=== PATIENT | male | born 1955 | race Caucasian/White ===

== ENCOUNTER 2017-11-29 08:04 | Emergency (ER) | payer MEDICAID ==
[~2017-11-29] VITALS: Ht 182.9 cm; Wt 63.5 kg
[~2017-11-29 08:04] MED LIST: ACCUNEB SO1.25 MG/1 MISCELL; ACETAMINOPHEN325 M1 PO; ACETAMINOPHEN650 M1 PO; ALBUTEROL SULFAT2 MG INH; ALBUTEROL2.5 MG/0.5 INH; ALLERGY MEDICAT25 MG PO; ALLOPURINOL 10100 M1 PO; AMBIEN 5 MG TABL5 M1 PO; AMBIEN5 MG PO; AMLACTIN1 EACH TP; ASPIR 8181 MG PO; ATIVAN0.5 MG PO; ATIVAN1 MG PO; BACTRIM DS TAB1 EAC1 PO; BACTRIM DS TAB1 EACH PO; BENADRYL25 MG PO; CARDIZEM CD120 MG PO; CARDIZEM CD180 MG PO; CARDIZEM30 MG PO; CELEXA20 MG PO; CENTRUM SILVER1 EAC4 PO; CIPRO250 M1 PO; CIPROFLOXACIN500 M1 PO; COLACE100 MG PO; CORDARONE200 MG PO; DIPHENHYDRAMINE25 M3 PO; DOXYCYCLINE 10100 MG PO; DULCOLAX5 MG PO; DUONEB 2.5-0.5 M3 ML INH; FEVERALL650 MG RECTAL; FLEXERIL PO; FLOMAX0.4 MG PO; FLONASE 0.05%50 MCG NASAL; FLORANEX TABLE1 EACH PO; FOLIC ACID1 MG PO; GABAPENTIN 100100 MG PO; HYDROCODON-ACE1 EAC7 PO; HYDROCODON-ACE1 EACH PO; HYDROCODONE-AP1 EAC6 PO; HYDROXYZINE HCL25 M1 PO; HYDROXYZINE HCL50 MG PO; K-PHOS #2 TABL1 EACH PO; LEVAQUIN 500 M500 M1 PO; LEVAQUIN 500 M500 M2 PO; LEVAQUIN 500 M500 M3 PO; LEVAQUIN 500 M500 M4 PO; LEVOTHYROXIN0.112 M1 PO; LEVOTHYROXINE 0.15MG PO; LOPRESSOR 12.12.5 MG PO; LOPRESSOR25 PO; MAG-AL PLUS SUS30 ML PO; MAGNESIUM OXID200 MG PO; MAGOX 400400 MG PO; MEDROLDOSEPACK PO; MEGESTROL400 MG/12; MELATONIN3 MG PO; MELATONIN5 M1 PO; MEROPENEM 1 GM V1 GM IVPB; METOPROLOL TART25 MG PO; MILK OF MA400 MG/5 M PO; MINOCIN100 MG PO; MIRALAX17 GM PO; MOBIC7.5 MG; MUCINEX600 MG PO; NEBULIZER MISCELL; NORCO 5-325 TA1 EACH PO; NORVASC 5 MG TAB5 MG PO; NYSTATIN 1100000 U/M PO; OMEPRAZOLE 20 M20 M1 PO; ONDANSETRON HCL4 M2 IV PUSH; ONDANSETRON HCL4 M2 PO; PANTOPRAZOLE SO40 M1 PO; PAXIL10 MG; PAXIL10 MG PO; PERCOCET 5-3251 EACH PO; PERCOCET PO; PHENERGAN 25 MG25 M1 IV PUSH; PHENERGAN 25 MG25 M1 PO; PREDNISONE 10 M10 M1 PO; PREDNISONE 10 M10 MG PO; PREDNISONE 20 M20 MG PO; PREDNISONE10 MG PO; PROAIR HFA8.5 GM INH; PROBIOTIC1 EAC1 PO; PROSCAR 5MG TABL5 MG PO; PROTONIX40 M1 PO; RAPAFLO8 MG PO; REMERON15 MG; SALINE NASAL SP30 ML NASAL; SYMBICORT160 MCG/4. INH; THERAGRAN-M PR1 EAC1 PO; THIAMINE HCL100 MG PO; TRAMADOL 50 MG50 MG PO; TRINATE TABLET1 TAB PO; TYLENOL325 MG PO; ULTRAM50 MG PO; UNICOMPLEX M TA1 TA1 PO; VANCOMYCIN HCL1 GM IV; VITAMIN B-1100 M1 PO; ZANTAC 150MG T150 MG PO
[2017-11-29] MEDS ORDERED: FLOMAX0.4 MG PO (08:12)
[2017-11-29 08:34] LABS: ABSOLUTE EOSINOPHILS 0.7 thou/uL (0.0-0.7); ABSOLUTE LYMPHOCYTES 1.6 thou/uL (0.8-5.3); ABSOLUTE MONOCYTES 0.8 thou/uL (0.0-1.2); BASOPHILS 0.4 %; EOSINOPHILS 8.9 %; HEMATOCRIT 40.4 % (42.0-52.0); HEMOGLOBIN 13.7 gm/dL (14.0-18.0); LYMPHOCYTES 19.1 %; MCH 31.1 pg (26.0-34.0); MCV 91.5 fL (80.0-100.0); MONOCYTES 9.4 %; MPV 6.8 fl. (7.2-11.1); NUCLEATED RBCS 0 /100WBC; PLATELET COUNT* 173 thou/uL (150-400); POLYS 62.2 %; RBC 4.42 mil/uL (4.50-6.00); RDW-CV 18.2 % (10.5-14.5); WBC 8.1 thou/uL (4.0-11.0)
[2017-11-29 08:41] LABS: CALCIUM 8.6 mg/dL (8.5-10.1); CREATININE 0.8 mg/dL (0.6-1.3); POTASSIUM 3.7 mmol/L (3.5-5.1)
[2017-11-29 08:46] LABS: ALBUMIN 3.5 g/dL (3.4-5.0); TOTAL BILIRUBIN 0.6 mg/dL (<0.1-1.0)
[2017-11-29 08:54] LABS: URINE BILIRUBIN NEGATIVE (Negative); URINE BLOOD 2+ (Negative); URINE CLARITY CLEAR; URINE COLOR YELLOW; URINE GLUCOSE-RANDOM NEGATIVE (Negative); URINE KETONES NEGATIVE (Negative); URINE NITRITE-REFLEX NEGATIVE (Negative); URINE PROTEIN TRACE (Negative); URINE UROBILINOGEN 0.2 E.U./dl (0.2-1.0)
[2017-11-29 08:55] LABS: URINE LEUKOCYTES-REFLEX 2+ (Negative)
[2017-11-29 09:00] LABS: CASTS None Seen /LPF (None Seen); CRYSTALS None Seen /LPF (None Seen); MUCUS 0-3 Light strn/LPF (None Seen); SQUAMOUS 0-3 Few /LPF (0-3); URINE RBC 3-10 Few /HPF (0-2)
[2017-11-29] MEDS ORDERED: ZOFRAN ODT4 MG PO (10:31)
[2017-11-29] MEDS ORDERED: PHENAZOPYRIDIN200 M2 PO (10:31)
[2017-11-29] MEDS ORDERED: BACTRIM DS TAB1 EACH PO (10:31)
[2017-11-29 10:48] VITALS: BP 130/76
== END 2017-11-29 10:58 | disposition home or self-care (01) ==
LOC: M.ERS 08:04
PROVIDERS: Emergency Medicine Emergency Medical Services
DX: R33.9 Retention of urine, unspecified (principal); N39.0 Urinary tract infection, site not specified; R31.9 Hematuria, unspecified; I48.91 Unspecified atrial fibrillation; F17.210 Nicotine dependence, cigarettes, uncomplicated; J44.9 Chronic obstructive pulmonary disease, unspecified; F41.9 Anxiety disorder, unspecified; Z86.14 Personal history of Methicillin resistant Staphylococcus aureus infection; Z88.0 Allergy status to penicillin

== ENCOUNTER 2017-12-02 17:24 | Inpatient (IN) | payer MEDICAID ==
[~2017-12-02] VITALS: Ht 182.9 cm; Wt 63.5 kg
[~2017-12-02 17:24] MED LIST changes: +PHENAZOPYRIDIN200 M2 PO; +ZOFRAN ODT4 MG PO
[2017-12-02 17:27] VITALS: BP 132/84
[2017-12-02 18:30] LABS: ABSOLUTE EOSINOPHILS 0.6 thou/uL (0.0-0.7); ABSOLUTE LYMPHOCYTES 1.9 thou/uL (0.8-5.3); ABSOLUTE MONOCYTES 0.6 thou/uL (0.0-1.2); ABSOLUTE NEUTROPHILS 3.9 thou/uL (1.6-8.1); BASOPHILS 0.5 %; EOSINOPHILS 8.9 %; HEMATOCRIT 39.9 % (42.0-52.0); HEMOGLOBIN 13.3 gm/dL (14.0-18.0); LYMPHOCYTES 26.7 %; MCH 31.5 pg (26.0-34.0); MCHC 33.4 g/dL (28.0-37.0); MCV 94.1 fL (80.0-100.0); MONOCYTES 8.3 %; MPV 7.4 fl. (7.2-11.1); NUCLEATED RBCS 0 /100WBC; PLATELET COUNT* 181 thou/uL (150-400); POLYS 55.6 %; RBC 4.24 mil/uL (4.50-6.00); RDW-CV 17.9 % (10.5-14.5)
[2017-12-02 18:39] LABS: ANION GAP 4 mmol/L (7-16); BUN 10 mg/dL (7-18); CALCIUM 8.7 mg/dL (8.5-10.1); CHLORIDE 98 mmol/L (98-107); CO2 30 mmol/L (21-32); GLUCOSE 93 mg/dL (70-99); POTASSIUM 4.1 mmol/L (3.5-5.1); SODIUM 132 mmol/L (136-145)
[2017-12-02 18:51] LABS: URINE BILIRUBIN NEGATIVE (Negative); URINE BLOOD NEGATIVE (Negative); URINE CLARITY CLEAR; URINE COLOR YELLOW; URINE GLUCOSE-RANDOM NEGATIVE (Negative); URINE KETONES NEGATIVE (Negative); URINE LEUKOCYTES-REFLEX NEGATIVE (Negative); URINE PROTEIN NEGATIVE (Negative)
[2017-12-02 18:52] LABS: ALBUMIN 3.8 g/dL (3.4-5.0); ALKALINE PHOSPHATASE 135 U/L (46-116); LIPASE 82 U/L (73-393); NT-PRO BRAIN NAT PEPTIDE 105 pg/mL (<300); SGOT 18 U/L (15-37); SGPT 16 U/L (30-65); TOTAL BILIRUBIN 0.4 mg/dL (<0.1-1.0); TOTAL PROTEIN 7.3 g/dL (6.4-8.2); TROPONIN-I LEVEL <0.06 ng/mL (<0.06)
[2017-12-02 18:55] LABS: URINE NITRITE-REFLEX POSITIVE (Negative)
[2017-12-02 18:58] LABS: BACTERIA-REFLEX None Seen /HPF (None Seen); CASTS None Seen /LPF (None Seen); CRYSTALS None Seen /LPF (None Seen); SQUAMOUS 0-3 Few /LPF (0-3); URINE RBC None Seen /HPF (0-2); URINE WBC-REFLEX 0-5 Rare /HPF (0-5)
[2017-12-02 22:50] VITALS: BP 114/73
[2017-12-02 23:00] VITALS: BP 106/65
--- NOTE | 2017-12-03 07:27 | NUR ---
PATIENT ARRIVED ON FLOOR FROM ER ABOUT 2250. PATIENT ADMISSION HISTORY AND ASSESSMENT WAS COMPLETED CHARTED. IV FLUIDS WERE STARTED AT 100 ML/HR. STOOL FOR CULTURE AND CDIFF WERE SENT RESULTS PENDING. WILL CONTINUE TO MONITOR.
[2017-12-03 08:00] VITALS: BP 106/70
--- NOTE | 2017-12-03 12:28 | NUR ---
WOUND CARE NOTE: ASSESSMENT FOR A PRESSURE ULCER TO THE LEFT TOES. PATIENT DOES NOT HAVE ANY WOUNDS TO THE LEFT FOOT, BUT PRESENTS WITH A FULL THICKNESS ULCERATION TO THE RIGHT 2ND TOE. THIS IS FROM FRICTION/PRESSURE FROM HIS GREAT TOE. HE HAS WHAT APPEARS HALLUX VALGUS. WOUND MEASURES 0.4X0.6X0.1, WOUND BED IS MOIST, YELLOW. GIO-WOUND WITH INFLAMMATION. PATIENT ADMITS TO SIGNIFICANT PAIN TO THIS AREA LAST NIGHT THAT KEPT HIM UP. CLEANSED AREA WITH WOUND CLEANSER, PATTED DRY. APPLIED OPTIFOAM AG AND SECURED WITH TAPE. PATIENT'S TOENAILS ARE LONG AND YELLOW IN DISCOLORATION. EXTREMELY FLAKEY SKIN TO FEET EXTENDING UPWARDS TO MID VARGAS. PALPABLE PEDAL PULSES BILATERALLY. PATIENT HAD INCONTINENCE OF STOOL, CLEANSED, NEW CHUX PLACED AND BARRIER OINTMENT. BUTTOCKS, SACRUM, AND PERINEAL AREA ARE RED AND IRRITATED FROM THE STOOL. EDUCATED PATIENT TO KEEP FEET , LIKES TO HAVE THEM PRESSED TOGETHER. COMMUNICATED UNDERSTANDING. EDUCATED PATIENT ON DRESSING USED FOR TOE, COMMUNICATED UNDERSTANDING. RECOMMEND CONSULT DR. GARCIA-PAO TRIM AND R. 2ND TOE WOUND VENELEX OINTMENT TO BUTTOCKS, SACRUM, AND PERINEUM BID AND PRN INCONTINENCE FREQUENT CHECKS FOR INCONTINENCE RECTAL TUBE IF CONTINUES WITH LOOSE, LIQUID STOOL TO PROTECT SKIN ENCOURAGE GOOD NUTRITION/HYDRATION-ALBUMIN 3.8
--- NOTE | 2017-12-03 14:10 | NUR ---
SW met with pt to complete initial assessment, introduce self, and SW role. Pt lives alone andhas support in his sister. Pt has walker. Pt has hx ETOH abuse. Pt has hx LTC [facility]. Pt has hx most recently with [facility] and pt said since Medicaid does not pay for therapy, he denied needing HH for just nursing. SW to continue to follow to assist with safe dc planning.
--- NOTE | 2017-12-03 14:41 | NUR ---
Pt was seen d/t wound of full thickness ulceration to left toe. Pt was admitted d/t UTI, Diarrhea, and volume depletion. Pt was asleep when RD visited. RN stated that pt is eating well but would benefit from BOOST PLUS BID. RD ordered. Note + ETOH abuse. RN states that pt is doing better than he has in prior admission. Chart Reviewed. Low nutrition risk.
[2017-12-03 16:23] VITALS: BP 96/60
--- NOTE | 2017-12-03 17:45 | NUR ---
PATIENT HAS BEEN ALERT AND ORIENTED TODAY VERY PLEASANT. NO COMPLOAINTS OF ANY PAIN TODAY. PATIENT HAS REPORTED THAT DIARRHEA HAS SLOWED DOWN THIS AFTERNOON. VITAL SIGNS HAVE BEEN STABLE TODAY. IV WORKS WELL IN LEFT ARM FOR FLUIDS. CALL LIGHT IS IN REACH, WILL CONTINUE TO MONITOR.
[2017-12-03 20:00] VITALS: BP 112/61
--- NOTE | 2017-12-03 20:13 | EKG ---
[place] [address] ELECTROCARDIOGRAM REPORT Name: INDRA BEGUM LYLA Room: [address] ADM IN ..#: [id number] Admission: 12/02/17 Attend Phys: Kenny Herzog MD Discharge: Date of : 59 Report #: [id number] THIS REPORT FOR: //name// [facility] ED Test Date: 2017-12-02 Test Time: 17:50:37 Pat Name: INDRA BEGUM Department: Room: [facility] Gender: M Biochemistry Technician: Todd GROVE : 1955 Requested By: Juan R Weller Order Number: [id number] MD: Farooq Rodriguez Measurements Intervals [place] Rate: 66 P: 43 MI: 173 QRS: -54 QRSD: 87 T: 53 QT: 394 QTc: 413 Interpretive Statements Sinus rhythm Left anterior fascicular block RSR' in V1 or V2, right VCD or RVH Compared to ECG 09/18/2017 08:41:51 Left anterior fascicular block now present RSR' in V1 or V2 now present Atrial premature complex(es) no longer present Electronically Signed On 12-03-2017 20:13:19 SOFTWARE CONFIGURATION SPECIALIST by Farooq Rodriguez [email or web address] <ELECTRONICALLY SIGNED> By: Farooq Rodriguez MD, FACC 12/03/172012 1750 1750 Farooq Rodriguez MD, [facility] /EPI
[2017-12-04 03:54] LABS: HEMATOCRIT 37.6 % (42.0-52.0); HEMOGLOBIN 12.4 gm/dL (14.0-18.0); MCH 31.2 pg (26.0-34.0); MCV 94.4 fL (80.0-100.0); MPV 7.3 fl. (7.2-11.1); RBC 3.98 mil/uL (4.50-6.00); RDW-CV 18.7 % (10.5-14.5); WBC 7.8 thou/uL (4.0-11.0)
[2017-12-04 04:20] LABS: ALBUMIN 2.9 g/dL (3.4-5.0); CALCIUM 8.3 mg/dL (8.5-10.1); CREATININE 0.9 mg/dL (0.6-1.3); MAGNESIUM 1.7 mg/dL (1.8-2.4); POTASSIUM 5.2 mmol/L (3.5-5.1); TOTAL BILIRUBIN 0.4 mg/dL (<0.1-1.0); TOTAL PROTEIN 5.8 g/dL (6.4-8.2)
--- NOTE | 2017-12-04 05:30 | NUR ---
ASSUMED CARE OF PT AT 1900 PT ALERT AND ORIENTED X4 VS AND ASSESSMENT STABLE. PT REQUSETED AND RECIEVED MELATONIN SCHEDULED BEFORE BED THEN SLEPT THROUGH THE NIGHT. WILL CONTINUE PLAN OF CARE.
[2017-12-04 08:00] VITALS: BP 101/66
[2017-12-04 16:00] VITALS: BP 106/65
--- NOTE | 2017-12-04 19:57 | NUR ---
I ASSUMED CARE OF THE PATIENT AT 0700. HE IS ALERT AND ORIENTED X4 AND IS UP WITH ASSIST X1. HE IS ABLE TO USE THE BEDSIDE COMMODE. HOURLY ROUNDING WAS COMPLETED AND PATIENT NEEDS ARE MET. BED IS IN THE LOW LOCKED POSITION AND CALL LIGHT IS IN REACH. PAIN IS DENIED. PATIENT IS HAPPY THAT HE HAS HIS APPETITE BACK. HE HAD 2 BOWEL MOVEMENTS AND WALKED WITH PT TODAY. D/C'D ORAL VANC SINCE C.DIFF WAS NEGATIVE. HE USES A URINAL. WILL CONTINUE TO MONITOR.
[2017-12-04 20:00] VITALS: BP 130/64
[2017-12-05 04:25] LABS: ABSOLUTE EOSINOPHILS 0.7 thou/uL (0.0-0.7); ABSOLUTE LYMPHOCYTES 1.6 thou/uL (0.8-5.3); ABSOLUTE MONOCYTES 0.7 thou/uL (0.0-1.2); ABSOLUTE NEUTROPHILS 6.6 thou/uL (1.6-8.1); BASOPHILS 0.2 %; EOSINOPHILS 6.9 %; HEMATOCRIT 37.7 % (42.0-52.0); HEMOGLOBIN 12.6 gm/dL (14.0-18.0); LYMPHOCYTES 17.1 %; MCH 31.4 pg (26.0-34.0); MCHC 33.5 g/dL (28.0-37.0); MCV 93.7 fL (80.0-100.0); MONOCYTES 6.9 %; MPV 7.4 fl. (7.2-11.1); NUCLEATED RBCS 0 /100WBC; PLATELET COUNT* 190 thou/uL (150-400); POLYS 68.9 %; RBC 4.03 mil/uL (4.50-6.00); RDW-CV 18.2 % (10.5-14.5); WBC 9.6 thou/uL (4.0-11.0)
[2017-12-05 04:46] LABS: CALCIUM 8.5 mg/dL (8.5-10.1); CREATININE 0.7 mg/dL (0.6-1.3); POTASSIUM 4.5 mmol/L (3.5-5.1)
--- NOTE | 2017-12-05 04:59 | NUR ---
ASSUMED CARE OF PT AT 1900 PT ALERT AND ORIENTED X4. VS AND ASSESSMENT STABLE. PT DENIED ANY COMPLAINTS AND SLEPT THROUGH THE NIGHT. WILL CONTINUE PLAN OF CARE.
[2017-12-05 08:15] VITALS: BP 105/68
[2017-12-05 16:02] VITALS: BP 111/72
--- NOTE | 2017-12-05 19:47 | NUR ---
ALERT AND ORIENTED X4. UP STAND BY ASSIST IN ROOM. IV IS PATENT AND SALINE LOCKED. PAIN IS BEING MANAGED WITH PO PAIN MEDICATION. DENIES NAUSEA. VSS ON ROOM AIR. HOURLY ROUNDS HAVE BEEN MAINTAINED THROUGHOUT SHIFT. CALL LIGHT IS WITHIN REACH. NURSING. WILL CONTINUE TO MONITOR.
[2017-12-05 20:00] VITALS: BP 116/73
--- NOTE | 2017-12-06 04:33 | NUR ---
PATIENT ORIENTED X4. UP WITH STAND BY ASSIST TO BATHROOM. DENIES PAIN OR NAUSEA. LOOSE BM X1 THIS SHIFT. VITALS STABLE ON ROOM AIR. WILL CONTINUE TO MONITOR.
[2017-12-06 09:00] VITALS: BP 111/71
[2017-12-06 11:50] VITALS: BP 111/71
--- NOTE | 2017-12-06 12:39 | NUR ---
PATIENT IS ALERT AND ORIENTED TODAY, PLEASANT UP WITH STAND BY ASSIST. SOME COMPLAINTS OF PAIN TODAY THAT IS CONTROLLED WITH ORAL PAIN MEDICATIONS. PATIENT IS BEING DISCHARGED TO HOME, WAITING ON PROVIDER TO SIGN HOME DISCHARGE PAPERS. CALL LIGHT IS IN REACH, WILL CONTINUE TO MONITOR. PHOTOS TAKEN OF WOUNDS AND FILED IN THE CHART.
[2017-12-06 13:44] VITALS: BP 111/71
[2017-12-06 13:45] VITALS: BP 111/71
--- NOTE | 2017-12-06 13:48 | NUR ---
YUMIKO met with pt to discuss dc planning. Pt does not have SNF benefits through Medicaid only insurance and pt was hopeful to go to inpatient rehab unit but then as YUMIKO asked pt to consider going to live in assisted, pt said that he would not want to live in assisted and he wanted to go home. Pt agreeable to nurse and preference on [facility]. YUMIKO faxed referral and dc orders to [facility] at [phone].
--- NOTE | 2017-12-06 14:55 | NUR ---
PATIENT LEFT UNIT AT 1330. ALERT AND ORIENTED X4. UP STAND BY ASSIST IN ROOM. IV DC'D. PAIN BEING MANAGED WITH PO PAIN MEDICAITON. DENIES NAUSEA. ALL PERSONAL ITEMS LEFT WITH PATIENT. DISCHARGE INSTRUCTIONS, PRESCRIPTIONS, NEW MEDICATION INFORMATION SENT WITH PATIENT. VSS ON ROOM AIR. HOURLY ROUNDS HAVE BEEN MAINTAINED. LEFT WITH UNRELATED ADULT VIA CAR.
[2017-12-06 17:10] VITALS: BP 111/71
== END 2017-12-06 17:34 | disposition home health service (06) | DRG 689 ==
LOC: M.ERS 17:24 → M.TBA-ER 21:48 → M.3W 21:48
PROVIDERS: Internal Medicine; Physician Assistant; ADMIT Internal Medicine
DX: N39.0 Urinary tract infection, site not specified (principal); E43 Unspecified severe protein-calorie malnutrition; I62.03 Nontraumatic chronic subdural hemorrhage; Z68.1 Body mass index [BMI] 19.9 or less, adult; J44.9 Chronic obstructive pulmonary disease, unspecified; I10 Essential (primary) hypertension; I48.91 Unspecified atrial fibrillation; F41.9 Anxiety disorder, unspecified; F17.210 Nicotine dependence, cigarettes, uncomplicated; R19.7 Diarrhea, unspecified; R53.81 Other malaise; K29.70 Gastritis, unspecified, without bleeding; B95.2 Enterococcus as the cause of diseases classified elsewhere; Z89.422 Acquired absence of other left toe(s); Z88.0 Allergy status to penicillin; Z79.899 Other long term (current) drug therapy

== ENCOUNTER → 2017-12-15 | Outpatient (CLI) | payer MEDICAID ==
[~2017-12-15] MED LIST changes: +ACID CONTROL150 MG; +ASPERCREME1 EACH TOP; +CELEXA10 MG PO; +CLARITIN10 MG PO; +KEFLEX500 M1 PO; +LOPERAMIDE 2 MG2 M1 PO; +PEPCID20 MG PO; +PHENAZOPYRIDIN100 M1 PO; +PRENATABS FA T1 EACH PO; +REMERON15 MG PO
== END ==
LOC: M.WC 03:29
DX: S91.301D Unspecified open wound, right foot, subsequent encounter (principal); J43.9 Emphysema, unspecified; F10.10 Alcohol abuse, uncomplicated; F32.9 Major depressive disorder, single episode, unspecified; F17.200 Nicotine dependence, unspecified, uncomplicated; X58.XXXD Exposure to other specified factors, subsequent encounter

== ENCOUNTER 2018-02-14 00:23 | Inpatient (IN) | payer MEDICAID ==
[~2018-02-14] VITALS: Ht 182.9 cm; Wt 59.0 kg
--- NOTE | ~2018-02-14 | PROC ---
[address] [address] PROCEDURE REPORT Name: INDRA BEGUM LYLA Room: [address] IN M.R.#: [id number] Admission: 02/14/18 Attend Phys: Kenny Herzog MD Discharge: 02/18/18 Date of : 59 Report #: [id number] THIS REPORT FOR: //name// Please see the Provation report in Perceptive 7 content. (GI) By: 0653Medical Records Staff JOSSY /RONI
[~2018-02-14 00:23] MED LIST changes: -ACID CONTROL150 MG; -ASPERCREME1 EACH TOP; -CELEXA10 MG PO; -CLARITIN10 MG PO; -KEFLEX500 M1 PO; -LOPERAMIDE 2 MG2 M1 PO; -PEPCID20 MG PO; -PHENAZOPYRIDIN100 M1 PO; -PRENATABS FA T1 EACH PO; -REMERON15 MG PO
[2018-02-14 00:24] VITALS: BP 129/87
[2018-02-14 01:10] LABS: HEMOGLOBIN 14.3 gm/dL (14.0-18.0); MCH 33.7 pg (26.0-34.0); MCHC 34.1 g/dL (28.0-37.0); MCV 98.8 fL (80.0-100.0); MPV 7.5 fl. (7.2-11.1); NUCLEATED RBCS 0 /100WBC; PLATELET COUNT* 93 thou/uL (150-400); RBC 4.25 mil/uL (4.50-6.00); RDW-CV 15.3 % (10.5-14.5); WBC 5.7 thou/uL (4.0-11.0)
[2018-02-14 01:13] LABS: ANION GAP 11 mmol/L (7-16); APTT 29.1 Seconds (25.0-31.3); BUN 10 mg/dL (7-18); CHLORIDE 102 mmol/L (98-107); CO2 29 mmol/L (21-32); GLUCOSE 81 mg/dL (70-99); POTASSIUM 3.1 mmol/L (3.5-5.1); SODIUM 142 mmol/L (136-145)
[2018-02-14 01:24] LABS: ALBUMIN 3.4 g/dL (3.4-5.0); ALKALINE PHOSPHATASE 99 U/L (46-116); NT-PRO BRAIN NAT PEPTIDE 143 pg/mL (<300); SGOT 52 U/L (15-37); SGPT 35 U/L (30-65); TOTAL BILIRUBIN 0.6 mg/dL (<0.1-1.0); TOTAL PROTEIN 6.7 g/dL (6.4-8.2); TROPONIN-I LEVEL <0.06 ng/mL (<0.06)
[2018-02-14 02:27] LABS: ABSOLUTE EOSINOPHILS 0.9 thou/uL (0.0-0.7); ABSOLUTE LYMPHOCYTES 1.5 thou/uL (0.8-5.3); ABSOLUTE MONOCYTES 0.5 thou/uL (0.0-1.2); ABSOLUTE NEUTROPHILS 2.9 thou/uL (1.6-8.1); PLATELET ESTIMATE DECREASED
[2018-02-14 02:30] LABS: URINE BILIRUBIN NEGATIVE (Negative); URINE BLOOD NEGATIVE (Negative); URINE CLARITY CLEAR; URINE COLOR YELLOW; URINE GLUCOSE-RANDOM NEGATIVE (Negative); URINE KETONES NEGATIVE (Negative); URINE LEUKOCYTES-REFLEX 1+ (Negative); URINE NITRITE-REFLEX NEGATIVE (Negative); URINE PROTEIN NEGATIVE (Negative); URINE SPECIFIC GRAVITY <= 1.005 (1.005-1.030)
[2018-02-14 02:49] LABS: CASTS None Seen /LPF (None Seen); SQUAMOUS 0-3 Few /LPF (0-3); URINE WBC-REFLEX 6-15 Few /HPF (0-5)
[2018-02-14 02:50] LABS: BACTERIA-REFLEX 1-9 Few /HPF (None Seen); CRYSTALS None Seen /LPF (None Seen); URINE RBC 0-2 Rare /HPF (0-2)
--- NOTE | 2018-02-14 03:50 | NUR ---
PT CURRENTLY RESTING, NOTED TREMORS, DENIES BEING COLD; REPORTS WEAK; VOIDED PER URINAL WITHOUT DIFFICULTY
[2018-02-14 04:25] VITALS: BP 116/74
--- NOTE | 2018-02-14 05:34 | NUR ---
PT ADMITTED FROM ER. HISTORY AND ASSESSMENT COMPLETE. MED/SURG PT. IVF INFUSING. FALL PRECAUTIONS IN PLACE INCLUDING BED ALARM. PT REPORTS WEAKNESS WITH A FALL AT HOME YESTERDAY. AMBULATES WITH A WALKER. PT VERY THIN. APPEARS MALNOURISHED. HISTORY OF ETOH. STATES NO ETOH SINCE SEP 03. PT HAS TREMORS. CARE PLANS IN PLACE. DENIES PAIN.
[2018-02-14 08:00] VITALS: BP 111/63
--- NOTE | 2018-02-14 11:19 | EKG ---
[place] [address] ELECTROCARDIOGRAM REPORT Name: INDRA BEGUM LYLA Room: [place] [address] ADM IN [facility]#: [id number] Admission: 02/14/18 Attend Phys: Kenny Herzog MD Discharge: Date of : 59 Report #: [id number] THIS REPORT FOR: //name// [facility] ED Test Date: 2018-02-14 Test Time: 00:51:15 Pat Name: INDRA BEGUM Department: Room: Gender: Lan Engineer: : 1955 Requested By: Solomon Mcdonough Order Number: [id number] MD: Kashmir Bennett Measurements Intervals [place] Rate: 73 P: 45 MN: 196 QRS: -68 QRSD: 87 T: 61 QT: 402 QTc: 443 Interpretive Statements Sinus rhythm Atrial premature complex Left anterior fascicular block Compared to ECG 12/02/2017 17:50:37 Atrial premature complex(es) now present Electronically Signed On 02-14-2018 11:19:44 CDT by Kashmir Bennett [email or web address] <ELECTRONICALLY SIGNED> By: Kashmir Bennett MD, [facility] 02/14/18 1119 005 0051 Kashmir Bennett MD, [facility] /EPI
--- NOTE | 2018-02-14 11:26 | NUR ---
VSS, ASSUMED CARE IN THE AM, ASSESSMENT PERFORMED AND CHARTED, FALL PRECAUTIONS IN PLACE AND CALL LIGHT IN REACH, PT IS A&O4 AND UP WITH ONE AND WALKER AND IS VERY WEAK, PT IS MED-SURG STATUS, PT GOAL IS TO IMPROVE ACTIVITY AND WORK WITH PT/OT, PT STATES A HE HAS A HEAD-ACH, WILL FOLLOW WITH PLAN OF CARE AND HOURLY ROUNDS.
--- NOTE | 2018-02-14 14:21 | NUR ---
PATIENT SEEN TO ADDRESS SKIN BREAKDOWN ON RIGHT BUTTOCK. PRESENTS A HEALING STAGE 2 PRESSURE ULCER MEASURING 1.5 X 0.8 X 0.1 CM SUPERFICIAL LESON CONTAINING THIN FRIABLE EPITHELIAL TISSUE AND SCANT SEROUS DRAINAGE. PLAN TO TREAT WITH OFFLOADING -- Q2HR TURN SCHEDULE AND PROTECTING WITH MOISTURE BARRIER. THE PERIWOUND AREA IS REDDENED, BUT THIS BLANCHES EASILY AND IS UNCONCERNING AT THIS TIME. PATIENT INSTRUCTED ON IMPORTANCE OF FREQUENT REPOSITIONING AND NUTRIENT DENSE DIET. PATIENT STATES HE UNDERSTANDS.
[2018-02-14 16:00] VITALS: BP 125/62
[2018-02-14 20:00] VITALS: BP 109/64
[2018-02-14 23:38] VITALS: BP 94/58
--- NOTE | 2018-02-15 04:11 | NUR ---
ASSUMED PT CARE AT 1930, PT IS A&OX4, PT IS MED SURG. VSS. PT IS ON RA SATTING MID TO HIGH 90'S. AT THIS TIME. PT HAS IVF INFUSING PER MAR. PT IS NPO FOR PENDING MEGD THIS AFTERNOON. PT VERBALIZES UNDERSTANDING. PT IS ON ISOLATION FOR POSS. C DIFF. STOOL SAMPLE STILL NEEDS TO BE SENT DOWN TO THE LAB. PT HAS NOT HAD ANY STOOLS THIS SHIFT. PT DENIES ANY PAIN OR NEEDS AT THIS TIME. BED IN LOW POSITION, CALL LIGHT IN REACH, BED ALARM ON. YELLOW ARM BAND AND SOCKS IN PLACE. PT IS UP WITH ONE AND HIS PERSONAL WALKER TO THE BR. DUSTY CORONEL COMPLETED OF PT SAFETY.
[2018-02-15 04:47] LABS: ABSOLUTE EOSINOPHILS 0.9 thou/uL (0.0-0.7); ABSOLUTE LYMPHOCYTES 1.6 thou/uL (0.8-5.3); ABSOLUTE MONOCYTES 0.6 thou/uL (0.0-1.2); ABSOLUTE NEUTROPHILS 2.9 thou/uL (1.6-8.1); BASOPHILS 0.5 %; EOSINOPHILS 14.9 %; LYMPHOCYTES 26.6 %; MCHC 34.1 g/dL (28.0-37.0); MCV 99.5 fL (80.0-100.0); MONOCYTES 9.5 %; MPV 8.4 fl. (7.2-11.1); NUCLEATED RBCS 0 /100WBC; PLATELET COUNT* 68 thou/uL (150-400); POLYS 48.5 %; RBC 3.82 mil/uL (4.50-6.00); RDW-CV 15.7 % (10.5-14.5)
[2018-02-15 04:55] LABS: CALCIUM 8.1 mg/dL (8.5-10.1); CREATININE 0.9 mg/dL (0.6-1.3)
[2018-02-15 05:00] LABS: POTASSIUM 5.7 mmol/L (3.5-5.1)
[2018-02-15 08:00] VITALS: BP 123/71
--- NOTE | 2018-02-15 08:11 | NUR ---
ASSUMED PT. CARE AND RECEIVED REPORT AT 0730. PT A/OX4, VSS, PT MED/SURG STATUS. PT. C/O "POUNDING HEADACHE" THIS MORNING AND BEING HUNGRY. PT. NPO FOR EGD TODAY. FULL ASSESSMENT COMPLETED, REFER TO CHARTING. PT. REMAINS IN ISO FOR PENDING C-DIFF. FALL PRECAUTIONS IN PLACE, CALL LIGHT IN REACH, WILL CONTINUE WITH PLAN OF CARE.
[2018-02-15 11:00] LABS: ALBUMIN 3.1 g/dL (3.4-5.0); DIRECT BILIRUBIN 0.2 mg/dL (<0.1-0.3); TOTAL BILIRUBIN 0.4 mg/dL (<0.1-1.0); TOTAL PROTEIN 5.8 g/dL (6.4-8.2)
[2018-02-15 11:14] LABS: CALCIUM 7.9 mg/dL (8.5-10.1); CREATININE 0.8 mg/dL (0.6-1.3); POTASSIUM 4.4 mmol/L (3.5-5.1)
[2018-02-15 12:39] VITALS: BP 131/73
[2018-02-15 13:57] VITALS: BP 131/73
--- NOTE | 2018-02-15 14:03 | NUR ---
MET WITH PT TO DISCUSS HOME SITUATION/DC PLANNING. PT KNOWN TO CM FROM PREVIOUS HOSPITAL STAY. PT LIVES ALONE IN [facility]. HIS SISTER DAVI IS SUPPORTIVE. PT DRIVES, IS ABLE TO DO OWN ADLS, USES WALKER, CANE OR W/C. HE STATES HE HAS BEEN ABLE TO COOK AND CLEAN SOME. HE HAS HAD HH IN THE PAST WELL BEEN TO REHAB AND LTC. PT DOESN'T HAVE A SNF OPTION WITH HIS INSURANCE. PLAN IS FOR PT TO RETURN HOME AT DC. WILL FOLLOW
[2018-02-15 17:12] VITALS: BP 112/68
--- NOTE | 2018-02-15 17:42 | NUR ---
PT. PROGESSING TOWARDS GOALS. COMPLETED EGD, TOLERATED WELL. UPON RETURN GOOD APPETITE- ATE PARTIAL BOX LUNCH AND DINNER. PT. HAS DENIED NAUSEA OR STOOLS THROUGH OUT THE DAY. HOURLY ROUNDING COMPLETED FOR PT. SAFETY. FALL PRECAUTIONS REMAIN IN PLACE. PT. DID MENTION THAT HE FEEL THE OTHER DAY. PT. STARTED ON HYDROCODONE FOR PAIN RELIEF, NOTED RELIEF WITH 1 TAB Q6.
[2018-02-15 20:00] VITALS: BP 121/75
--- NOTE | 2018-02-16 02:44 | NUR ---
PATIENT RESTED IN BED. NO ACUTE CHANGES, PATIENT DID NOT SHOW SIGNS OF DISTRESS. PATIENT DID NOT HAVE BOWEL MOVEMENT. PATIENT IS BEING TURNT EVERY TWO HOURS. FALL PRECAUTIONS IN PLACE, BED ALARM ON, HOURLY ROUNDING OBSERVED, CALL LIGHT WITHIN REACH.
[2018-02-16 04:00] VITALS: BP 127/84
[2018-02-16 04:50] LABS: HEMATOCRIT 38.8 % (42.0-52.0); HEMOGLOBIN 13.1 gm/dL (14.0-18.0); MCH 33.8 pg (26.0-34.0); MCHC 33.8 g/dL (28.0-37.0); MPV 8.3 fl. (7.2-11.1); NUCLEATED RBCS 0 /100WBC; PLATELET COUNT* 72 thou/uL (150-400); RBC 3.88 mil/uL (4.50-6.00); RDW-CV 14.9 % (10.5-14.5); WBC 6.4 thou/uL (4.0-11.0)
[2018-02-16 05:24] LABS: ALBUMIN 2.7 g/dL (3.4-5.0); CALCIUM 7.9 mg/dL (8.5-10.1); CREATININE 0.8 mg/dL (0.6-1.3); POTASSIUM 4.9 mmol/L (3.5-5.1); TOTAL BILIRUBIN 0.4 mg/dL (<0.1-1.0); TOTAL PROTEIN 5.8 g/dL (6.4-8.2)
[2018-02-16 06:28] LABS: ABSOLUTE EOSINOPHILS 1.2 thou/uL (0.0-0.7); ABSOLUTE LYMPHOCYTES 2.5 thou/uL (0.8-5.3); ABSOLUTE MONOCYTES 0.3 thou/uL (0.0-1.2); ABSOLUTE NEUTROPHILS 2.4 thou/uL (1.6-8.1)
[2018-02-16 06:29] LABS: ANISOCYTOSIS 1+; PLATELET ESTIMATE DECREASED; POIKILOCYTOSIS 1+
--- NOTE | 2018-02-16 07:15 | NUR ---
CHANGE OF SHIFT BEDSIDE REPORT GIVEN ASSUMMED PATIENT CARE PATIENT SEEN AT BEDSIDE ASLEEP
[2018-02-16 08:00] VITALS: BP 135/86
--- NOTE | 2018-02-16 11:36 | NUR ---
CONTINUE TO FOLLOW, ENCOURAGED PT TO BE UP AND IN CHAIR AND ROOM. HAS THERAPY ORDERED. PT PLANS TO RETURN HOME AT [place]. WILL FOLLOW
[2018-02-16 15:19] VITALS: BP 117/79
--- NOTE | 2018-02-16 18:22 | NUR ---
PATIENT LAYING IN BED WATCHING TV MS STATUS HRR RA FAIR APPETITE 2 SMALL AMTS EMESIS TODAY 3 BM LOOSE CDIFF SENT EARLIER AND PENDING YELLOW UO GOOD 300CC+UNMEASURED UP WITH STANDBY BRP C/O SUBRAMANIAN TREATED WITH HYDROCODONE AND RELIEVED IV SITE R FA 20 GA SL CONS GI, SX ACCUCHECKS 96/106/112 ISOLATION SPECIAL CONTACT CALL LIGHT IN REACH AND INSTRUCTION AND FOLLOWED ORDERS FOR NM GE AND BARRIUM 02/17
[2018-02-16 20:00] VITALS: BP 112/76
[2018-02-17 04:25] VITALS: BP 98/65
--- NOTE | 2018-02-17 05:48 | NUR ---
PATIENT RESTED IN BED. PATIENT DID HAVE NAUSEA, PATIENT VOMIT SMALL AMOUNT AT TOP OF SHIFT. PATIENT HAD MUTIPLE LOOSE STOOLS. PATIENT IS NPO FOR GI TESTING. FALL PRECAUTIONS IN PLACE, BED ALARM ON, PATIENT TURNT Q2 HOURS. PATIENT DID NOT SHOW SIGNS OF DISTRESS.
--- NOTE | 2018-02-17 07:25 | NUR ---
CHANGE OF SHIFT BEDSIDE REPORT GIVEN PATIENT SEEN AT BEDSIDE, SLEEP ASSUMED PATIENT CARE
[2018-02-17 08:00] VITALS: BP 88/61
[2018-02-17 15:14] VITALS: BP 78/51
--- NOTE | 2018-02-17 18:48 | NUR ---
PATIENT REMAINS A AND O X 4 MS-HRR RA GOOD APPETITE LOOSE BMS X 3 GOOD UO UNMEASURED UP WITH 1 ASSIST IV 20 R FA IVF D51/2NS AT 80CC/HR ACCUCHECKS 93/76/125 CALL LIGHT IN REACH AND INSTRUCTION GIVEN AND FOLLOWED NO C/O PAIN AT THIS TIME
--- NOTE | 2018-02-17 19:02 | NUR ---
PATIENT REMAINS A AND O X 4 MS STATUS HRR RA GOOD APPETITE 3 BMS TODAY LOOSE GOOD UO UP WITH 1 ASSIST
[2018-02-17 20:00] VITALS: BP 104/73
[2018-02-18 04:00] VITALS: BP 103/70
[2018-02-18 04:23] LABS: ABSOLUTE EOSINOPHILS 0.9 thou/uL (0.0-0.7); ABSOLUTE LYMPHOCYTES 1.8 thou/uL (0.8-5.3); ABSOLUTE MONOCYTES 0.7 thou/uL (0.0-1.2); ABSOLUTE NEUTROPHILS 2.8 thou/uL (1.6-8.1); BASOPHILS 0.2 %; EOSINOPHILS 14.1 %; HEMATOCRIT 38.1 % (42.0-52.0); HEMOGLOBIN 12.7 gm/dL (14.0-18.0); LYMPHOCYTES 28.7 %; MCH 33.4 pg (26.0-34.0); MCHC 33.4 g/dL (28.0-37.0); MCV 99.9 fL (80.0-100.0); MONOCYTES 11.9 %; MPV 8.5 fl. (7.2-11.1); NUCLEATED RBCS 0 /100WBC; PLATELET COUNT* 98 thou/uL (150-400); POLYS 45.1 %; RBC 3.82 mil/uL (4.50-6.00); RDW-CV 14.7 % (10.5-14.5); WBC 6.1 thou/uL (4.0-11.0)
[2018-02-18 04:45] LABS: ALBUMIN 2.8 g/dL (3.4-5.0); CALCIUM 7.9 mg/dL (8.5-10.1); CREATININE 0.8 mg/dL (0.6-1.3); POTASSIUM 3.8 mmol/L (3.5-5.1); TOTAL BILIRUBIN 0.3 mg/dL (<0.1-1.0); TOTAL PROTEIN 5.8 g/dL (6.4-8.2)
--- NOTE | 2018-02-18 04:47 | NUR ---
PATIENT RESTED IN BED, NO ACUTE CHANGES. PATIENT DID NOT SHOW SIGNS OF DISTRESS. THE PATIENT DID NOT HAVE ANY BOWEL MOVEMENTS OVERNIGHT. PATIENT IS FEEDING WELL. PATIENT DID NOT COMPLAIN OF ABDOMINAL PAIN OR NAUSEA AND VOMMITING. FALL PRECAUTIONS IN PLACE, PATIENT WAS TURNT Q2 HOURS, CALL LIGHT WITHIN REACH, HOURLY ROUNDING OBSERVED.
[2018-02-18 09:25] VITALS: BP 99/64
--- NOTE | 2018-02-18 12:14 | NUR ---
RECEIVED CONSULT FOR POSSIBLE REHAB ADMISSION. CONSULT HAS BEEN ACKNOWLEDGED BY [employer] DEVELOPER AND DR. ZACARIAS. PT ADMITTED WITH UTI, N&V, WEAKNESS. PT WITH PT/OT/ST NEEDS. GI WORKUP COMPLETE. PT WOULD BENEFIT FROM ACUTE REHAB. WILL PLAN TO ADMIT PT TO REHAB ONCE MEDICALLY STABLE PENDING INSURANCE AUTH. SPOKE WITH CM, WINSOME AND NOTIFIED OF TENTATIVE ACCEPTANCE TO REHAB PENDING AUTH. THANK YOU FOR THIS CONSULT.
--- NOTE | 2018-02-18 13:51 | NUR ---
Pt to dc to [facility] inpatient rehab unit today.
--- NOTE | 2018-02-18 15:22 | NUR ---
REPORT CALLED TO [facility].
[2018-02-18 15:50] VITALS: BP 99/64
[2018-02-18 16:09] VITALS: BP 113/79
--- NOTE | 2018-02-18 16:18 | NUR ---
PT TRANSFERED TO ROOM 326 REHAB.
[2018-02-18 16:28] VITALS: BP 124/76
--- NOTE | 2018-02-25 13:09 | CON ---
[address] [address] CONSULTATION Name: INDRA BEGUM LYLA Room: [address] IN M.R.#: [id number] Admission: 02/14/18 Attend Phys: Kenny Herzog MD Discharge: 02/18/18 Date of : 59 Report #: [id number] THIS REPORT FOR: //name// CC: Bharat Herzog DICTATED BY: Karie Infante [facility] DATE OF SERVICE: 02/14/2018 PRIMARY CARE PHYSICIAN: Bharat Bolden MD Please note at the time of this dictation, the patient was seen and physically examined by myself. REASON FOR CONSULTATION: Dysphagia. HISTORY OF PRESENT ILLNESS: This is a 62-year-old male who presented to the Emergency Room with increased weakness over the last several days. He had been reporting some difficulty swallowing, some vomiting on occasion and looser stools. He also had some night sweats and he was feeling more congested. He states since the last time he was here back in November that his nose has been very runny and having a lot of drainage and he just has not been eating very well since that time. He states he has been taking some Protonix off and on when he notices his acid reflux is kind of bothering him. During his episodes of any vomiting, he had noted no bright red blood or any melena at that time. The patient did undergo an EGD back in December of [address] Snowden that showed a very tortuous and spastic esophagus. He had a tight LES and Botox was used at that time 1-2 cm hiatal hernia and he had some shallow duodenal ulcers at that time and biopsy was negative for H. pylori. Numerous attempts were made at that time to get the patient back for followup EGD to check the status of his ulcers, but he refused to have that done as well as an esophageal motility study at that time as well. The patient states he has not been taking his Protonix regularly, only as needed. He states his bowels normally he will move once or twice a day, have been a little bit looser. He has had issues with urinary tract infection and he was found to have one upon admission at this time. He denies any bright red blood or any melena in his stool as well. There is no mention as to if he has ever had a colonoscopy done in the past and patient does not recall that either. ALLERGIES: PENICILLIN. MEDICATIONS: From home include guaifenesin, Zofran, pantoprazole, DuoNeb, [place] [address] CONSULTATION Name: INDRA BEGUM LYLA Room: [address] IN ..#: [id number] Admission: 02/14/18 Attend Phys: Kenny Herzog MD Discharge: 02/18/18 Date of : 59 Report #: [id number] PAST MEDICAL HISTORY: Includes hypertension, atrial fib, COPD, anxiety, L3 fracture, history of MRSA of his left foot, history of respiratory failure and has been on a vent. He has had a chronic subdural hematoma. PAST SURGICAL HISTORY: Includes amputation of the left toe and a fracture of the L3. FAMILY HISTORY: Noncontributory. SOCIAL HISTORY: Smokes about a half a pack per day. He has had heavy alcohol use in the past, which he states in August he quit drinking and at that time he was having several beers a day, but in the past was significantly heavier. He has also been in and out of extended care facilities and is currently living in an apartment in [place]. REVIEW OF SYSTEMS: A 12-point review of systems is essentially negative except what is mentioned in the HPI. PHYSICAL EXAMINATION: VITAL SIGNS: Temperature 36.9, pulse 61, respirations 16, blood pressure 111/63. HEART: Regular rate and rhythm. LUNGS: Diminished essentially clear. ABDOMEN: Soft, positive bowel sounds in all 4 quadrants with no masses or tenderness noted. OVERALL APPEARANCE: The patient is very cachectic looking and malnourished. LABORATORY DATA: Hemoglobin is 14.3, hematocrit 42, white count is 5.7, platelets is 93. Sodium 142, potassium 3.1, chloride 102, CO2 of 29, BUN is 12, creatinine 1.0, GFR 76, and glucose is 81. PT is 10. INR is 1.0, total bilirubin is 0.6, alkaline phosphatase is 99, ALT 35, AST is 52. CT of the abdomen and pelvis showed thickening of his esophagus and fatty liver with a questionable lesion in the liver in the left lobe, otherwise negative. IMPRESSION: 1. Dysphagia. 2. Vomiting. 3. Gastroesophageal reflux disease. 4. Liver lesion in the left lobe. 5. Fatty liver. 6. Thrombocytopenia. 7. Urinary tract infection. 8. History of alcohol abuse, quit in 08/2017. PLAN: 1. EGD tomorrow since he already [place] [address] CONSULTATION Name: INDRA BEGUM LYLA Room: [address] IN [facility].#: [id number] Admission: 02/14/18 Attend Phys: Kenny Herzog MD Discharge: 02/18/18 Date of : 59 Report #: [id number] 2. Await stool cultures. 3. We will get an ultrasound of the abdomen to further evaluate his liver lesion. 4. AFP. 5. Further recommendations to be made after the above have been obtained. Thank you for allowing us to participate in this patient's care. Please do not hesitate to call with any questions in regard to this consult. ADDENDUM I have personally seen and examined the patient and reviewed labs and imaging studies. The patient reports that he ran out of his Protonix about 3-4 weeks ago and he has been experiencing GERD symptoms. He also occasionally has dysphagia, which is mainly to solids and large pills. He has been complaining of diarrhea as well and reports that his stools have been loose, but denies any hematochezia or melena. His last alcoholic consumption was in 08/2017. Per imaging, the patient has a left lobe lesion, which needs to be further evaluated. Abdominal ultrasound will be ordered in regard to this. Meanwhile, we will obtain a stool assay to rule out Clostridium difficile. We will perform an upper endoscopy since the patient has had history of peptic ulcer disease back in 2015 and was supposed to follow up which he has not. We will make further recommendation once stool study, abdominal ultrasound result and upper scope is performed. <ELECTRONICALLY SIGNED> By: Calvin Perdue MD 02/25/18 1309 1059 [id number] Andree Perdue MD /nt
--- NOTE | 2018-03-15 15:21 | CON ---
[address] [address] CONSULTATION Name: INDRA BEGUM LYLA Room: [address] IN .#: [id number] Admission: 02/14/18 Attend Phys: Kenny Herzog MD Discharge: 02/18/18 Date of : 59 Report #: [id number] THIS REPORT FOR: //name// CC: Bharat Herzog DATE OF SERVICE: 02/17/2018 REASON FOR CONSULTATION: Evaluation and recommendations regarding post-acute rehabilitation. HISTORY OF PRESENT ILLNESS: This is a 62-year-old male admitted with weakness, anorexia, hyperglycemia and urinary tract infection with ongoing debility, alterations in activities of daily living from previous level of function of modified independent to independent with activities of daily living. Currently, he is supervision to minimum assistance of 1-2 depending on therapy, activity and time of day. He is known from previous admission as well as evaluation and consultation. He does have a history of alcohol abuse. Apparently, he has quit. He is an ongoing smoker. He has multiple medical comorbidities including COPD, diarrhea, dyspnea, history of fall, history of GI bleed, malnourishment and protein calorie malnutrition. ALLERGIES: PENICILLIN. MEDICATIONS: Reviewed and are available in the MAR. VITAL SIGNS AND LABORATORY DATA: Have been reviewed. PAST MEDICAL AND SURGICAL HISTORY: Hypertension, AFib, COPD, anxiety, L3 fracture, history of alcohol abuse, history of MRSA in left foot, left toe amputation, history of tobacco abuse, acute respiratory failure, chronic respiratory failure, severe protein calorie malnutrition, debility. FAMILY HISTORY: Heart disease. SOCIAL HISTORY: Denies recreational drug use, ongoing daily smoker. Past use of alcohol and likely continued. REVIEW OF SYSTEMS: A 14-point review of systems is done and is negative except as mentioned in the HPI, specifically no fever, chest pain, shortness of breath, abdominal pain or distention. ASSESSMENT: Severe protein calorie malnutrition, esophagitis, acute on chronic alcoholism, smoking, current urinary tract infection, current debility with alterations in activities of daily living and mobility, chronic [place] [address] CONSULTATION Name: INDRA BEGUM LYLA Room: [address] IN ..#: [id number] Admission: 02/14/18 Attend Phys: Kenny Herzog MD Discharge: 02/18/18 Date of : 59 Report #: [id number] PLAN: 1. Recommended short course of acute inpatient rehabilitation to facilitate safe discharge to the home setting where he lives alone and was previously modified independent to independent with activities of daily living. 2. We will follow acutely and we will anticipate rehabilitation stay once medically stable. <ELECTRONICALLY SIGNED> By: Mickie Reed DO 03/15/18 1521 1351 1911Mickie Reed DO /nt
== END 2018-02-18 16:00 | DRG 444 ==
LOC: M.ERS 00:23 → M.2W 03:31 → M.TBA-ER 03:31 → M.2W 03:31 → M.REH 02-18 16:15 → M.2W 02-18 16:15
PROVIDERS: Family Medicine; Internal Medicine; ADMIT Internal Medicine
PROC: 0DB98ZX Excision of Duodenum, Via Natural or Artificial Opening Endoscopic, Diagnostic (ICD-10-PCS; principal; 2018-02-15)
DX: K80.00 Calculus of gallbladder with acute cholecystitis without obstruction (principal); E43 Unspecified severe protein-calorie malnutrition; N39.0 Urinary tract infection, site not specified; Z68.1 Body mass index [BMI] 19.9 or less, adult; K20.9 Esophagitis, unspecified; I10 Essential (primary) hypertension; I48.91 Unspecified atrial fibrillation; J44.9 Chronic obstructive pulmonary disease, unspecified; F41.9 Anxiety disorder, unspecified; F17.210 Nicotine dependence, cigarettes, uncomplicated; R13.10 Dysphagia, unspecified; K21.9 Gastro-esophageal reflux disease without esophagitis; K76.9 Liver disease, unspecified; K76.0 Fatty (change of) liver, not elsewhere classified; D69.6 Thrombocytopenia, unspecified; F10.20 Alcohol dependence, uncomplicated; E87.6 Hypokalemia; K80.20 Calculus of gallbladder without cholecystitis without obstruction; K44.9 Diaphragmatic hernia without obstruction or gangrene; K31.84 Gastroparesis; K22.8 Other specified diseases of esophagus; Z79.899 Other long term (current) drug therapy; Z88.0 Allergy status to penicillin; Z91.14 Patient's other noncompliance with medication regimen

== ENCOUNTER 2018-02-18 13:56 | Inpatient (IN) | payer MEDICAID ==
[~2018-02-18] VITALS: Ht 182.9 cm; Wt 60.3 kg
[2018-02-18 20:22] VITALS: BP 114/78
--- NOTE | 2018-02-19 02:17 | NUR ---
ASSUMED CARE AT 1930. PATIENT ADMITTED TO ROOM 326 ON DAY SHIFT. ASSESSMENT COMPLETE. TAKES PILLS WHOLE A FEW AT A TIME WITH WATER. TURNS SELF. VOIDS PER URINAL. WELL FAMILIAR WITH REHAB ROUTINE. CALL LITE IN REACH. BED ALARM ON. SALINE LOCK TO RIGHT HAND INTACT. HAS AREA TO COCCYX/BUTTOCKS THAT IS PINK. PATIENT STATES THAT A "FEW DAYS AGO" HE HAD AT LEAST 6 DIARRHEA STOOLS AND HIS BOTTOM GOT IRRITATED THEN. HE STATES IT IS FEELING BETTER. TURNS SELF, REMINDED TO CONTINUE TO STAY OFF BUTTOCK AND SLEEP ON HIS SIDE. MEDICATED FOR LONG STANDING KNEE PAIN, SEE DEC. HOURLY ROUNDS CONTINUE. BED ALARM ON. CALL LITE IN REACH.
[2018-02-19 04:35] LABS: HEMATOCRIT 38.9 % (42.0-52.0); MCH 33.3 pg (26.0-34.0); MCHC 33.6 g/dL (28.0-37.0); MCV 99.3 fL (80.0-100.0); MPV 8.6 fl. (7.2-11.1); RBC 3.92 mil/uL (4.50-6.00); RDW-CV 14.8 % (10.5-14.5)
[2018-02-19 05:12] LABS: CALCIUM 8.1 mg/dL (8.5-10.1); CREATININE 0.7 mg/dL (0.6-1.3); POTASSIUM 4.2 mmol/L (3.5-5.1)
--- NOTE | 2018-02-19 05:37 | NUR ---
SLEPT SOME OF THE NIGHT. VOIDS PER URINAL. TURNS SELF. BED ALARM ON. CALL LITE IN REACH. HOURLY ROUNDS CONTINUE. NO FURTHER C/O PAIN.
[2018-02-19 07:30] VITALS: BP 128/78
--- NOTE | 2018-02-19 17:08 | NUR ---
ASSUMMED CARE OF PT AT 0730, PT ALERT AND ORIENTED, PT TRANSFERS WITH SBA/MIN ASSIST GB WALKER, AMBULATED TO DININGROOM, VOIDS PER URINAL/TOILET, ISOLATION PRECAUTIONS MAINTAINED, COMPLAINED OF PAIN IN KNEES, MEDICATED X 1 WITH GD RELIEF, BARRIER OINTMENT TO BUTTOCKS, BM X 1 THIS SHIFT, SALINE LOCK REMOVED FROM LEFT HAND, PARTICIPATED IN ALL THERAPIES, HOURLY ROUNDING COMPLETED, ASSESSMENT COMPLETE, WILL CONTINUE TO MONITOR.
[2018-02-19 20:28] VITALS: BP 134/76
--- NOTE | 2018-02-19 20:35 | NUR ---
SITTING UP IN BED AND WATCHING TV. VOIDS CLEAR/YELLOW URINE PER URINAL. JELLO AND DIET SODA PROVIDED PER REQUEST. TOOK MEDS WHOLE WITH WATER.
--- NOTE | 2018-02-20 05:46 | NUR ---
RESTED QUIETLY. NO FURTHER C/O PAIN. USED URINAL X 5 DURING THE NIGHT. HOURLY ROUNDING IN PROGRESS.
[2018-02-20 08:49] VITALS: BP 120/75
--- NOTE | 2018-02-20 16:27 | NUR ---
ASSUMMED CARE OF PT AT 0730, PT ALERT AND ORIENTED, PT TRANSFERS WITH ASSIST OF 1, GB WALKER, PT COMPLAINS OF BILATERAL KNEE PAIN, MEDICATED WITH GOOD RELIEF, TAKING FOOD AND FLUIDS WELL, AMBULATED TO DININGROOM FOR LUNCH, BM X 1 THIS SHIFT, VOIDS PER URINAL AND TOILET, BUTTOCK AREA RED, BARRIER OINTMENT APPLIED, PT STATES IT IS FROM LOOSE STOOLS HE HAD A FEW DAYS AGO, AND HE STATES IT IS IMPROVING, SMALL OPEN AREA TO LEFT UPPER ARM CLEANSED AND MEPILEX APPLIED, HOURLY ROUNDING COMPLETED, ASSESSMENT COMPLETE BESSY CONTINUE TO MONITOR.
[2018-02-20 19:00] VITALS: BP 129/74
--- NOTE | 2018-02-20 22:16 | NUR ---
ASSUMED CARE AT 1930. PATIENT RESTING IN BED. TAKES PILLS WHOLE WITH WATER. VOIDS PER URINAL, NURSING EMPTIES. ENCOURAGED REMOVAL OF JEANS TO ALLOW MORE AIR TO BUTTOCKS (PINK FROM PREVIOUS IRRITATION FROM HISTORY OF DIARRHEA) AND HE PUT ON GOWN KEEPING UNDERWEAR ON. MOISTURE BARRIER APPLIED. MEDICATED FOR PAIN AT HS. SEE DEC. LT SHOULDER MIPILEX C/D/I, NO DRAINAGE NOTED. HOURLY ROUNDS CONTINUE. BED ALARM ON. CALL LITE IN REACH.
--- NOTE | 2018-02-21 06:14 | NUR ---
SLEPT OFF AND ON THROUGH NIGHT. KEPT TV ON ALL NIGHT. LIKES TO LISTEN TO Share[employer] MUSIC ALSO. TURNS SELF. NO FURTHER C/O PAIN. HOURLY ROUNDS CONTINUE. CALL LITE IN REACH. ALARM ON FOR SAFETY. VOIDS PER URINAL.
[2018-02-21 08:07] VITALS: BP 99/68
--- NOTE | 2018-02-21 11:34 | NUR ---
SW met with pt to complete initial assesment, introduce self, and SW role. Pt known to CM from previous admissions. Pt lives at home alone and has been for about the last 6 months. Pt said that his sister continues to be supportive and that they get together to go shopping or out to eat together. Pt has a wc, 4 ww with a seat, canes, and standard RW. Pt goal to get stronger in rehab and be able to return home independently. SW to continue to follow to assist with safe dc planning.
--- NOTE | 2018-02-21 14:15 | NUR ---
ASSUMED CARE AT 0730. ALERT ORIENTED PLEASANT CCOPERATIVE. HX OF DEBILITY. TRANSFERS WITH SBA G BELT WALKER AND AMBULATES TO DR FOR MEALS AND TO BR ABLE TO DO HYGEINE AND CLOTHING ADJUSTMENTS. IN CONTACT ISOLATION HX OF MRSA. MEDICATED X 1 FOR C/O KNEE PAIN BEFORE THERAPIES. FEEDS SELF TAKES MEDS WHOLE WITHOUT DIFFICULTY. APPETITE GOOD PARTICIPATING IN THERAPIES. THROUGHOUT THE DAY. USES CALL LIGHT APPROPRIATELY FOR ASSIST BED CHAIR ALARM FOR PT. SAFETY.
--- NOTE | 2018-02-21 20:15 | NUR ---
SITTING UP IN BED WATCHING TV. DECLINED OFFER OF A SNACK. CALL LIGHT AND URINAL WITHIN REACH. STATES PAIN IN KNEES A "6". STATES ABLE TO WAIT FOR A HOUR WHEN NEXT DOSE OF VICODIN DUE.
[2018-02-21 21:22] VITALS: BP 122/80
--- NOTE | 2018-02-22 05:49 | NUR ---
VICODIN GIVEN AT 2112 FOR C/O PAIN IN KNEES WITH GOOD RELIEF. NO FURTHER C/O PAIN. RESTED QUIETLY. USED URINAL X 4 DURING THE NIGHT. HOURLY ROUNDING IN PROGRESS.
[2018-02-22 08:00] VITALS: BP 103/65
--- NOTE | 2018-02-22 17:00 | NUR ---
YUMIKO and Dr Reed met with pt to review team conference and to discuss team to reassess pt length of stay during team conference on next Wednesday. Pt in agreement with plan. YUMIKO called and spoke with pt sister Tonya to provide update; pt sister appreciative of update. SW to follow to assist with safe dc planning.
--- NOTE | 2018-02-22 17:03 | NUR ---
PATIENT GIVEN PRN VICODIN FOR KNEE/LEG PAIN THIS SHIFT, GOOD RELIEF NOTED. AMBULATING WITH STAFF WITH HOME WALKER, NO DIFFICULTY NOTED.
[2018-02-22 19:30] VITALS: BP 112/66
--- NOTE | 2018-02-23 05:54 | NUR ---
ASSUMED PATIET CARE AT 1900. PATIENT ALERT AND ORIENTED TIMES FOUR. ABLE TO USE URINAL INDEPENDENTLY IN BED. MINOR COMPLAINTS OF PAIN, CONTROLLED WITH ORAL MEDICATIONS. PATIENT RESTED THROUGH MOST OF THE NIGHT. USES CALL LIGHT APPROPRIATELY, UNDERSTANDS THAT HE NEEDS TO GET STRONGER IN ORDER TO GO HOME AND BE SUCCESSFUL. HOURLY ROUNDING AND STONE AND CONCRETE WASHER COMPLETED DOCUMENTED.
[2018-02-23 08:00] VITALS: BP 115/84
--- NOTE | 2018-02-23 09:40 | NUR ---
YUMIKO received call from Mickie with [employer] in [place] who explained that Medicaid providing program for pt to have CM follow in the community for support. YUMIKO called Mickie back who said that she had an employee check with pt yesterday and that they will continue to follow.
--- NOTE | 2018-02-23 15:54 | NUR ---
WOUND CARE NOTE: CONSULT RECEIVED FOR BUTTOCKS. PATIENT HAD A STAGE 2 PRESSURE ULCER DURING INPATIENT HOSPITAL STAY. THIS HAS NOW HEALED. NO PRESSURE ULCER PRESENT. SACRAL AREA IS RED AND RAW IN APPEARANCE. RECOMMEND BARRIER OINTMENT BID AND WAFFLE CUSHION WHEN IN CHAIR. EDUCATED PATIENT ON SHIFTING WEIGHT IN CHAIR AND USING THE WAFFLE CUSHION, COMMUNICATED UNDERSTANDING. WILL SIGN OFF AT THIS TIME, PLEASE RECONSULT IF NEEDED.
--- NOTE | 2018-02-23 17:18 | NUR ---
AM ASSESSMENT AND VITAL SIGNS COMPLETED DOCUMENTED. PT HAS BEEN PLEASANT AND COOPERATIVE, USES THE CALL LIGHT APPROPRIATELY. HOURLY ROUNDING AND FALL PRECAUTIONS IN PLACE. PRN PAIN MED GIVEN X2 FOR KNEE AND GENERALIZED PAIN.
[2018-02-23 20:40] VITALS: BP 113/75
--- NOTE | 2018-02-24 05:18 | NUR ---
Patient complain of pain in knees, pain relieved with pain medication.
[2018-02-24 08:10] VITALS: BP 125/74
[2018-02-24 20:22] VITALS: BP 114/71
--- NOTE | 2018-02-24 22:38 | NUR ---
ASSUMED CARE AT 1930. PATIENT S/P DEBILITY. ON ISOLATION FOR MRSA. RESTING IN BED AT CHANGE OF SHIFT WATCHING TV AND LISTENING TO RADIO. TURNS SELF IN BED EASILY. TAKES PILLS WHOLE WITH WATER. PINK AREA ON BUTTOCKS IMPROVING, MOISTURE BARRIER APPLIED. DSSG TO LT SHOULDER C/D/I. REFUSED COLACE AT HS. HOURLY ROUNDS CONTINUE. CALL LITE IN REACH. BED ALARM ON.
--- NOTE | 2018-02-25 06:39 | NUR ---
SLEPT MOST OF THE NIGHT. VOIDS PER URINAL. NO C/O PAIN. HOURLY ROUNDS CONTINUE. TURNS SELF. CALL LITE IN REACH. BED ALARM ON.
[2018-02-25 08:17] VITALS: BP 98/64
--- NOTE | 2018-02-25 18:12 | NUR ---
ASSUMMED CARE OF PT AT 0730, PT TRANSFERS WITH SBA GB WALKER, AMBULATES TO DININGROOM FOR MEALS, TAKING FOOD AND FLUIDS WELL, COMPLAINS OF PAIN IN BILATERAL THIGHS AND KNEES, MEDICATED PER ORDER, VOIDS PER URINAL AND TOILET, PARTICIPATED IN ALL THERAPIES, HOURLY ROUNDING COMPLETED, ASSESSMENT COMPLETE, WILL CONTINE TO MONITOR.
[2018-02-25 20:24] VITALS: BP 118/72
--- NOTE | 2018-02-25 21:07 | NUR ---
ASSUMED CARE OF PATIENT AT 1900 THE PATIENT IS ALERT AND ORIENTED SITTING UPRIGHT IN BED IN STREET CLOTHES PLAYING GAME ON PHONE O2 SAT MAINTAINED ON RA CONTINUES TO BE UP WITH STANDBY ASSIST OF 1 GAITBELT AND WALKER ROUTINE REGIMEN CONTINUES TO BE EFFECTIVE FOR SX MANAGEMENT SAFETY INTERVENTIONS CONTINUE BED LOWERED WHEELS LOCKED CALL LIGHT IN REACH SIDE RAILS UP X2 WILL CONTINUE TO MONITOR
--- NOTE | 2018-02-26 02:35 | NUR ---
ASSUMED PT CARE AT 0200, AGREE WITH PREVIOUS ASSESSMENT.
--- NOTE | 2018-02-26 05:40 | NUR ---
ASSUMED PT CARE AT 0200. PT STAYS UP LATE ON HIS CELL PHONE. PAIN MEDICATION ONCE THIS SHIFT FOR KNEE PAIN. CALL LIGHT AND FREQUENTLY USED ITEMS WITHIN REACH. HOURLY ROUNDING IN PROGRESS, WILL CONTINUE TO MONITOR.
[2018-02-26 08:01] VITALS: BP 113/69
--- NOTE | 2018-02-26 18:25 | NUR ---
AM ASSESSMENT AND VITAL SIGNS COMPLETED DOCUMENTED. ALL THERAPY SESSIONS COMPLETED. NO COMPLAINTS OF PAIN THIS SHIFT. FALL PRECAUTIONS AND HOURLY ROUNDING CONTINUE.
[2018-02-26 20:00] VITALS: BP 111/76
--- NOTE | 2018-02-27 05:23 | NUR ---
ASSESSMENT COMPLETE. PT SLEPT THROUGH THE NIGHT WITHOUT ANY CONCERNS. PRN PAIN MEDICATION GIVEN ONCE FOR KNEE PAIN. PT GIVEN MELATONIN AT HS TO SLEEP. PT IS ON ROOM AIR WITH ADEQUATE SATS. PT IS UP STANDBY ASSIST WITH WALKER. PT IS FALL RISK, BED ALARM ON. PT USES URINAL NEEDED. PT TURNS SELF IN BED DURING THE NIGHT. SEE ASSESSMENT AND VITALS FOR OTHER DETAILS. CALL LIGHT WITHIN REACH, WILL CONTINUE PLAN OF CARE
[2018-02-27 07:43] VITALS: BP 100/68
[2018-02-27 20:12] VITALS: BP 116/74
--- NOTE | 2018-02-27 22:03 | NUR ---
ASSUMED CARE AT 1930. PATIENT WITH DEBILITY. RESTING IN BED WATCHING TV. TAKES PILLS WHOLE WITH WATER. VOIDS KATERINA URINE PER URINAL, NURSING EMPTIES. TURNS SELF. REFUSES TO HAVE PICTURE OF BUTTOCKS TAKEN, (HX OF STOOL INCONTINENCE RELATED DERMATITIS) STATES IT FEELS BETTER. UP WITH SBA, GAIT BELT, ROLLING WALKER. NO C/O PAIN. HOURLY ROUNDS CONTINUE. BED ALARM ON. CALL LITE IN REACH.
--- NOTE | 2018-02-28 06:09 | NUR ---
SLEPT OFF AND ON. TURNS SELF. REFUSED ASSIST WITH TURNING AND REFUSED REMOVAL OF JEANS AT HS. WATCHED TV AND LISTNED TO MUSIC WHILE AWAKE. SNACKED ON JELLO. VOIDED PER URINAL. NO FURTHER C/O PAIN. HOURLY ROUNDS CONTINUE. BED ALARM ON. CALL LITE IN REACH.
[2018-02-28 08:09] VITALS: BP 106/66
--- NOTE | 2018-02-28 16:09 | NUR ---
ASSUMMED CARE OF PT AT 0730, PT ALERT AND ORIENTED, PT TRANSFERS WITH SBA GB AND WALKER, PT COMPLAINS OF PAIN IN BILATERAL KNEES, MEDICATED X 1 FOR PAIN, BUTTOCKS RED, BARRIER OINTMENT APPLIED, ISOLATION PRECAUTIONS MAINTAINED, PARTICIPATED IN ALL THERAPIES, HOURLY ROUNDING COMPLETED, ENCOURAGED TO LAY ON SIDES WHEN IN BED, WAFFLE CUSHION IN CHAIR, TO DININGROOM FOR LUNCH, ASSESSMENT COMPLETE, WILL CONTINUE TO MONITOR.
[2018-02-28 20:11] VITALS: BP 123/72
--- NOTE | 2018-02-28 22:53 | NUR ---
ASSUMED CARE AT 1930. PATIENT S/P DEBILITY. RESTING IN BED WATCHING TV. TURNS SELF. INSTRUCTED PATIENT THAT HE NEEDS TO LIE MORE ON HIS SIDE. BILAT BUTTOCKS STILL PINK, SKIN NOT OPEN. PATIENT DID REMOVE JEANS AND IS SLEEPING IN UNDERWEAR AND GOWN TO ALLOW MORE AIR TO AREA. MOISTURE BARRIER APPLIED AT HS. DENIES PAIN. VOIDS KATERINA URINE PER URINAL, NURSING EMPTIES. TAKES PILLS WHOLE WITH WATER. ON ISOLATION FOR MRSA. HOURLY ROUNDS CONTINUE. ALARMS FOR SAFETY. CALL LITE IN REACH.
--- NOTE | 2018-03-01 05:47 | NUR ---
SLEPT OFF AND ON. DRANK DECAF COFFEE UNTIL AROUND 0100. VOIDS PER URINAL. TURNS SELF EASILY. PATIENT VERBALIZED UNDERSTANDING OF NEED TO LIE ON SIDE, BUT OBSERVED ON HIS BACK AT TIMES THROUGH THE NIGHT. HOURLY ROUNDS CONTINUE. ALARMS FOR SAFETY. CALL LITE IN REACH.
[2018-03-01 08:00] VITALS: BP 99/67
--- NOTE | 2018-03-01 14:25 | NUR ---
SW spoke with pt about plan for reteam tomorrow with dc as well as pt is mod I to Independent with all tasks and no longer has any barriers to dc. Pt in agreement with plan. Pt sister to provide pt ride home. SW to continue to follow.
--- NOTE | 2018-03-01 16:43 | NUR ---
ASSUMMED CARE OF PT AT 0730, PT ALERT AND ORIENTED, PT MOD I IN ROOM, SBA IN HALLWAY, PT COMPLAINS OF BILATERALLY KNEE PAIN, MEDICATED PER ORDER, PT VOIDS PER TOILET, TAKING FOOD AND FLUIDS WELL, BUTTOCKS REDDENED, BARRIER OINTMENT APPLIED, PT ENCOURAGED TO LAY ON SIDES WHEN IN BED, PARTICIPATED IN ALL THERAPIES, HOURLY ROUNDING COMPLETED, ASSESSMENT COMPLETED, WILL CONTINUE TO MONITOR.
[2018-03-01 20:00] VITALS: BP 94/57
--- NOTE | 2018-03-01 21:00 | NUR ---
SITTING UP IN CHAIR WATCHING TV. MODIFIED INDEPENDENT IN ROOM WITH HIS WALKER FROM HOME. STATES PAIN IN KNEES AT A "6" BUT WILL CALL LATER WHEN WANTS TO TAKE ANOTHER VICODIN. PT SLIGHTLY APPREHENSIVE ABOUT BEING DISCHARGED TO HOME TOMORROW.
--- NOTE | 2018-03-02 05:46 | NUR ---
PAIN MED GIVEN X ONE WITH RELIEF. PATIENT DIDN'T GO TO BED UNTIL AFTER 0100. PT TO BE DISCHARGED TO HOME TODAY. REMAINS MODIFIED INDEPENDENT IN ROOM WITH WALKER. HOURLY ROUNDING IN PROGRESS.
[2018-03-02 07:39] VITALS: BP 114/63
[2018-03-02 13:50] VITALS: BP 114/63
[2018-03-02] MEDS ORDERED: HYDROCODONE-AP1 EAC6 PO (14:12)
[2018-03-02] MEDS ORDERED: AMBIEN 5 MG TABL5 M1 PO (14:13)
[2018-03-02] MEDS ORDERED: PROBIOTIC1 EAC1 PO (14:14)
[2018-03-02 14:19] VITALS: BP 114/63
--- NOTE | 2018-03-02 14:22 | NUR ---
YUMIKO and Dr Reed met with pt to review team conference summary; plan for pt to dc home today, Friday 03/02. HH RN services to follow is recommended. YUMIKO spoke with pt about services; pt preference for [facility]. YUMIKO called and spoke with Mj at [facility] [phone] who accepted referral and YUMIKO faxed dc orders and med list to [phone]. Pt sister to provide pt ride home.
--- NOTE | 2018-03-02 17:36 | NUR ---
PATIENT DISCHARGE TO HOME, ALL D/C PAPERS REVIEWED WITH PATIENT, ALL QUESTIONS ANSWERED, PRESCRIPTIONS GIVEN TO PATIENT, PATIENT LEFT FLOOR WITH FAMILY AND STAFF VIA W/C TO CAR
--- NOTE | 2018-03-15 15:21 | H ---
[address] [address] HISTORY AND PHYSICAL Name: INDRA BEGUM LYLA Room: [address] IN M.R.#: [id number] Admission: 02/18/18 Attend Phys: Mickie Reed, Discharge: 03/02/18 Date of : 59 Report #: [id number] THIS REPORT FOR: //name// CC: Bharat Reed DATE OF SERVICE: 02/18/2018 REASON FOR ADMISSION: Debility, alterations in mobility and activities of daily living from previous level of function. HISTORY OF PRESENT ILLNESS: The patient is known from previous hospitalization as well as consultation. He was admitted acutely for urinary tract infection, debility, alterations in activities of daily living, protein calorie malnutrition and weakness. He has needs in physical and occupational therapy as well as cognitive deficiencies and memory problem solving and expression. His previous level of function was modified independent to independent with activities of daily living. His current level of function is minimum to moderate assistance depending on therapy, activity and time of day. Estimated length of stay is 10-12 days with discharge disposition to the home setting where he does live alone, but does have a supportive sister who is out of town, but can provide assistance as needed. He does have multiple medical comorbidities. PAST MEDICAL AND SURGICAL HISTORY: Unchanged from previous consultation. SOCIAL AND FAMILY HISTORY: Unchanged from previous consultation. REVIEW OF SYSTEMS: A 14-point review of systems is done and is negative except as mentioned in the HPI, specifically no fever, chest pain, shortness of breath, abdominal pain or distention. PHYSICAL EXAMINATION: GENERAL: Alert, oriented, in no apparent distress. VITAL SIGNS: Reviewed and are stable. HEENT: Atraumatic, normocephalic. Pupils equal, round, reactive. ABDOMEN: Soft, nontender, nondistended. NEUROLOGIC: Cranial nerves 2 through 12 are grossly intact. No focal neuro deficits, 5/5 strength in bilateral upper and lower extremities. SKIN: Warm and dry. No rashes or lesions noted. ASSESSMENT: 1. Recent urinary tract infection. 2. Alterations in activities of daily living including mobility. 3. [place] [address] HISTORY AND PHYSICAL Name: INDRA BEGUM LYLA Room: [address] IN .R.#: [id number] Admission: 02/18/18 Attend Phys: Mickie Reed DO Discharge: 03/02/18 Date of : 59 Report #: [id number] PLAN: 1. Admission to inpatient rehabilitation to facilitate safe discharge home. 2. PT, OT, speech, language, case management, nursing to make evaluations and recommendations. 3. Plan of care is pending. We will team him weekly. <ELECTRONICALLY SIGNED> By: Mickie Reed DO 03/15/18 1521 1516 1536Kelcarlos Reed DO /nt
--- NOTE | 2018-03-15 15:21 | PLAN ---
[address] [address] REHAB UNIT PLAN OF CARE Name: INDRA BEGUM LYLA Room: [address] IN .R.#: [id number] Admission: 02/18/18 Attend Phys: Mickie Reed DO Discharge: 03/02/18 Date of : 59 Report #: [id number] THIS REPORT FOR: //name// CC: Bharat Reed DATE OF SERVICE: 02/19/2018 OVERALL PLAN OF CARE The patient is admitted with debility, alterations in activities of daily living and mobility as well as acute UTI and weakness. He is known to this service from previous admission. MEDICAL PROGNOSIS: Fair. REHABILITATION PROGNOSIS: Fair. Estimated length of stay is 7-10 days with discharge disposition to the home setting. Physical therapy will see the patient 60-90 minutes per day, 5 days per week, working on upper and lower body strength, balance, coordination, navigation. Occupational therapy will work with the patient 60-90 minutes per day, 5 days per week, working on upper and lower body strength, balance, coordination, navigation, bathing, dressing and toileting. Speech and language pathology will work with the patient 30-90 minutes per day, 5 days per week, working on expression, memory, problem solving. This is an overall plan of care, may change from time to time. We will team him weekly and make changes to plan of care as needed. <ELECTRONICALLY SIGNED> By: Mickie Reed DO 03/15/18 1521 1518 1842Kelly Tsering Reed DO /nt
--- NOTE | 2018-03-15 15:21 | D ---
[address] [address] DISCHARGE SUMMARY Name: INDRA BEGUM LYLA Room: [address] IN M.R.#: [id number] Admission: 02/18/18 Attend Phys: Mickie Reed DO Discharge: 03/02/18 Date of : 59 Report #: [id number] THIS REPORT FOR: //name// CC: Bharat Reed DISCHARGE DIAGNOSES: Debility, alterations in mobility and activities of daily living with recent infection. DISCHARGE DISPOSITION: To home in modified independent to independent level of function. He will follow with primary care physician within 1 week. The patient did progress well during his therapy while on inpatient rehabilitation and is being discharged in a modified independent to independent level of care with home health nursing initially to start. MEDICATIONS: Reviewed and reconciled by myself and are available in the MAR. DISCHARGE PHYSICAL EXAMINATION: GENERAL: Alert, oriented, no apparent distress. VITAL SIGNS: Reviewed and are stable. HEENT: Head atraumatic, normocephalic. Pupils equal, round, reactive. ABDOMEN: Soft, nontender, nondistended. NEUROLOGIC: Cranial nerves 2-12 are grossly intact with no focal neuro deficits, 5/5 strength in the bilateral upper and lower extremities. SKIN: Warm and dry, no rashes or lesions noted. <ELECTRONICALLY SIGNED> By: Mickie Reed DO 03/15/18 1521 1427 [id number] paris Huitron
== END 2018-03-02 14:43 | disposition home health service (06) | DRG 947 ==
LOC: M.REH 13:56
PROVIDERS: ADMIT Physical Medicine & Rehabilitation
DX: R53.81 Other malaise (principal); E43 Unspecified severe protein-calorie malnutrition; N39.0 Urinary tract infection, site not specified; F17.210 Nicotine dependence, cigarettes, uncomplicated; I10 Essential (primary) hypertension; J44.9 Chronic obstructive pulmonary disease, unspecified; F41.9 Anxiety disorder, unspecified; I48.91 Unspecified atrial fibrillation; K21.9 Gastro-esophageal reflux disease without esophagitis; K20.9 Esophagitis, unspecified; E87.6 Hypokalemia; K22.8 Other specified diseases of esophagus; K31.84 Gastroparesis; F32.9 Major depressive disorder, single episode, unspecified; M25.561 Pain in right knee; Z68.34 Body mass index [BMI] 34.0-34.9, adult; Z88.0 Allergy status to penicillin; Z89.422 Acquired absence of other left toe(s); Z89.9 Acquired absence of limb, unspecified; Z91.19 Patient's noncompliance with other medical treatment and regimen; Z79.899 Other long term (current) drug therapy

== ENCOUNTER 2018-03-08 12:19 | Emergency (ER) | payer MEDICAID ==
[~2018-03-08] VITALS: Ht 182.9 cm; Wt 61.2 kg
[2018-03-08 12:46] LABS: HEMATOCRIT 38.4 % (42.0-52.0); HEMOGLOBIN 13.3 gm/dL (14.0-18.0); MCH 33.8 pg (26.0-34.0); MCHC 34.6 g/dL (28.0-37.0); MCV 97.5 fL (80.0-100.0); MPV 7.2 fl. (7.2-11.1); NUCLEATED RBCS 0 /100WBC; PLATELET COUNT* 178 thou/uL (150-400); RBC 3.94 mil/uL (4.50-6.00); RDW-CV 14.5 % (10.5-14.5); WBC 7.6 thou/uL (4.0-11.0)
[2018-03-08 12:55] LABS: ANION GAP 7 mmol/L (7-16); BUN 14 mg/dL (7-18); CALCIUM 8.3 mg/dL (8.5-10.1); CHLORIDE 101 mmol/L (98-107); CO2 30 mmol/L (21-32); CREATININE 0.7 mg/dL (0.6-1.3); GLUCOSE 87 mg/dL (70-99); POTASSIUM 3.6 mmol/L (3.5-5.1); SODIUM 138 mmol/L (136-145)
[2018-03-08 12:56] LABS: APTT 29.5 Seconds (25.0-31.3); INR 1.1
[2018-03-08 13:01] LABS: ALBUMIN 3.4 g/dL (3.4-5.0); ALKALINE PHOSPHATASE 83 U/L (46-116); LIPASE 69 U/L (73-393); SGOT 22 U/L (15-37); SGPT 30 U/L (30-65); TOTAL BILIRUBIN 0.7 mg/dL (<0.1-1.0); TOTAL PROTEIN 6.8 g/dL (6.4-8.2); TROPONIN-I LEVEL <0.06 ng/mL (<0.06)
[2018-03-08 13:04] LABS: ABSOLUTE BASOPHILS 0.1 thou/uL (0.0-0.2); ABSOLUTE EOSINOPHILS 1.6 thou/uL (0.0-0.7); ABSOLUTE LYMPHOCYTES 1.5 thou/uL (0.8-5.3); ABSOLUTE MONOCYTES 0.1 thou/uL (0.0-1.2); ABSOLUTE NEUTROPHILS 4.3 thou/uL (1.6-8.1)
[2018-03-08 13:05] LABS: PLATELET ESTIMATE ADEQUATE
[2018-03-08] MEDS ORDERED: PHENERGAN 25 MG25 M1 PO (13:48)
[2018-03-08 13:54] LABS: URINE BILIRUBIN NEGATIVE (Negative); URINE BLOOD 2+ (Negative); URINE CLARITY CLEAR; URINE COLOR YELLOW; URINE GLUCOSE-RANDOM NEGATIVE (Negative); URINE KETONES NEGATIVE (Negative); URINE NITRITE-REFLEX NEGATIVE (Negative); URINE PROTEIN 1+ (Negative)
[2018-03-08 14:02] LABS: URINE LEUKOCYTES-REFLEX 2+ (Negative)
[2018-03-08 14:04] LABS: SQUAMOUS 0-3 Few /LPF (0-3); WBC CLUMPS Moderate (None Seen)
[2018-03-08] MEDS ORDERED: BACTRIM DS TAB1 EACH PO (14:06)
[2018-03-08 14:08] LABS: BACTERIA-REFLEX 1-9 Few /HPF (None Seen)
[2018-03-08 14:09] LABS: CASTS None Seen /LPF (None Seen); CRYSTALS None Seen /LPF (None Seen); MUCUS None Seen strn/LPF (None Seen)
[2018-03-08 14:17] VITALS: BP 130/81
--- NOTE | 2018-03-08 17:19 | EKG ---
[place] [address] ELECTROCARDIOGRAM REPORT Name: INDRA BEGUM Room: [facility]#: [id number] Admission: 03/08/18 Attend Phys: Discharge: 03/08/18 Date of : 59 Report #: [id number] THIS REPORT FOR: //name// [facility] ED Test Date: 2018-03-08 Test Time: 12:41:53 Pat Name: INDRA BEGUM Department: Room: Gender: M Hog Room Supervisor: Todd GROVE : 1955 Requested By: Taryn Atkins Order Number: [id number] MD: Kashmir Bennett Measurements Intervals [place] Rate: 62 P: 45 AL: 188 QRS: -57 QRSD: 92 T: 51 QT: 425 QTc: 432 Interpretive Statements Sinus rhythm Left anterior fascicular block Low voltage, precordial leads RSR' in V1 or V2, right VCD or RVH Compared to ECG 02/14/2018 00:51:15 Low QRS voltage now present RSR' in V1 or V2 now present Atrial premature complex(es) no longer present Electronically Signed On 03-08-2018 17:19:10 CDT by Kashmir Bennett [email or web address] <ELECTRONICALLY SIGNED> By: Kashmir Bennett MD, [facility] 03/08/18 1719 1241 1241 Kashmir Bennett MD, [facility] /EPI
== END 2018-03-08 14:24 | disposition home or self-care (01) ==
LOC: M.ERS 12:19
PROVIDERS: Personal Emergency Response Attendant
DX: N39.0 Urinary tract infection, site not specified (principal); R11.2 Nausea with vomiting, unspecified; I10 Essential (primary) hypertension; I48.91 Unspecified atrial fibrillation; J44.9 Chronic obstructive pulmonary disease, unspecified; F41.9 Anxiety disorder, unspecified; F17.210 Nicotine dependence, cigarettes, uncomplicated; Z86.14 Personal history of Methicillin resistant Staphylococcus aureus infection; Z88.0 Allergy status to penicillin

== ENCOUNTER 2018-05-15 00:16 | Inpatient (IN) | payer MEDICAID ==
[2018-05-15] VITALS (23 sets, daily range): BP systolic 59–138; BP diastolic 32–101
[~2018-05-15] VITALS: Ht 182.9 cm; Wt 59.0 kg
[2018-05-15 00:43] LABS: ABSOLUTE BASOPHILS 0.1 thou/uL (0.0-0.2); ABSOLUTE EOSINOPHILS 0.1 thou/uL (0.0-0.7); ABSOLUTE LYMPHOCYTES 1.3 thou/uL (0.8-5.3); ABSOLUTE MONOCYTES 0.5 thou/uL (0.0-1.2); ABSOLUTE NEUTROPHILS 5.9 thou/uL (1.6-8.1); EOSINOPHILS 0.9 %; HEMATOCRIT 43.3 % (42.0-52.0); HEMOGLOBIN 14.7 gm/dL (14.0-18.0); LYMPHOCYTES 16.9 %; MCH 33.7 pg (26.0-34.0); MCHC 33.9 g/dL (28.0-37.0); MCV 99.3 fL (80.0-100.0); MONOCYTES 5.9 %; MPV 6.9 fl. (7.2-11.1); NUCLEATED RBCS 0 /100WBC; PLATELET COUNT* 259 thou/uL (150-400); POLYS 75.3 %; RBC 4.36 mil/uL (4.50-6.00); RDW-CV 15.2 % (10.5-14.5); WBC 7.9 thou/uL (4.0-11.0)
[2018-05-15 00:49] LABS: CALCIUM 8.8 mg/dL (8.5-10.1); CREATININE 0.9 mg/dL (0.6-1.3); POTASSIUM 4.4 mmol/L (3.5-5.1)
[2018-05-15 00:50] LABS: PROTIME 9.5 Seconds (9.20-11.50)
[2018-05-15 00:58] LABS: ALBUMIN 3.9 g/dL (3.4-5.0); TOTAL BILIRUBIN 0.5 mg/dL (<0.1-1.0); TOTAL PROTEIN 7.7 g/dL (6.4-8.2)
[2018-05-15] MEDS ORDERED: ACID CONTROL150 MG (01:01)
[2018-05-15 01:02] LABS: URINE BILIRUBIN NEGATIVE (Negative); URINE BLOOD 3+ (Negative); URINE CLARITY CLEAR; URINE COLOR YELLOW; URINE GLUCOSE-RANDOM NEGATIVE (Negative); URINE KETONES TRACE (Negative); URINE LEUKOCYTES-REFLEX NEGATIVE (Negative); URINE NITRITE-REFLEX NEGATIVE (Negative); URINE PROTEIN NEGATIVE (Negative); URINE UROBILINOGEN 0.2 E.U./dl (0.2-1.0)
[2018-05-15 01:11] LABS: FINE GRANULAR CASTS 0-3 Few /LPF (None Seen); HYALINE CASTS 0-3 Few /LPF (None Seen); MUCUS 4-6 Moderate strn/LPF (None Seen); SQUAMOUS 0-3 Few /LPF (0-3); URINE WBC-REFLEX 6-15 Few /HPF (0-5); WBC CLUMPS Few (None Seen)
[2018-05-15 01:12] LABS: AMORPHOUS URATES Moderate /LPF (None Seen)
[2018-05-15] MEDS ORDERED: CELEXA10 MG PO (05:34)
[2018-05-15 05:37] LABS: AMP/METHAMP Negative (Negative); BARBITURATES Negative (Negative); BENZODIAZEPINES Negative (Negative); COCAINE Negative (Negative); METHADONE Negative (Negative); OPIATES POSITIVE (Negative); PCP Negative (Negative); THC Negative (Negative)
--- NOTE | 2018-05-15 07:19 | NUR ---
RECEIVED REPORT FROM ER NURSE COCO,RN, AT 0220. PT ARRIVED TO ROOM VIA CART AT 0243. PT AAOX3, DENIES PAIN, PT PLACED ON MONITORS, TRACING SINUS TACHYCARDIA LOW 100'S. Q2H REPOSITIONING COMPLETED, PATIENT SCORE 0 ON CIWA PROTOCOL. VOICES NO CONCERNS. CALL LIGHT WITHIN REACH. HIGH FALL PRECAUTIONS IN PLACE. SPOKE WITH DR. ZAMARRIPA-UROLOGY- AT 0710. NO NEW ORDERS AT THIS TIME. PENDING UA CULTURE.
[2018-05-15 07:39] LABS: CREATININE 0.7 mg/dL (0.6-1.3); MAGNESIUM 2.2 mg/dL (1.8-2.4); PHOSPHORUS* 2.1 mg/dL (2.5-4.9); POTASSIUM 3.9 mmol/L (3.5-5.1)
[2018-05-15 12:05] LABS: CALCIUM 7.4 mg/dL (8.5-10.1); CREATININE 0.7 mg/dL (0.6-1.3); POTASSIUM 3.9 mmol/L (3.5-5.1)
--- NOTE | 2018-05-15 12:42 | EKG ---
[place] [address] ELECTROCARDIOGRAM REPORT Name: INDRA BEGUM LYLA Room: [address] ADM IN .R.#: [id number] Admission: 05/15/18 Attend Phys: Merly Dunn MD Discharge: Date of : 59 Report #: [id number] THIS REPORT FOR: //name// [facility] ED Test Date: 2018-05-15 Test Time: 00:37:12 Pat Name: INDRA BEGUM Department: Room: [facility] Gender: M [employer] Fab[employer]ator: ADAM : 1955 Requested By: Adriana Evans Order Number: [id number] MD: Farooq Rodriguez Measurements Intervals [place] Rate: 107 P: 69 AR: 163 QRS: 267 QRSD: 87 T: 73 QT: 326 QTc: 435 Interpretive Statements Sinus tachycardia with PVCs Borderline low voltage, extremity leads Abnormal R-wave progression, late transition Inferior infarct, old, possible Compared to ECG 03/08/2018 12:41:53 Ventricular premature complex(es) now present ST (T wave) deviation now present Myocardial infarct finding now present Sinus rhythm no longer present Left anterior fascicular block no longer present Electronically Signed On 05-15-2018 12:42:01 CDT by Farooq Rodriguez [email or web address] <ELECTRONICALLY SIGNED> By: Farooq Rodriguez MD, [facility] 05/15/18 1242 0037 Farooq Rodriguez MD, [facility] /EPI
--- NOTE | 2018-05-15 17:48 | NUR ---
PATIENT PROGRESSING TOWARDS GOALS. DROWSY MOST OF SHIFT R/T ATIVAN ADMINISTRATION. AFTERNOON DOSE HELD. HIGHEST CIWA NOTED TO BE 4 THIS SHIFT FOR MODERATE TREMORS. NO COMPLAINTS OF HEADACHE, NAUSEA, VOMITING, HALLUCINATIONS. MAGNESIUM REPLACEMENT PER EMAR, RECHECK WNL. PATIENT TOLERATED CLEAR AND FULL LIQUID DIETS THIS SHIFT, ADVANCED TO REGULAR DIET FOR BREAKFAST TOMORROW. PATIENT REPORTS POOR APPETITE AT HOME, BUT ATE 100% OF LUNCH AND DINNER WITH LITTLE ASSISTANCE. DIETARY CONSULT PLACED. RAQUEL WNL. T-MAX 100.0. PATIENT COMPLAINTS OF GENERAL BODY ACHES. Q2H TURNS RELIEVE DISCOMFORT. PATIENT DENIES CONCERNS ABOUT CAREPLAN AT THIS TIME. STATES "IM JUST GLAD IM HERE".
[2018-05-16] VITALS (12 sets, daily range): BP systolic 105–138; BP diastolic 62–85
--- NOTE | 2018-05-16 03:16 | NUR ---
PT RESTED WELL THIS SHIFT, VSS, AFEBRILE, CIWA SCORE LESS THAN 5 THIS SHIFT. VOICED NO CONCERNS. HIGH FALL PRECAUTIONS IN PLACE. Q2H REPOSITIONING COMPLETED, CALL LIGHT WITHIN REACH.
[2018-05-16 04:24] LABS: HEMATOCRIT 32.4 % (42.0-52.0); MCH 33.9 pg (26.0-34.0); MCHC 34.1 g/dL (28.0-37.0); MCV 99.5 fL (80.0-100.0); MPV 7.3 fl. (7.2-11.1); RBC 3.25 mil/uL (4.50-6.00); RDW-CV 14.8 % (10.5-14.5); WBC 6.5 thou/uL (4.0-11.0)
[2018-05-16 04:34] LABS: ALBUMIN 2.2 g/dL (3.4-5.0); CALCIUM 7.4 mg/dL (8.5-10.1); CREATININE 0.6 mg/dL (0.6-1.3); MAGNESIUM 1.5 mg/dL (1.8-2.4); PHOSPHORUS* 2.1 mg/dL (2.5-4.9); POTASSIUM 3.2 mmol/L (3.5-5.1); TOTAL BILIRUBIN 0.5 mg/dL (<0.1-1.0); TOTAL PROTEIN 4.9 g/dL (6.4-8.2)
[2018-05-16 12:18] LABS: MAGNESIUM 2.1 mg/dL (1.8-2.4); POTASSIUM 3.9 mmol/L (3.5-5.1)
--- NOTE | 2018-05-16 14:06 | NUR ---
PATIENT TRANSFERED TO ROOM 202 AT 1355 BY WHEELCHAIR WITH RN.
--- NOTE | 2018-05-16 20:00 | NUR ---
RECEIVED REPORT AND ASSUMED CARE OF PT, ASSESSMENT COMPLETED. PT ASKING FOR ATIVAN, ANXIOUS AND HAVING TREMORS OF HANDS. DOZING AT TIMES. CWAL 4, WILL GIVE PO ATIVAN. TELEMETRY ON SHOWING SR. ENCOURAGED PT TO TURN FROM SIDE TO SIDE DUE TO RED BUTTOCKS AND WILL ASSIST. ENCOURAGED TO COUGH AND DEEP BREATH BUT DOES SO POORLY. WILL CONT TO MONITOR AND ASSIST NEEDED.
[2018-05-17] VITALS: BP 133/85
[2018-05-17 04:00] VITALS: BP 135/83
[2018-05-17 05:19] LABS: CALCIUM 8.2 mg/dL (8.5-10.1); CREATININE 0.5 mg/dL (0.6-1.3); MAGNESIUM 1.5 mg/dL (1.8-2.4); PHOSPHORUS* 2.6 mg/dL (2.5-4.9); POTASSIUM 3.9 mmol/L (3.5-5.1)
--- NOTE | 2018-05-17 06:48 | NUR ---
SLEPT FAIRLY WELL LAST NIGHT. THIS AM C/O GENERALIZED JOINT PAIN, PO MED AND SCHEDULED ATIVAN GIVEN. ASKING FOR ONE TIME MORPHINE BUT EXPLAINED NEEDED TO SEE HOW THIS WORKS FOR HIM. NO CHANGE IN ASSESSMENT. CONT TO BE ANXIOUS. TELEMETRY SHOWING SR. ACHIEVED HS GOALS OF REST AND SAFETY. HOURLY ROUNDING OBSERVED.
[2018-05-17 08:16] VITALS: BP 122/72
--- NOTE | 2018-05-17 11:22 | NUR ---
WOUND CARE NOTE: CONSULT RECEIVED FOR WOUND ON BUTTOCKS. PATIENT PRESENTS WITH WHAT APPEARS TO BE DERMATITIS TO BILATERAL BUTTOCKS, SACRUM, COCCYX, GROIN. AREA APPEARS TO BE HEALING. DID NOT OBSERVE ANY OPEN WOUNDS. RECOMMEND LIMIT LAYERS OF LINEN UNDER PATIENT NO BRIEFS BARRIER OINTMENT BID AND PRN SIDE TO SIDE TURNING WILL SIGN OFF AT THIS TIME, PLEASE RECONSULT IF NEEDED
[2018-05-17 11:59] VITALS: BP 138/81
--- NOTE | 2018-05-17 13:02 | NUR ---
Pt is A&O. Resides at home alone. States that he has been doing pretty good at home. Pt uses a walker or cane for mobility. Hx of inpt rehab. Supportive sister that is involved in POC. Pt's goal is to return home at [place]. Following
[2018-05-17 15:35] VITALS: BP 106/76
--- NOTE | 2018-05-17 17:04 | NUR ---
ASSUMED CARE OF PATIENT AFTER REPORT THIS MORNING. PATIENT AWAKE, ALERT, AND ORIENTED APPROPRIATELY. PHYSICAL ASSESSMENT COMPLETED AND CHARTED. COMPLAINED OF PAIN AND ANXIETY THIS SHIFT. GIVEN SCHEDULED AND PRN MEDICATIONS, SEE EMAR FOR DOCUMENTATION. VITAL SIGNS STABLE. OXYGEN SATURATION WITHIN NORMAL LIMITS ON ROOM AIR. PATIENT TRANSFERS AND AMBULATES WITH ASSISTANCE FROM STAFF. USES CALL LIGHT APPROPRIATELY. SEEN BY WOUND CARE NURSE TODAY RE: REDNESS TO PATIENT'S BOTTOM AND SIGNED OFF CASE. DENIES NEEDS AT THIS TIME. CALL LIGHT WITHIN REACH. NURSING WILL CONTINUE TO MONITOR.
[2018-05-17 20:14] VITALS: BP 139/87
[2018-05-18] VITALS: BP 119/79
--- NOTE | 2018-05-18 03:13 | NUR ---
ASSUMED CARE OF PT AT 1900. PT IS ALERT AND ORIENTED. VSS. PERRLA. NO COMPLAINTS OF PAIN. PT HAS OAKES IN PLACE WITH DARK YELLOW URINE. PT IS IN SINUS RYTHM ON THE TELEMETRY. PT IS RESTING COMFORTBLY IN BED. RESPIRATIONS ARE EVEN AND NONLABORED. WILL CONTINUE TO MONITOR PT.
[2018-05-18 04:00] VITALS: BP 130/84
[2018-05-18 05:08] LABS: HEMATOCRIT 32.1 % (42.0-52.0); HEMOGLOBIN 10.9 gm/dL (14.0-18.0); MCH 33.8 pg (26.0-34.0); MCV 99.2 fL (80.0-100.0); MPV 8.3 fl. (7.2-11.1); RBC 3.24 mil/uL (4.50-6.00); WBC 6.8 thou/uL (4.0-11.0)
[2018-05-18 05:23] LABS: CALCIUM 8.3 mg/dL (8.5-10.1); CREATININE 0.6 mg/dL (0.6-1.3); MAGNESIUM 1.4 mg/dL (1.8-2.4); PHOSPHORUS* 3.5 mg/dL (2.5-4.9); POTASSIUM 4.2 mmol/L (3.5-5.1)
[2018-05-18 08:25] VITALS: BP 137/93
[2018-05-18 11:00] VITALS: BP 125/75
[2018-05-18 16:00] VITALS: BP 129/72
--- NOTE | 2018-05-18 16:52 | NUR ---
RECEIVED CONSULT FOR POSSIBLE REHAB ADMISSION. CONSULT HAS BEEN ACKNOWLEDGED BY REHABILITATION CONSTRUCTION SPECIALIST AND DR. ZACARIAS. PT ADMITTED AFTER A FALL HITTING HIS HEAD. FOUND TO HAVE MULTIPLE CHRONICE SMALL SUBDURAL HEMATOMAS AND SEPSIS FROM UTI. PT IS DEBILITATED AND MAY BENEFIT FROM SHORT ACUTE REHAB STAY FOR STRENGTHENING AND MEDICAL MANAGEMENT. PTs PLOF WAS MOD I/I. WILL NEED TO OBTAIN INSURANCE AUTHORIZATION. WILL PLAN TO ADMIT ONCE MEDICALLY STABLE AND IF INSURANCE APPROVES. NOTIFIED [facility] OF PLAN. THANK YOU FOR THIS CONSULT.
--- NOTE | 2018-05-18 17:36 | NUR ---
I have reviewed the documentation by Angelica Erazo OTR limited permit from 05/18/18 to 05/18/18 and I concur with it. BETZY PERKINS
--- NOTE | 2018-05-18 18:29 | NUR ---
ASSUMED CARE OF PATIENT AFTER REPORT THIS MORNING. PATIENT AWAKE, ALERT, AND ORIENTED APPROPRIATELY. PHYSICAL ASSESSMENT COMPLETED AND CHARTED. COMPLAINED OF PAIN. GIVEN PRN AND SCHEDULED MEDICATIONS, SEE EMAR FOR DOCUMENTATION. VITAL SIGNS STABLE. OXYGEN SATURATION WITHIN NORMAL LIMITS ON ROOM AIR. PATIENT TRANSFERS AND AMBULATES WITH ASSISTANCE FROM STAFF. USES CALL LIGHT APPROPRIATELY. DENIES NEEDS AT THIS TIME. CALL LIGHT WITHIN REACH. NURSING WILL CONTINUE TO MONITOR.
--- NOTE | 2018-05-18 22:02 | NUR ---
ASSUMED CARE OF PT AT 1900. PT IS ALERT AND ORIENTED. VSS. PERRLA. NO COMPLAINTS OF PAIN. PT HAS A URINARY CATHETER IN PLACE. PT IS IN SINUS RYTHM ON THE TELEMETRY. PT CIWA SCORE IS 1. PT IS SLEEPING COMFORTABLY IN BED. RESPIRATIONS ARE EVEN AND NONLABORED. WILL CONTINUE TO MONITOR PT.
[2018-05-19] VITALS: BP 116/72
[2018-05-19 04:00] VITALS: BP 125/77
[2018-05-19 05:04] LABS: CALCIUM 8.9 mg/dL (8.5-10.1); CREATININE 0.7 mg/dL (0.6-1.3); MAGNESIUM 1.8 mg/dL (1.8-2.4); PHOSPHORUS* 3.4 mg/dL (2.5-4.9); POTASSIUM 4.2 mmol/L (3.5-5.1)
[2018-05-19 08:30] VITALS: BP 114/74
--- NOTE | 2018-05-19 09:24 | NUR ---
ASSUMEDPT. CARE AND RECEIVED REPORT AT 0730. PT A/OX4, VSS, MONITOR ON TRACING SR. PT. C/O LOWER ABD. ACHE/SPASM, DENIES OTHER PAIN. REPORTS FEELING WEAK THIS MORNING. UP TO CHAIR FOR BREAKFAST, BUT BACK TO BED IMMEDIATELY AFTER. OAKES NOTED TO DD, WITH CLEAR YELLOW URINE. PT. HAS BEEN INCONT. OF BM X 3 THIS MORNING, SUSPICIOUS FOR CDIFF, SAMPLE SENT. FULL ASSESSMENT COMPLETED, REFER TO CHARTING. CALL LIGHT IN REACH, FALL PRECAUTIONS IN PLACE. WILL CONTINUE WITH PLAN OF CARE.
[2018-05-19 12:04] VITALS: BP 108/67
--- NOTE | 2018-05-19 12:50 | NUR ---
PT. MADE MED/SURG, MONITOR REMOVED. REPORT GIVEN TO CAROLINA RANDOLPH. PT. TRANSFERED UP TO 315, ALL BELONGINGS ACCOUNTED FOR.
--- NOTE | 2018-05-19 15:40 | NUR ---
PATIENT CAME TO THE FLOOR TODAY FROM TELE, CAME VIA BED IN STABLE CONDITION. COMPLAINS OF PAIN IN HEAD AND GENERALIZED ACHES. VITAL SIGNS STABLE ON ROOM AIR. ORIENTED TO ROOM CALL LIGHT IS IN REACH, WILL CONTINUE TO MONIITOR.
--- NOTE | 2018-05-19 16:11 | NUR ---
CONTINUING TO FOLLOW PATIENT ALONG WITH DR. ZACARIAS. PATIENT WITH SEPSIS ON IV ANTIBIOTICS, WAITING ON CDIFF TEST RESULTS. WILL CONTINUE TO FOLLOW AND BRING TO ACUTE REHAB ONCE MEDICALLY STABLE AND INSURANCE AUTHORIZATION IS OBTAINED.
[2018-05-19 16:14] VITALS: BP 126/73
--- NOTE | 2018-05-19 18:24 | NUR ---
PATIENT HAS BEEN STABLE CONDITION SINCE COMING TO THE FLOOR TODAY FROM TELE. SOME COMPLAINTS OF A HEADACHE THAT IS CONTROLLED WITH ORAL PAIN MEDICATIONS. PATIENT IS ON ISOLOATION FOR POSSIBLE CDIFF. VITAL SIGNS HAVE BEEN STABLE ON ROOM AIR. CALL LIGHT IS IN REACH, WILL CONTINUE TO MONITOR.
[2018-05-19 20:35] VITALS: BP 107/73
[2018-05-20 05:06] LABS: CALCIUM 9.3 mg/dL (8.5-10.1); CREATININE 0.7 mg/dL (0.6-1.3); MAGNESIUM 1.5 mg/dL (1.8-2.4); PHOSPHORUS* 3.6 mg/dL (2.5-4.9); POTASSIUM 3.9 mmol/L (3.5-5.1)
--- NOTE | 2018-05-20 05:41 | NUR ---
PATIENT SLEPT MOST OF THE NIGHT. PATIENT WAS GIVEN PAIN MEDICINE ONCE WITH GOOD RELIEF. OAKES REMAINS TO DEPENDENT DRAIN. CDIFF IS STILL PENDING. PATIENT HAS HAD NO STOOLS THIS SHIFT. WILL CONTINUE TO MONITOR.
[2018-05-20 09:00] VITALS: BP 115/78
[2018-05-20] MEDS ORDERED: PRENATABS FA T1 EACH PO (12:13)
[2018-05-20] MEDS ORDERED: VITAMIN B-1100 M1 PO (12:14)
[2018-05-20] MEDS ORDERED: ASPERCREME1 EACH TOP (12:15)
[2018-05-20] MEDS ORDERED: TRAMADOL 50 MG50 MG PO (12:15)
[2018-05-20] MEDS ORDERED: FLORANEX TABLE1 EACH PO (12:16)
[2018-05-20 12:18] VITALS: BP 115/78
[2018-05-20 12:20] VITALS: BP 115/78
[2018-05-20 12:27] VITALS: BP 115/78
--- NOTE | 2018-05-20 14:21 | NUR ---
I have reviewed the documentation by KATERINA GARCIA OT LIMITED PERMIT from 05/20/18 to 05/20/18 and I concur with it. BETZY PERKINS
[2018-05-20 16:12] VITALS: BP 115/78
--- NOTE | 2018-05-20 16:13 | NUR ---
PATIENT HAS BEEN ALERT AND ORIENTED TODAY, PLEASANT. VITAL SIGNS STABLE ON ROOM AIR. SOME COMPLAINTS OF PAIN THAT IS CONTROLLED WITH ORAL PAIN MEDICATIONS. OAKES IS IN PLACE DRAINING WELL. PATIENT IS BEIND DISCHARGED TO REHAB, REPORT GIVEN TO OMID PHOTOS TAKEN.
[2018-05-20] MEDS ORDERED: PEPCID20 MG PO (17:33)
--- NOTE | 2018-05-30 11:41 | CON ---
[address] [address] CONSULTATION Name: KELINDRA LYLA Room: [address] IN M.R.#: [id number] Admission: 05/15/18 Attend Phys: Merly Dunn MD Discharge: 05/20/18 Date of : 59 Report #: [id number] THIS REPORT FOR: //name// CC: FAM physician/PCP Merly Dunn DATE OF SERVICE: 05/15/2018 REFERRING PHYSICIAN: Dr. Dunn. REASON FOR CONSULTATION: Urinary retention. HISTORY OF PRESENT ILLNESS: This is a 63-year-old male, admitted with multiple medical problems including alcohol withdrawal for which he is in the ICU. Urology is consulted regarding urinary retention. The patient has a Choi catheter in place and reportedly had over 3 liters in his bladder upon its placement. He reports a long history of BPH for which he has seen Dr. Nate Pettit. He reports he is on Flomax and finasteride chronically, but has not been taking his finasteride. He states that he developed slow stream, dribbling, hesitancy, straining and incomplete emptying over the past day or so. Denies dysuria, hematuria, fever, or flank pain. Denies any history of prostate surgery or prostate cancer. PAST MEDICAL HISTORY: As above. The patient also has a history of COPD, heart disease, hypertension. Also, reported history of vascular disease and subdural hematoma. ALLERGIES: INCLUDE PENICILLIN. MEDICATIONS: List is reviewed. Flomax and finasteride have been started. FAMILY HISTORY: He does not know of any family history of renal problems, prostate problems or prostate cancer. SOCIAL HISTORY: He smokes less than a pack of cigarettes a day. Has a history of alcoholism. REVIEW OF SYSTEMS: As per the history of present illness. The patient denies chest pain, shortness of breath or palpitations. He denies any other recent illness. Denies cough. He complained of some dizziness. PHYSICAL EXAMINATION: VITAL SIGNS: Temperature 37.1, pulse 101, respirations 18, blood pressure 103/54. Of note, urine output has been over 4 liters. GENERAL: This is a 63-year-old male, in no acute distress. He [place] [address] CONSULTATION Name: INDRA BEGUM LYLA Room: [address]#: [id number] Admission: 05/15/18 Attend Phys: Merly Dunn MD Discharge: 05/20/18 Date of : 59 Report #: [id number] HEENT: Normocephalic. Extraocular movements are intact. Oropharynx is clear. NECK: Supple. No JVD. CHEST: Chest wall is nontender. Respiratory effort and excursion are normal. CARDIAC: Rhythm is regular. Radial pulses are palpable. ABDOMEN: Soft, nontender and nondistended. Spine and costovertebral angles are nontender. Bladder is nonpalpable. EXTREMITIES: Warm. Moves all extremities. No peripheral edema. GENITOURINARY: Reveals normal skin of the penis and scrotum. Testes are nontender with no palpable masses. Urethral meatus is orthotopic. There is a Choi catheter in place draining grossly clear urine. RECTAL: Digital rectal exam reveals normal anus and sphincter tone. Prostate is moderately enlarged with no tenderness or nodularity. LABORATORY DATA: Include sodium 133, potassium 3.9, chloride 102, CO2 of 24, BUN 6, creatinine 0.7, glucose 103. Hemoglobin 14.7, white count 7.9, and platelet count 259,000. Urinalysis was obtained by catheterization as the patient was unable to void. Catheterized specimen reveals 11-20 red cells, 10-30 bacteria and 6-15 white cells. Culture on that as well as blood culture is pending. The patient has been started on vancomycin and Rocephin empirically. IMPRESSION: Benign prostatic hypertrophy with acute urinary retention, likely multifactorial and possibly to some degree related to his failure to take his benign prostatic hyperplasia medications as well as due to his acute illness. Agree with restarting Flomax and finasteride. Given the degree of urinary retention with over 3 liters in his bladder on catheterization, I would recommend leaving the Choi catheter in place for at least 7-10 days depending on his overall condition. He can certainly be seen as an outpatient for catheter management after recovery from his acute illness. Urology will sign off. Please call with concerns. <ELECTRONICALLY SIGNED> By: aRfa Mary MD 05/30/18 1141 [id number] Mary MD /nt
== END 2018-05-20 16:16 | DRG 872 ==
LOC: M.ERS 00:16 → M.ICU 02:23 → M.TBA-ER 02:23 → M.ICU 02:52 → M.2W 05-16 14:15 → M.3W 05-19 14:02
PROVIDERS: Emergency Medicine; ADMIT Internal Medicine
PROC: 0HQ0XZZ Repair Scalp Skin, External Approach (ICD-10-PCS; principal; 2018-05-15)
DX: A41.9 Sepsis, unspecified organism (principal); N39.0 Urinary tract infection, site not specified; E87.1 Hypo-osmolality and hyponatremia; E44.0 Moderate protein-calorie malnutrition; Z68.1 Body mass index [BMI] 19.9 or less, adult; F10.10 Alcohol abuse, uncomplicated; E86.0 Dehydration; N40.1 Benign prostatic hyperplasia with lower urinary tract symptoms; R33.8 Other retention of urine; S01.01XA Laceration without foreign body of scalp, initial encounter; M54.5 Low back pain; I10 Essential (primary) hypertension; I48.91 Unspecified atrial fibrillation; J44.9 Chronic obstructive pulmonary disease, unspecified; F17.210 Nicotine dependence, cigarettes, uncomplicated; W18.39XA Other fall on same level, initial encounter; F41.9 Anxiety disorder, unspecified; Z88.0 Allergy status to penicillin; Z79.899 Other long term (current) drug therapy; Z79.01 Long term (current) use of anticoagulants; Z89.422 Acquired absence of other left toe(s); Z91.81 History of falling; Y93.89 Activity, other specified; Y92.098 Other place in other non-institutional residence as the place of occurrence of the external cause; Y99.8 Other external cause status; Z79.2 Long term (current) use of antibiotics

== ENCOUNTER 2018-05-20 12:24 | Inpatient (IN) | payer MEDICAID ==
[~2018-05-20] VITALS: Ht 182.9 cm; Wt 58.1 kg
[~2018-05-20 12:24] MED LIST changes: +ACID CONTROL150 MG; +ASPERCREME1 EACH TOP; +CELEXA10 MG PO; +PRENATABS FA T1 EACH PO
[2018-05-20 17:10] VITALS: BP 124/75
[2018-05-20] MEDS ORDERED: PEPCID20 MG PO (17:33)
--- NOTE | 2018-05-20 18:24 | NUR ---
assummed care of pt on admit to unit at 1635, PT ALERT AND ORIENTED, DENIES PAIN, PT STATES HIS APETITE HAS BEEN POOR BUT HE IS TRYING TO INCREASE HIS FOOD INTAKE, OAKES PATENT AND DRAINING KATERINA URINE, BARRIER OINTMENT APPLIED TO BUTTOCKS, MEPILEX INTACT TO LEFT ELBOW, MALCOLM INTACT ON TOP HEAD, NO DRAINAGE NOTED, ENCOURAGED TO LAY ON SIDES BUT REFUSED, NO STOOL OUT SINCE ADMIT, ASSESSMENT COMPLETE, HOURLY ROUNDING COMPLETED, WILL CONTINUE TO MONITOR.
[2018-05-20 20:55] VITALS: BP 128/82
--- NOTE | 2018-05-21 01:14 | NUR ---
ASSUMED CARE @ 1927-05/20-WEDNESDAY.AWAKE IN BED ON SMART PHONE @ THIS TIME.HOB UP.OAKES CATHETER IN PLACE & DRAINING.BED ALARM PUT ON @ 1927.ISOLATION OBSERVED.HEELS OFF BED @ 2029.MOISTURE BARRIER CREAM APPLIED TO COCCYX @ 2199. SEE POSITION CHANGE CHARTING.ON HOURLY ROUNDS.
[2018-05-21 04:23] LABS: HEMATOCRIT 35.1 % (42.0-52.0); HEMOGLOBIN 11.7 gm/dL (14.0-18.0); MCH 33.2 pg (26.0-34.0); MCHC 33.5 g/dL (28.0-37.0); MCV 99.2 fL (80.0-100.0); MPV 7.7 fl. (7.2-11.1); RBC 3.53 mil/uL (4.50-6.00); RDW-CV 14.7 % (10.5-14.5)
[2018-05-21 04:51] LABS: CALCIUM 9.1 mg/dL (8.5-10.1); CREATININE 0.8 mg/dL (0.6-1.3); MAGNESIUM 1.6 mg/dL (1.8-2.4)
--- NOTE | 2018-05-21 05:13 | NUR ---
SLEEPING SINCE 2299.AWAKENED ONLY TO TURN & GOES BACK TO SLEEP.TOOK ONLY 50% LEMOM AUGUSTINE SODA HS SNACK.
[2018-05-21 07:30] VITALS: BP 103/60
--- NOTE | 2018-05-21 15:46 | NUR ---
ASSUMED CARE AT 0730. ALERT ORIENTED PLEASANT COOPERATIVE. HX OF DEBILITY. PAST HX OF COPD.. TRANSFERS WITH SBA G BELT AND WALKER. DOES C/O WEAKNESS UP IN CHAIR AT BEDSIDE EATING BREAKFAST.APPETITE GOOD TAKES MEDS WITHOUT DIFFICULTY. PARTICIPATING IN THERAPIES. HAD A LARGE BM HAS OAKES CATHETER FOR RETENTION. KATERINA URINE TO DD BAG. MEPILEX DRESSING TO L ELBOW COCCYX REDNESS TURNING EVERY 2 HRS WHEN IN BED. MEDICATED X 1 WITH VICODIN TAB FOR ARTHRITIC KNEE PAIN THIS AFTERNOON. FAMILY VISITED AND BROUGHT CLOTHES FOR PT. IN CONTACT ISOLATION FOR PAST HX MRSA 2 YRS. AGO.
--- NOTE | 2018-05-21 18:07 | NUR ---
PT. STATES HE HAS HAD BLADDER DISCOMFORT AND SOME BURNING HE HAS OAKES. STATED HE WAS ON PYRIDIUM FOR THIS ON ACUTE, HES TO HAVE OAKES 5 MORE DAYS WILL MONITOR AND CHECK WITH DR. SMITH HIMS. URINE DOESNT HAVE ANY ODOR KATERINA COLOR.
[2018-05-21 21:10] VITALS: BP 87/60
[2018-05-22 00:10] VITALS: BP 108/68
--- NOTE | 2018-05-22 00:30 | NUR ---
ASSUMED CARE @ -SAT.AWAKE IN BED ON HIS RIGHT SIDE.WATCHING TV.HOB UP.BED ALARM PUT ON @ 1914.ISOLATION OBSERVED.SUGGESTED TO CHANGE HIS THEO PANTS TO SOMETHING SOFTER & LOOSE.HEELS OFF BED @ 2109.TEMP @ 2099-.2 ORAL.ROOM WARM & MADE COOLER.BP @ /60.ASYMPTOMATIC.HS DOSE METOPROLOL HELD.OAKES IN PLACE & DRAINING.SLEEPING ALREADY @ -SUN.AWAKENED FOR RESP.TX.TEMP RE-CHECKED @ 0-98.9 ORAL.BP-108/68.SEE POSITION CHANGE CHARTING.ON HOURLY ROUNDS.
--- NOTE | 2018-05-22 05:18 | NUR ---
SLEPT LATE & SLEEPING SINCE -05/22-SUN.MOISTURE BARRIER CREAM APPLIED TO PINK BUTTOCKS @ 2109.TOOK PEANUT BUTTER CUPS CANDIES & LEMON SANTEE SIOUX SODA HS SNACKS.AWAKENED ONLY TO TURN @ NIGHT.GOES RIGHT BACK TO SLEEP.SEE POSITION CHANGE CHARTING.
[2018-05-22 07:45] VITALS: BP 132/74
--- NOTE | 2018-05-22 15:19 | NUR ---
ASSUMED CARE AT 0730. ALERT ORIENTED PLEASANT COOPERATIVE. HX OF DEBILITY AND HX OF COPD. TRANSFERS WITH SBA G BELT WALKER AND AMBULATED TO DR FOR LUNCH MEAL. OAKES PATENT WITH KATERINA URINE TO DD BAG. DENIES ANY BLADDER DISCOMFORT BUT DID REQUEST PRN PAIN MED FOR ARTHRITIC KNEE PAIN X 1. IN CONTACT ISOLATION FOR LONG PAST HX OF MRSA. TURNED EVERY 2 HRS IN BED AND WAS UP IN CHAIR AT LUNCH FEEDS SELF APPETITE GOOD TAKES MEDS WITHOUT DIFFICULTY. TO FOR MEALS.
[2018-05-22 20:45] VITALS: BP 121/71
--- NOTE | 2018-05-23 00:45 | NUR ---
ASSUMED CARE @ 1919-05/22-WEDNESDAY.AWAKE IN BED W/ HOB UP.ON HIS SMART PHONE. BED ALARM PUT ON @ 1919.ISOLATION OBSERVED.THEO PANTS CHANGED TO PJ PANTS @ HS.MOISTURE BARRIER CREAM APPLIED TO PINK BUTTOCKS @ 1944.WANTS LIGHT ON ALL NIGHT ABOVE HEAD OF BED.TEMP @ 5-99.1 ORAL.ROOM WARM & MADE COOLER. TEMP.RE-CHECKED @ 2210-98.4 ORAL.ON HOURLY ROUNDS.SEE POSITION CHANGE CHARTING Q EVEN HOURS.AWAKENED ONLY TO TURN.OAKES IN PLACE & PATENT.BLADDER SCAN ORDERED BY HIMS TO CHECK RESIDUAL.DONE @ 6-ZZOLRI-[id number]-21 ML ONLY.
[2018-05-23 02:44] LABS: URINE BILIRUBIN NEGATIVE (Negative); URINE BLOOD NEGATIVE (Negative); URINE CLARITY CLEAR; URINE COLOR YELLOW; URINE GLUCOSE-RANDOM NEGATIVE (Negative); URINE KETONES NEGATIVE (Negative); URINE LEUKOCYTES-REFLEX NEGATIVE (Negative); URINE NITRITE-REFLEX NEGATIVE (Negative); URINE PROTEIN NEGATIVE (Negative); URINE UROBILINOGEN 0.2 E.U./dl (0.2-1.0)
[2018-05-23 04:26] LABS: HEMATOCRIT 34.3 % (42.0-52.0); HEMOGLOBIN 11.6 gm/dL (14.0-18.0); MCH 33.5 pg (26.0-34.0); MCHC 33.7 g/dL (28.0-37.0); MCV 99.6 fL (80.0-100.0); MPV 7.9 fl. (7.2-11.1); NUCLEATED RBCS 0 /100WBC; PLATELET COUNT* 252 thou/uL (150-400); RBC 3.45 mil/uL (4.50-6.00); RDW-CV 14.6 % (10.5-14.5); WBC 5.3 thou/uL (4.0-11.0)
--- NOTE | 2018-05-23 05:33 | NUR ---
URINE FOR UA COLLECTED FROM OAKES @ 219 & SENT TO LAB.HEELS OFF BED @ 1999. AWAKENED BY LAB @ 319 FOR BLOOD DRAW & HAS REMAINED AWAKE SINCE THEN.SLEPT LATE @ 0000-05/23-WEDNESDAY.BRP X1 W/ ASSIST @ 1929-FOR LARGE BM.TOOK PEANUT BUTTER CUPS W/ SODA HS SNACKS.
[2018-05-23 05:46] LABS: ABSOLUTE EOSINOPHILS 0.7 thou/uL (0.0-0.7); ABSOLUTE LYMPHOCYTES 2.2 thou/uL (0.8-5.3); ABSOLUTE MONOCYTES 0.6 thou/uL (0.0-1.2); ABSOLUTE NEUTROPHILS 1.7 thou/uL (1.6-8.1); PLATELET ESTIMATE ADEQUATE
[2018-05-23 05:47] LABS: ANISOCYTOSIS 1+; POIKILOCYTOSIS 1+
[2018-05-23 07:50] VITALS: BP 115/79
--- NOTE | 2018-05-23 13:21 | NUR ---
ASSUMED CARE AT 0730. ALERT ORIENTED PLEASANT COOPERATIVE. HX OF DEBILITY AND COPD. RESTING ON RT. SIDE WHEN STAFF WENT IN TO GET PT. UP FOR BREAKFAST TO CHAIR AT BEDSIDE. APPETITE GOOD FEEDS SELF. TAKES MEDS WITHOUT DIFFICULTY. USES CALL LIGHT APPROPRIATELY. IN CONTACT ISOLATION FOR HX OF MRSA IN NARES. OAKES PATENT TO DD BAG WITH KATERINA URINE. PT. HAS REQUESTED LEG BAG AND IT WAS APPLIED THIS A.M. WILL REMOVE MALCOLM FROM HEAD INCSION TODAY. DR. RANDLE ROUNDED. PT. HAS PARTICIPATED IN THERAPIES THIS A.M. MEDICATED X 1 FOR C/O KNEE PAIN WITH SOME RELIEF STATED. PTS'S SISTER HERE AT LUNCH TIME.
--- NOTE | 2018-05-23 14:58 | NUR ---
SW met with pt to complete initial assessment, reintroduce self, and SW role on rehab unit. Pt lives at home alone and has support at times from his sister. Pt says that he is not sure a HH agency ever visited him but he said that [facility] checks on pt and he thinks maybe they could provide support as well. Pt has cane, rollator, lead software engineer and does not anticipate any other dc needs. SW to continue to follow to assist with safe dc planning.
[2018-05-23 19:45] VITALS: BP 128/80
--- NOTE | 2018-05-23 22:59 | NUR ---
ASSUMED CARE AT 1930. PATIENT RESTING IN BED. MOVES SELF WITHOUT DIFF. UP WITH SBA, GAIT BELT, WALKER, CUEING. REMOVED JEANS AT HS. LEG BAG SWITCHED TO LONG TUBE OAKES BAG FOR HS. TAKES PILLS WHOLE WITH WATER. NO C/O PAIN. REMAINS ON CONTACT ISOLATION. ABLE TO TURN SELF. HOURLY ROUNDS CONTINUE. BED ALARM ON. CALL LITE IN REACH.
--- NOTE | 2018-05-24 05:12 | NUR ---
SLEPT AFTER ABOUT 2200. TURNS SELF. OAKES DRAINING KATERINA URINE. HAD ONE LARGE BM PER TOILET. UP WITH SBA, GAIT BELT, WALKER. ABLE TO DO HYGIENE AND CLOTHING ADJUSTMENT. MOISTURE BARRIER APPLIED AFTER BM. NO C/O PAIN. HOURLY ROUNDS CONTINUE. BED ALARM ON. CALL LITE IN REACH.
--- NOTE | 2018-05-24 07:00 | NUR ---
PATIENT USED TO CALL LITE TO REPORT THAT HE WAS INCONTINENT OF STOOL. LINENS CHANGED, SHORTS CHANGED. AMB TO BR WITH GAIT BELT, WALKER. HE WAS ABLE TO DO MOST OF THE PERICARE AFTER BM, BUT THIS NURSE FINISHED AND APPLIED MOISTURE BARRIER. PATIENT ASSISTED WITH CHANGING OAKES BAG TO LEG BAG, ASSISTED HOLDING THE ENDS OF THE BAGS, THIS NURSE SWITCHED THE BAGS, PATIENT DID SOME OF THE BUTTONING ON THE STRAP BUT NURSE FINISHED. DISCUSSED CONSUMPTION OF REECES PIECES, BOTH FOR THE CHOCOLATE AND THE FATS CONTAINED IN THE SNACK. PATIENT STATES HE HAS A "GALL BLADDER" PROBLEM AND THAT THE PHYSICIANS DO NOT WANT TO PERFORM SURGERY. INSTRUCTED TO CUT BACK ON REECES PIECES CONSUMPTION TO SEE IF THE STOOL SITUATION IMPROVES. PATIENT VERBALIZED UNDERSTANDING.
[2018-05-24 08:56] VITALS: BP 118/78
--- NOTE | 2018-05-24 18:24 | NUR ---
PT HAS AMBULATED IN HALLS WITH GAITBELT,WALKER AND MIN ASSIST OF 1. PT HAS PARTICIPATED WITH THERAPIES. PT IS REMINDED TO CALL FOR ASSIST WITH TRANSFERRS. PRN FOR KNEE PAIN GIVNE X1 THIS AFTERNOON WITH GOOD EFFECT. PT REMINDED TO REPOSITION SELF OFF BUTTOX WHEN IN BED AND WAFFEL CUSHION IN CHAIR AT BEDSIDE. BARRIER CREAM APPLIED TO COCCYX. PT PROGRESSES TOWARDS GOALS AND HOURLY ROUNDING CONTINUES.
[2018-05-24 19:50] VITALS: BP 124/71
--- NOTE | 2018-05-24 21:10 | NUR ---
SITTING UP IN BED WATCHING TV. TOOK MEDICATIONS WHOLE WITH WATER. PAIN MEDICATION GIVEN FOR COMPLAINT OF ARTHRITIC PAIN IN KNEES. OAKES TO DEPENDENT DRAINAGE WITH CLEAR/YELLOW URINE.
--- NOTE | 2018-05-25 05:04 | NUR ---
RESTED QUIETLY. NO FURTHER COMPLAINT OF PAIN. RECEIVED SCHEDULED BREATHING TX'S. HOURLY ROUNDING IN PROGRESS.
[2018-05-25 08:11] VITALS: BP 118/72
--- NOTE | 2018-05-25 16:10 | NUR ---
SW met with pt to review team conference summary and plan for pt to remain on rehab unit one more week with team to reteam next Wednesday and for pt to dc home next Wednesday. Pt in agreement with plan. SW to continue to follow to assist with safe dc planning.
--- NOTE | 2018-05-25 17:18 | NUR ---
PT HAS PARTICIPATED WITH THERAPIES AND IS ALERT AND ORIENTATED. PT CALLS FOR ASSIST TO BATHROOM AND AMBULATES WITH WALKER,GAITBELT AND MIN ASSIST OF 1TO DINNINGROOM AND BACK.OAKES REMOVED THIS AM AT 0900 WITH PT ENCOURAGED TO DRINK FLUIDS FOR GOOD OUTPUT. BLADDER SCAN DONE AT 1710 WITH RESIDUAL AT 312ML. PT TO BE ST CATHED IF GREATER THAN 500 AND PT NOT ABLE TO VOID.PT CONTINUES TO PROGRESS TOWARDS GOALS AND HOURLY ROUNDING CONTINUES.
[2018-05-25 19:30] VITALS: BP 126/77
--- NOTE | 2018-05-25 23:20 | NUR ---
ASSUMED CARE AT 1930. PATIENT RESTING IN BED. UP TO TOILET TO HAVE BM AND ATTEMPT VOID. UNABLE TO VOID, BLADDER SCANNED 612. STRAIGHT CATHED WITH 550 KATERINA URINE RETURNED, NEEDS TO BE REMINDED NOT TO BEAR DOWN WHEN CATHETER IS BEING ADVANCED. CONTINUES TO CONSUME MANY REECES PEANUT BUTTER CUPS. ON ISOLATON FOR MRSA NARES. DENIES PAIN. HOURLY ROUNDS CONTINUE. BED ALARM ON. CALL LITE IN REACH.
[2018-05-26 04:31] LABS: HEMATOCRIT 35.7 % (42.0-52.0); MCH 33.4 pg (26.0-34.0); MCHC 33.7 g/dL (28.0-37.0); MCV 99.1 fL (80.0-100.0); MPV 7.7 fl. (7.2-11.1); RBC 3.6 mil/uL (4.50-6.00); RDW-CV 14.7 % (10.5-14.5); WBC 7.1 thou/uL (4.0-11.0)
[2018-05-26 05:02] LABS: ALBUMIN 3.2 g/dL (3.4-5.0); CALCIUM 8.5 mg/dL (8.5-10.1); CREATININE 0.8 mg/dL (0.6-1.3); POTASSIUM 4.6 mmol/L (3.5-5.1); TOTAL BILIRUBIN 0.2 mg/dL (<0.1-1.0); TOTAL PROTEIN 6.3 g/dL (6.4-8.2)
--- NOTE | 2018-05-26 06:23 | NUR ---
SLEPT MUCH OF THE NIGHT. AWOKE AROUND 0515 C/O NEEDING TO VOID AND UNABLE TO VOID PER URINAL. BLADDER SCANNED 921, STRAIGHT CATHED WITH 900 ML KATERINA URINE. STATED RELIEF. STATES HE WAS ON PROSCAR PREVIOUSLY WHEN "IN THE [facility]" BUT THE DOCTOR THERE TOOK HIM OFF OF IT, AND QUESTIONED IF HE NEEDED IT AGAIN. NO C/O PAIN. HOURLY ROUNDS CONTINUE. BED ALARM ON. CALL LITE IN REACH.
[2018-05-26 14:01] VITALS: BP 100/57; BP 119/71
--- NOTE | 2018-05-26 17:49 | NUR ---
ASSUMED CARE AT 0730 PATIENT ALERT/ORIENTED, PAIN MED GIVEN X1 THIS SHIFT FOR BACK PAIN, LIDODERM PATCH APPLIED TO LOWER BACK, UP WITH ASSIST OF ONE AND WALKER, PARTICIPATED IN ALL THERAPIES TODAY, TO DINING ROOM FOR MEALS, BED/CHAIR ALARMS IN PLACE, CALL LIGHT IN REACH, HOURLY ROUNDING COMPLETED. OAKES CATHETER PLACED DUE TO RETENTION PER DR HAILE. NEW BLADDER MED ORDERED AND DR RANDLE STATED WILL TRY TO DO VOIDING TRIAL ON WEDNESDAY. INSERTED 16FR CATHETER USING STERILE TECHNIQUE, IMMEDIATE RETURN OF CLEAR YELLOW URINE NOTED, STAT LOCK APPLIED TO LEG AND SECURED.
[2018-05-26 20:00] VITALS: BP 115/75
--- NOTE | 2018-05-27 05:18 | NUR ---
ASSUMED CARES AT 1920. ALERT AND ORIENTED. PLEASANT. DENIED NEED FOR PAIN MED. TAKES PILLS WHOLE WITHOUT ISSUES. PT ASSISTED WITH CHANGING OF LEG BAG TO LARGER OAKES BAG. OAKES DD YELLOW URINE. MIN ASSIST WITH GAIT BELT AND WALKER. UP TO BATHROOM X 2 FOR BM. BUTTOCKS/COCCYX REDNESS. BARRIER CREAM APPLIED. SLEPT WELL. CALL LIGHT IN REACH. BED ALARM ON.
[2018-05-27 07:30] VITALS: BP 127/84
--- NOTE | 2018-05-27 16:15 | NUR ---
ASSUMED CARE AT 0730. ALERT ORIENTED [facility] COOPERATIVE. HX OF DEBILITY COPD. TRANSFERS WITH SBA G BELT WALKER AMBULATES TO DR FOR MEALS. MEDICATED X 1 FOR C/O ANKLE PAIN WITH SOME RELIEF STATED. IN CONTACT ISOLATION FOR HX OF MRSA IN [facility] JUL 2017. USES CALL LIGHT FOR ASSISTANCE. BED CHAIR ALARM FOR PT. SAFETY. FEEDS SELF TAKES MEDS WITHOUT DIFFICULTY APPETITE GOOD. OAKES PATENT WITH YELLOW URINE TO DD BAG.
[2018-05-27 19:35] VITALS: BP 107/68
--- NOTE | 2018-05-27 19:35 | NUR ---
SITTING UP IN RECLINER WATCHING TV. COMPLAINING OF NEUROPATHY PAIN IN FEET. RECEIVED VICODIN AT DINNER TIME. HAS SCHEDULED HS NEURONTIN. OAKES TO DEPENDENT DRAINAGE WITH CLEAR/YELLOW URINE.
--- NOTE | 2018-05-28 06:20 | NUR ---
WENT TO BED AT ABOUT 2325. AMBULATES WITH SBA, GAITBELT, WALKER. HOURLY ROUNDING IN PROGRESS.
[2018-05-28 07:58] VITALS: BP 101/65
--- NOTE | 2018-05-28 17:46 | NUR ---
ASSUMED CARE AT 0730 PATIENT ALERT/ORIENTED, PAIN MEDS GIVEN X1 THIS SHIFT WITH GOOD RELIEF, UP WITH STANDBY ASSIST WITH WALKER/GAIT BELT, TO DINING ROOM FOR MEALS, BED/CHAIR ALARMS IN PLACE, CALL LIGHT IN REACH, HOURLY ROUNDING COMPLETED. PARTICIPATED IN ALL THERAPIES TODAY.
[2018-05-28 19:20] VITALS: BP 128/85
--- NOTE | 2018-05-28 21:00 | NUR ---
PATIENT SITTING UP ON SIDE OF BED. AMBULATED TO THE BATHROOM WITH SBA, GAITBELT, WALKER. PATIENT SWITCHED HIS LEG BAG TO THE BIG OAKES BAG WITH MINIMAL ASSIST. PAIN MEDICATION GIVEN FOR COMPLAINT OF PAIN IN HIS KNEES.
--- NOTE | 2018-05-29 05:55 | NUR ---
RESTED QUIETLY. NO FURTHER COMPLAINT OF PAIN. HOURLY ROUNDING IN PROGRESS.
[2018-05-29 08:10] VITALS: BP 123/78
--- NOTE | 2018-05-29 18:27 | NUR ---
ASSUMED CARE AT 0730 PATIENT ALERT/ORIENTED, UP WITH STANDBY AND GAIT BELT, PAIN REPORTED TO KNEES ONE PAIN MED GIVEN THIS SHIFT WITH GOOD RELIEF. TO DINING ROOM FOR MEALS. BED/CHAIR ALARMS IN PLACE, CALL LIGHT IN REACH, HOURLY ROUNDING COMPLETED.
[2018-05-29 19:30] VITALS: BP 116/72
--- NOTE | 2018-05-29 20:30 | NUR ---
SITTING UP IN BED AND PLAYING A GAME ON HIS CELL PHONE. PAIN MEDICATION GIVEN FOR COMPLAINT OF PAIN IN HIS KNEES AND RIGHT 2ND TOE. OAKES TO DEPENDENT DRAINAGE WITH CLEAR/YELLOW URINE. TOOK MEDICATION WHOLE WITH WATER.
--- NOTE | 2018-05-30 05:25 | NUR ---
RESTED QUIETLY. NO COMPLAINTS VOICED. HOURLY ROUNDING IN PROGRESS.
[2018-05-30 07:29] VITALS: BP 117/73
--- NOTE | 2018-05-30 14:22 | NUR ---
ASSUMED CARE AT 0730. ALERT ORIENTED PLEASANT COOPERATIVE. HX OF DEBILITY COPD. TRANSFERS WITH [facility]ALK[facility] AMBULATES TO DR FOR MEALS. MEDICATED X 1 FOR C/O PAIN KNEES THIS A.M. USES CALL LIGHT APPROPRIATELY FOR ASSIST. OAKES D/CD AT 0900 WITH 200 CCS K[place] URINE IN DD BAG. WILL RY VOIDING TRIAL TODAY. PARTICIPATING IN THERAPIES THROUGHOUT THE DAY. BUTTOCKS REMAIN PINK NO OPEN AREAS MOISTURE BARRIER APPLIED. IN CONTACT ISOLATION FOR HX OF MRSA IN NARES. NO SPONTANEOUS VOIDS YET AT 1430. FEEDS SELF AND TAKES MEDS WITHOUT DIFFICULTY.
--- NOTE | 2018-05-30 16:21 | NUR ---
PT. WAS BLADDER SCANNED FOR 227CCS AT 1545. STATES A MIN AMT. OF DISCOMFORT BUT NOT ENOUGH WILL MONITOR AGAIN LATER IF NO SPONTANEOUS VOID SOON. RT. SECOND TOE DRESSING CHANGED OPTIFOAM BETWEEN GREAT TOE AND 2ND TOE THEY RUB.
--- NOTE | 2018-05-30 18:35 | NUR ---
PT. VOIDED 50CCS [place] URINE BLADDER SCAN WAS 580CC STATES NOT TRULY UNCOMFORTABLE BLADDER REGION WANTS TO WAIT A LITTLE LONGER TO SEE IF HE CAN VOID MORE CALL THROUGH EXCHANGE TO DR. RANDLE.
[2018-05-30 21:24] VITALS: BP 123/76
--- NOTE | 2018-05-30 23:55 | NUR ---
ASSUMED CARES AT 1920. AT 2044, PT SAYS LOWER ABD FEELING FULL. ATTEMPTED TO VOID BUT UNABLE TO. BLADDER SCAN SHOWED 599 CC. STRAIGHT CATH WAS PERFORMED AND HAD 550 CC DARK YELLOW URINE OUTPUT. PT FELT BETTER BUT WORRIED ABOUT NOT BEING ABLE TO VOID STILL. WILL CONTINUE TO MONITOR.
--- NOTE | 2018-05-31 04:25 | NUR ---
AT 0400, PT ATTEMPTED TO VOID IN TOILET. HAD VOIDED SMALL AMOUNT WITH BM. BLADDER SCAN SHOWED 800-900'S CC. STRAIGHT CATH HAD 700 CC YELLOW OUTPUT. PT HAD RELIEF OF ABD DISCOMFORT. WILL MONITOR.
--- NOTE | 2018-05-31 05:29 | NUR ---
PT ALERT AND ORIENTED. PLEASANT. TAKES PILLS WHOLE WITHOUT ISSUES. SBA WITH GAIT BELT AND WALKER. UP TO BATHROOM. DOES OWN CARES. CONTINUES ON CONTACT ISOLATIONS. SLEPT OFF AND ON. CALL LIGHT IN REACH.
[2018-05-31 07:48] VITALS: BP 109/66
--- NOTE | 2018-05-31 15:20 | NUR ---
ASSUMED CARE AT 0730. ALERT ORIENTED PLEASANT COOPERATIVE. HX OF DEBILITY URINE RETENTION COPD. IN CONTACT ISOLATION HX OF MRSA IN NARES. TRANSFERS WITH SBA G BELT WALKER. FEEDS SELF TAKES MEDS WITHOUT DIFFICULTY APPETITE GOOD. MEDICATED X 1 FOR C/O BLADDER PAIN WITH RELIEF STATED. BLADDER SCAN AT 0740 SHOWED 462 CCS PT STRAIGH CATH FOR 300CCS AT 0945 CLEAR KATERINA URINE. PARTICIPATING IN THERAPIES.
--- NOTE | 2018-05-31 16:18 | NUR ---
WOUND CARE NOTE: CONSULT RECEIVED FOR NEW WOUND FOUND TO RIGHT 2ND DIGIT TOE PATIENT PRESENTS WITH A FULL THICKNESS ULCERATION TO THE RIGHT 2ND TOE. PATIENT HAS HALLUX VALGUS AND THE HALLUX RUBS THE AREA ON HIS RIGHT 2ND TOE. ULCERATION MEASURES 0.96X0.7X0.3. YELLOW, MOIST, ADHERENT SLOUGH. UPON PALPATION, FEELS THAT THERE IS SOMETHING HARD IN THE WOUND BED. PATIENT STATES HE HAS SOMETHING ON HIS OTHER FOOT TOO. PATIENT REMOVED HIS SOCK AND SHOE REVEALING AN ULCERATION TO THE DISTAL ASPECT OF THE LEFT SECOND TOE. ULCERATION MEASURES 0.5X0.7X0.2. RED MOIST, YELLOW WOUND BED. GIO-WOUND IS EDEMATOUS AND INFLAMED. DISTAL PORTIONS OF HIS TOES ARE IN THE FLEXED POSITION. PATIENT STATES THEY HAVE BEEN THIS WAY SINCE HIS RIGHT BIG TOE WAS AMPUTATED. PATIENT STATES THESE WOUNDS COME AND GO. NOTIFIED PATIENT'S PHYSICIAN AND NEW ORDERS WERE OBTAINED. CLEANSED BOTH WOUNDS WITH WOUND CLEANSER, PATTED DRY. APPLIED OPTIFOAM AG AND SECURED WITH ROLL GAUZE. PATIENT TOLERATED DRESSING CHANGES WELL. RECOMMEND USE OPTIFOAM AG OVER THE RIGHT 2ND TOE WOUND ENCOURAGE GOOD NUTRITION/HYDRATION
--- NOTE | 2018-05-31 17:30 | NUR ---
PT. STATES HE VOIDED IN TOILET X 1 THIS AFTERNOON FEELING URGE OF NEED TO VOID. VOIDED 50CCS IN URINAL AT 1730. LAZARA MARIA WOUND NURSE SAW PT. THIS AFTERNOON FOR HIS TOE WOUNDS CONSULTED DR. GARCIA WHO WILL SEE PT. TOMORROW. WILL START STRAIGHT CATHS THIS P.M.
[2018-05-31 20:00] VITALS: BP 122/79
--- NOTE | 2018-06-01 00:02 | NUR ---
ASSUMED CARES AT 1920. PT REQUESTED BLADDER SCAN WHICH SHOWED 400 CC. PT C/O LOWER ABD FULLNESS AND DISCOMFORT AND WANTS TO PROCEED WITH STRAIGHT CATH. THIS RN ASSISTED PT WITH PROCEDURE. PT INSERTED CATHETER HIMSELF. ONLY HAD 300 CC OUT OF YELLOW URINE. PT TOLERATED PROCEDURE WELL. WILL CONTINUE TO MONITOR.
--- NOTE | 2018-06-01 05:23 | NUR ---
AT 0300, PT C/O LOWER ABD DISCOMFORT. BLADDER SCAN SHOWED APPROX 881 CC. PT AGREEABLE TO STRAIGHT CATH. THIS RN ASSISTED WITH SET UP. PT PERFORMED SELF CATH. 650 CC YELLOW URINE OUTPUT. PT DID HAVE RELIEF OF SYMPTOMS. HE IS A SBA WITH GAIT BELT AND WALKER. UP TO BATHROOM. 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 DRESSINGS TO BILATERAL TOES ARE INTACT. SLEPT SOME OFF AND ON. CALL LIGHT IN REACH AND BED ALARM ON.
[2018-06-01 07:53] VITALS: BP 103/67
--- NOTE | 2018-06-01 14:22 | NUR ---
SW met with pt to review team conference summary and plan for pt to dc home later today after Dr Wilburn completes consult to assess pt wounds on his feet. Pt in agreement with plan. Pt asked SW if SW could contact [employer] as he thinks his Medicaid may not be active. SW also discussed possible straight cath supplies needed, pt said that he can receive some from his urologist and that he also would purchase some from a company, SW mentioned [employer]. YUMIKO called and spoke with Hailey Joyce from [employer] who said that pt needed to provide bank statements to Medicaid and she would follow up with pt to work with pt to reactivate Medicaid coverage. Pt son to provide pt ride home.
[2018-06-01] MEDS ORDERED: HYDROCODONE-AP1 EAC6 PO (15:16)
[2018-06-01] MEDS ORDERED: AMBIEN 5 MG TABL5 M1 PO (15:16)
[2018-06-01 15:42] VITALS: BP 103/67
[2018-06-01 16:36] VITALS: BP 103/67; BP 120/64
--- NOTE | 2018-06-01 18:24 | NUR ---
ASSUMED CARE AT 0730 PATIENT ALERT/ORIENTED, PAIN MEDS GIVEN X2 THIS SHIFT FOR FEET PAIN, UP WITH STAND BY ASSIST OF ONE WITH WALKER AND GAIT BELT. PARTICIPATED IN ALL THERAPIES TODAY TO DINING ROOM FOR MEALS, HOURLY ROUNDING COMPLETED. BED/CHAIR ALARMS IN PLACE. PATIENT ABLE TO VOID THIS SHIFT, BLADDER SCAN AT 1300 FOR 300 ML AND AT 1800 FOR 282 ML, PATIENT STATES VOIDING IS EASIER TODAY. DR DUBON IN TO SEE PATIENT THIS AFTERNOON, STARTED ON ANTIBIOTIC AND WANTS TO SEE PATIENT IN OFFICE ON WEDNESDAY, OFFICE CARD WAS GIVEN TO PATIENT AND HE HAS BEEN INSTRUCTED TO CALL OFFICE TOMORROW FOR APPOINTMENT. DRESSING TO TOES WITH FOAM DRESSING AND GAUZE TILL SEEN IN OFFICE D/C ORDERS WRITTEN BY DR SMITH, PRESCRIPTIONS FOR AMBIEN AND HYDROCODONE ON CHART. PRESCRIPTION FOR PROSCAR 5MG CALLED TO [facility] IN [place].
[2018-06-01 19:30] VITALS: BP 104/72
--- NOTE | 2018-06-02 04:40 | NUR ---
ASSUMED CARE OF PT AT 1900 PT ALERT AND ORIENTED X4 VS AND ASSESSMENT AT BASELINE. PT AMBULATED TO THE BR WITH GB AND WALKER WITH STANDBY ASSIST. PT SELF CATHED FOR 702 AFTER FIRST BLADDER SCAN. PT DENIED ANY COMPLAINTS AND SLEPT THROUGH THE NIGHT. WILL CONTINUE PLAN OF CARE.
[2018-06-02 08:20] VITALS: BP 120/64
--- NOTE | 2018-06-12 08:16 | H ---
[address] [address] HISTORY AND PHYSICAL Name: INDRA BEGUM LYLA Room: [address] IN .[place].#: [id number] Admission: 05/20/18 Attend Phys: Mickie Reed, Discharge: 06/02/18 Date of : 59 Report #: [id number] THIS REPORT FOR: //name// CC: [facility] physician/PCP Mickie Reed DATE OF SERVICE: 05/20/2018 HISTORY OF PRESENT ILLNESS: This is a 63-year-old male admitted to inpatient rehabilitation to facilitate safe discharge home, status post sepsis with urinary tract infection and alterations in activities of daily living including mobility, who also is status post fall from standing height in his home, hitting his head requiring some abdi. He was hypotensive, hyponatremic and apparently intoxicated. He had no significant loss of consciousness. He was started on IV antibiotics. Choi catheter was placed due to urinary retention and that will be ongoing for about 10 days and then a voiding trial will be in place. He was originally admitted on 05/15/2018. No significant changes since the preadmission screening. Previous level of function was independent to modified and dependent with activities of daily living. Current level of function is [id number]-ta-[id number] assistance of 1-2 depending on therapy, activity and time of day. Mild impairment of his comprehension, expression, memory and problem solving. Estimated length of stay is 7-8 days with discharge disposition to the home setting where he does reside alone, but does have a sister who can also provide some care. PAST MEDICAL HISTORY: Hypertension, atrial fibrillation, COPD, UTI, ETOH use and abuse, anemia, L3 fracture in the past, protein-calorie malnutrition, severe anxiety, frequent falls, chronic subdural hematomas, sepsis, urinary retention, history of MRSA, tobacco abuse, depression, diarrhea, elevated troponin, hyponatremia, BPH, CAD, left toe amputation. MEDICATIONS: Reviewed and reconciled by myself and are available in the MAR. DIAGNOSTIC STUDIES: Completed on 05/15/2018, including chest x-ray and CT of head were reviewed. ALLERGIES: PENICILLIN. SOCIAL HISTORY: Frequent use of alcohol and nfjl-diny-kzg-day smoker. FAMILY HISTORY: Heart disease. REVIEW OF SYSTEMS: A 14-point review of systems is negative except as mentioned in HPI, specifically no fever, chest pain, shortness of breath, [place] [address] HISTORY AND PHYSICAL Name: KELINDRA ARITA Room: [address]#: [id number] Admission: 05/20/18 Attend Phys: Mickie Reed DO Discharge: 06/02/18 Date of : 59 Report #: [id number] PHYSICAL EXAMINATION: GENERAL: Alert, oriented, in no apparent distress, but very frail looking, very thin. HEENT: Head atraumatic with exception of the abdi located in the back of his head. SKIN: Warm and dry. NEUROLOGIC: 5/5 strength in the upper and lower extremities. MUSCULOSKELETAL: No clubbing, cyanosis or edema. ASSESSMENT: 1. Sepsis with urinary tract infection. 2. Debility. 3. Alterations in activities of daily living and mobility. PLAN: 1. Admission to inpatient rehabilitation. 2. PT, OT, speech, language, case management, nursing and HIMS to make evaluations and recommendations. 3. Plan of care is pending and we will team him weekly. 4. Medications have been reconciled. 5. Dietary consultation with regular diet as well as supplementation. <ELECTRONICALLY SIGNED> By: Mickie Reed DO 06/12/18 0816 1042 [id number] Reed DO /nt
--- NOTE | 2018-06-12 08:16 | D ---
[facility] [address] [place] [address] DISCHARGE SUMMARY Name: INDRA BEGUM LYLA Room: [address] IN M.R.#: [id number] Admission: 05/20/18 Attend Phys: Mickie Reed DO Discharge: 06/02/18 Date of : 59 Report #: [id number] THIS REPORT FOR: //name// CC: [facility] physician/PCP Mickie Reed DISCHARGE DISPOSITION: The patient is discharged to the home setting following acute inpatient rehabilitation, where he participated in physical and occupational therapy as well as speech and language pathology. DISCHARGE DIAGNOSES: Debility, status post multiple falls; urinary tract infection and sepsis. FOLLOWUP: He was followed by Urology as well as Internal Medicine during this stay. He will follow up with Urology in 2-3 weeks and primary care physician within one week. Notifications for physician were given. Regular diet. Fall precautions. Medications were reviewed, reconciled and are available in the MAR. Prescriptions needed for one month's time were given. DISCHARGE PHYSICAL EXAMINATION: GENERAL: Alert, oriented, in no apparent distress. VITAL SIGNS: Reviewed and are stable. HEENT: Head atraumatic, normocephalic. Pupils equal, round and reactive. ABDOMEN: Soft, nontender and nondistended. NEUROLOGIC: Cranial nerves 2-12 are grossly intact, with no focal neuro deficits. <ELECTRONICALLY SIGNED> By: Mickie Reed DO 06/12/18 0816 1043 [id number] Reed DO /garry
--- NOTE | 2018-06-12 08:16 | PLAN ---
[address] [address] REHAB UNIT PLAN OF CARE Name: INDRA BEGUM LYLA Room: [address] IN ..#: [id number] Admission: 05/20/18 Attend Phys: Mickie Reed, Discharge: 06/02/18 Date of : 59 Report #: [id number] THIS REPORT FOR: //name// CC: [facility] physician/PCP Mickie Reed DATE OF SERVICE: 05/21/2018 This is a 63-year-old male admitted to inpatient rehabilitation to facilitate safe discharge home, status post acute hospitalization beginning on 05/15/2018 for sepsis, urinary tract infection, debility, and alterations in activities of daily living and mobility who did sustain a fall from standing height in his home, as well as hypotensive episode, multiple metabolic changes including hyponatremia. Medical prognosis is fair. Rehabilitation prognosis is fair. Estimated length of stay is 6 to 8 days with discharge disposition to the home setting where he has supportive family including his sister, as well as residence that is accommodating. Previous level of function was independent to modified independent with activities of daily living. Current level of function is minimum to moderate assistance of one depending on therapy, activity and time of day. Physical therapy will see the patient 60 to 90 minutes per day, 5 days per week, working on upper and lower body strength, balance, coordination, navigation. Occupational therapy will work with the patient 60 to 90 minutes per day, 5 days per week, working on upper and lower body strength, balance, coordination, navigation, bathing, dressing, and toileting. Speech language pathology will work with the patient 30 to 90 minutes per day working on comprehension, expression, social interaction, problem solving, and memory. This is an overall plan of care, may change from time to time, we will team weekly and make changes to plan of care as needed. <ELECTRONICALLY SIGNED> By: Mickie Reed DO 06/12/18 0816 1045 0110Mickie Reed DO /nt
--- NOTE | 2018-07-06 13:56 | CON ---
[facility] [address] [place] [address] CONSULTATION Name: INDRA BEGUM LYLA Room: [address] IN M.R.#: [id number] Admission: 05/20/18 Attend Phys: Mickie Reed, DO Discharge: 06/02/18 Date of : 59 Report #: [id number] THIS REPORT FOR: //name// CC: [facility] physician/PCP Mickie Reed DATE OF SERVICE: 06/01/2018 CHIEF COMPLAINT: The patient known to me for prior toe wounds. He currently has several digital ulcerations to the distal toes, with localized inflammation. There is planned discharge today. Specifically, there is a wound to the left second toe, full thickness. The patient does not know how they occurred, likely due from trauma or shoe gear. PHYSICAL EXAMINATION: Ulceration to the left distal second toe measures 0.6 x 0.8 x 0.1 cm, low-grade inflammation, no drainage. Red granulation with no necrosis or exposed bone or tendon. Faintly palpable pedal pulses bilaterally. Several other toes have dry eschars to them. IMPRESSION: Digital ulcerations with localized inflammation to the left second toe. PLAN: I prescribed minocycline 100 mg p.o. b.i.d. x 10 days and I will follow up with him in my office. <ELECTRONICALLY SIGNED> By: Anil Wilburn DPM 07/06/18 1356 1613 [id number] Wilburn DPM /garry
== END 2018-06-02 12:00 | disposition home or self-care (01) | DRG 947 ==
LOC: M.REH 12:24
PROVIDERS: Internal Medicine; ADMIT Physical Medicine & Rehabilitation
DX: R53.81 Other malaise (principal); S06.5X9A Traumatic subdural hemorrhage with loss of consciousness of unspecified duration, initial encounter; A41.9 Sepsis, unspecified organism; N39.0 Urinary tract infection, site not specified; E87.1 Hypo-osmolality and hyponatremia; E44.0 Moderate protein-calorie malnutrition; Z68.1 Body mass index [BMI] 19.9 or less, adult; R33.9 Retention of urine, unspecified; I10 Essential (primary) hypertension; I48.91 Unspecified atrial fibrillation; J44.9 Chronic obstructive pulmonary disease, unspecified; D64.9 Anemia, unspecified; F41.9 Anxiety disorder, unspecified; F32.9 Major depressive disorder, single episode, unspecified; N40.0 Benign prostatic hyperplasia without lower urinary tract symptoms; I25.10 Atherosclerotic heart disease of native coronary artery without angina pectoris; F17.210 Nicotine dependence, cigarettes, uncomplicated; F10.129 Alcohol abuse with intoxication, unspecified; Z89.422 Acquired absence of other left toe(s); X58.XXXA Exposure to other specified factors, initial encounter; Y93.89 Activity, other specified; Y92.89 Other specified places as the place of occurrence of the external cause; Y99.8 Other external cause status; Z79.899 Other long term (current) drug therapy; Z88.0 Allergy status to penicillin; Z82.49 Family history of ischemic heart disease and other diseases of the circulatory system

== ENCOUNTER 2018-07-29 11:53 | Inpatient (IN) | payer OTHER ==
[~2018-07-29] VITALS: Ht 182.9 cm; Wt 62.6 kg
[~2018-07-29 11:53] MED LIST changes: +PEPCID20 MG PO
[2018-07-29 11:57] VITALS: BP 144/97
[2018-07-29] MEDS ORDERED: CLARITIN10 MG PO (12:00)
[2018-07-29] MEDS ORDERED: ZANTAC 150MG T150 MG PO (12:03)
[2018-07-29] MEDS ORDERED: REMERON15 MG PO (12:03)
[2018-07-29] MEDS ORDERED: TRAMADOL 50 MG50 MG PO (12:03)
[2018-07-29] MEDS ORDERED: LOPERAMIDE 2 MG2 M1 PO (12:04)
[2018-07-29] MEDS ORDERED: PHENAZOPYRIDIN100 M1 PO (12:04)
[2018-07-29 12:42] LABS: HEMATOCRIT 36.3 % (42.0-52.0); HEMOGLOBIN 12.2 gm/dL (14.0-18.0); MCH 32.7 pg (26.0-34.0); MCHC 33.7 g/dL (28.0-37.0); MPV 7.2 fl. (7.2-11.1); NUCLEATED RBCS 0 /100WBC; PLATELET COUNT* 237 thou/uL (150-400); RBC 3.74 mil/uL (4.50-6.00); RDW-CV 15.5 % (10.5-14.5); WBC 5.7 thou/uL (4.0-11.0)
[2018-07-29 12:56] LABS: ANION GAP 6 mmol/L (7-16); BUN 13 mg/dL (7-18); CALCIUM 8.3 mg/dL (8.5-10.1); CHLORIDE 101 mmol/L (98-107); CO2 31 mmol/L (21-32); CREATININE 0.8 mg/dL (0.6-1.3); GLUCOSE 84 mg/dL (70-99); POTASSIUM 4.3 mmol/L (3.5-5.1); SODIUM 138 mmol/L (136-145)
[2018-07-29 13:00] LABS: URINE BILIRUBIN NEGATIVE (Negative); URINE BLOOD NEGATIVE (Negative); URINE CLARITY CLEAR; URINE COLOR YELLOW; URINE GLUCOSE-RANDOM NEGATIVE (Negative); URINE KETONES NEGATIVE (Negative); URINE LEUKOCYTES-REFLEX 1+ (Negative); URINE NITRITE-REFLEX NEGATIVE (Negative); URINE PROTEIN NEGATIVE (Negative); URINE UROBILINOGEN 0.2 E.U./dl (0.2-1.0)
[2018-07-29 13:06] LABS: AMP/METHAMP Negative (Negative); BARBITURATES Negative (Negative); BENZODIAZEPINES Negative (Negative); COCAINE Negative (Negative); METHADONE Negative (Negative); OPIATES POSITIVE (Negative); PCP Negative (Negative); THC Negative (Negative)
[2018-07-29 13:06] LABS: ALBUMIN 3.3 g/dL (3.4-5.0); ALKALINE PHOSPHATASE 101 U/L (46-116); LIPASE 87 U/L (73-393); MAGNESIUM 1.4 mg/dL (1.8-2.4); NT-PRO BRAIN NAT PEPTIDE 55 pg/mL (<300); SGOT 23 U/L (15-37); SGPT 20 U/L (30-65); TOTAL BILIRUBIN 0.3 mg/dL (<0.1-1.0); TOTAL PROTEIN 7.1 g/dL (6.4-8.2); TROPONIN-I LEVEL <0.06 ng/mL (<0.06)
[2018-07-29 13:17] LABS: ABSOLUTE BASOPHILS 0.1 thou/uL (0.0-0.2); ABSOLUTE EOSINOPHILS 0.6 thou/uL (0.0-0.7); ABSOLUTE LYMPHOCYTES 1.3 thou/uL (0.8-5.3); ABSOLUTE MONOCYTES 0.8 thou/uL (0.0-1.2); ABSOLUTE NEUTROPHILS 2.9 thou/uL (1.6-8.1); PLATELET ESTIMATE ADEQUATE
[2018-07-29 13:19] LABS: SQUAMOUS 0-3 Few /LPF (0-3); URINE WBC-REFLEX 6-15 Few /HPF (0-5)
[2018-07-29 13:20] LABS: BACTERIA-REFLEX 1-9 Few /HPF (None Seen); CASTS None Seen /LPF (None Seen); CRYSTALS None Seen /LPF (None Seen); MUCUS None Seen strn/LPF (None Seen); URINE RBC 0-2 Rare /HPF (0-2)
[2018-07-29 14:51] VITALS: BP 122/72
[2018-07-29 15:00] VITALS: BP 131/80
--- NOTE | 2018-07-29 17:14 | EKG ---
[place] [address] ELECTROCARDIOGRAM REPORT Name: INDRA BEGUM Room: [address] ADM IN R.#: [id number] Admission: 07/29/18 Attend Phys: Pebbles Lara Discharge: Date of : 59 Report #: [id number] THIS REPORT FOR: //name// [facility] ED Test Date: 2018-07-29 Test Time: 12:09:34 Pat Name: INDRA BEGUM Department: Room: [facility] Gender: M Cleat Thrower: KITA : 1955 Requested By: Nate Torres Order Number: [id number] MD: Kashmir Bennett Measurements Intervals [place] Rate: 99 P: 64 WV: 179 QRS: -54 QRSD: 85 T: 57 QT: 358 QTc: 460 Interpretive Statements Sinus rhythm LAD, consider left anterior fascicular block Compared to ECG 05/15/2018 00:37:12 Sinus tachycardia no longer present Ventricular premature complex(es) no longer present Electronically Signed On 07-29-2018 17:14:42 CDT by Kashmir Bennett [email or web address] <ELECTRONICALLY SIGNED> By: Kashmir Bennett MD, FACC 07/29/18 1714 1209 1209 Kashmir Bennett MD, [facility] /EPI
[2018-07-29 19:20] VITALS: BP 130/82
[2018-07-30] VITALS: BP 115/79
[2018-07-30 04:00] VITALS: BP 139/81
[2018-07-30 04:48] LABS: HEMOGLOBIN 13.2 gm/dL (14.0-18.0); MCH 32.3 pg (26.0-34.0); MCHC 32.9 g/dL (28.0-37.0); MCV 98.1 fL (80.0-100.0); MPV 7.7 fl. (7.2-11.1); RBC 4.07 mil/uL (4.50-6.00); RDW-CV 15.7 % (10.5-14.5); WBC 4.7 thou/uL (4.0-11.0)
[2018-07-30 04:59] LABS: ALBUMIN 3.2 g/dL (3.4-5.0); CALCIUM 8.1 mg/dL (8.5-10.1); CREATININE 0.7 mg/dL (0.6-1.3); MAGNESIUM 1.3 mg/dL (1.8-2.4); POTASSIUM 3.9 mmol/L (3.5-5.1); TOTAL BILIRUBIN 0.5 mg/dL (<0.1-1.0); TOTAL PROTEIN 6.9 g/dL (6.4-8.2)
[2018-07-30 08:00] VITALS: BP 125/82
[2018-07-30 11:48] VITALS: BP 109/72
[2018-07-30 15:44] VITALS: BP 114/68
[2018-07-30 19:00] VITALS: BP 121/72
[2018-07-31] VITALS: BP 102/67
[2018-07-31 04:00] VITALS: BP 133/88
[2018-07-31 09:27] VITALS: BP 140/86
[2018-07-31 11:59] VITALS: BP 119/75
--- NOTE | 2018-07-31 14:57 | EKG ---
[place] [address] ELECTROCARDIOGRAM REPORT Name: INDRA BEGUM LYLA Room: [address] ADM IN M.R.#: [id number] Admission: 07/29/18 Attend Phys: Pebbles Lara Discharge: Date of : 59 Report #: [id number] THIS REPORT FOR: //name// [facility] Test Date: 2018-07-30 Test Time: 08:15:39 Pat Name: INDRA BEGUM Department: Room: [address] Gender: M Lab Support Technician: : 1955 Requested By: Reese Pinzon Order Number: [id number] Rhoda MD: Farooq Rodriguez Measurements Intervals [place] Rate: 65 P: 66 [place]: 198 QRS: -49 QRSD: 98 T: 66 QT: 426 QTc: 443 Interpretive Statements Sinus rhythm Left axis deviation Compared to ECG 07/29/2018 12:09:34 Left-axis deviation now present Electronically Signed On 07-31-2018 14:56:57 CDT by Farooq Rodriguez [email or web address] <ELECTRONICALLY SIGNED> By: Farooq Rodriguez MD, FACC 07/31/18 1456 4 4 Farooq Rodriguez MD, [facility] /EPI
[2018-07-31 15:44] VITALS: BP 142/83
[2018-07-31 19:00] VITALS: BP 132/80
[2018-08-01] VITALS: BP 140/86
[2018-08-01 04:00] VITALS: BP 158/96
[2018-08-01 04:32] LABS: HEMATOCRIT 39.9 % (42.0-52.0); MCH 32.4 pg (26.0-34.0); MCHC 32.6 g/dL (28.0-37.0); MCV 99.3 fL (80.0-100.0); MPV 7.7 fl. (7.2-11.1); RBC 4.01 mil/uL (4.50-6.00); RDW-CV 16.1 % (10.5-14.5); WBC 6.3 thou/uL (4.0-11.0)
[2018-08-01 04:51] LABS: CALCIUM 8.7 mg/dL (8.5-10.1); CREATININE 0.7 mg/dL (0.6-1.3); POTASSIUM 4.5 mmol/L (3.5-5.1)
[2018-08-01 08:45] VITALS: BP 107/62
[2018-08-01 12:08] VITALS: BP 103/69
[2018-08-01 16:07] VITALS: BP 132/84
[2018-08-01 20:00] VITALS: BP 131/82
[2018-08-02] VITALS: BP 133/72
[2018-08-02 04:00] VITALS: BP 143/88
[2018-08-02 08:00] VITALS: BP 124/90
[2018-08-02] MEDS ORDERED: KEFLEX500 M1 PO (11:16)
[2018-08-02] MEDS ORDERED: AMBIEN 5 MG TABL5 M1 PO (11:21)
[2018-08-02] MEDS ORDERED: HYDROCODONE-AP1 EAC6 PO (11:21)
[2018-08-02 12:33] VITALS: BP 108/78
[2018-08-02 15:45] VITALS: BP 139/83
[2018-08-02 20:00] VITALS: BP 114/76
[2018-08-03] VITALS: BP 120/70
[2018-08-03 04:00] VITALS: BP 135/82
[2018-08-03 08:00] VITALS: BP 137/85
[2018-08-03 12:00] VITALS: BP 123/80
[2018-08-03 12:02] VITALS: BP 137/85
== END 2018-08-03 12:30 | disposition home or self-care (01) | DRG 690 ==
LOC: M.ERS 11:53 → M.TBA-ER 13:36 → M.2W 13:36
PROVIDERS: Emergency Medicine; ADMIT Internal Medicine
DX: N39.0 Urinary tract infection, site not specified (principal); I10 Essential (primary) hypertension; I48.91 Unspecified atrial fibrillation; J44.9 Chronic obstructive pulmonary disease, unspecified; F32.9 Major depressive disorder, single episode, unspecified; F41.9 Anxiety disorder, unspecified; F17.210 Nicotine dependence, cigarettes, uncomplicated; Z82.49 Family history of ischemic heart disease and other diseases of the circulatory system; Z83.3 Family history of diabetes mellitus; Z88.0 Allergy status to penicillin; Z83.6 Family history of other diseases of the respiratory system; Z87.81 Personal history of (healed) traumatic fracture; Z79.899 Other long term (current) drug therapy

== ENCOUNTER 2019-06-13 16:41 | Inpatient (IN) | payer OTHER ==
[~2019-06-13] VITALS: Ht 182.9 cm; Wt 62.7 kg
--- NOTE | ~2019-06-13 | CON ---
[address] [address] CONSULTATION Name: INDRA BEGUM LYLA Room: [address] IN M.R.#: [id number] Admission: 06/13/19 Attend Phys: Joel Dixon MD Discharge: Date of : 59 Report #: [id number] THIS REPORT FOR: //name// CC: Joel Chang DICTATED BY: Karie Infante [facility] Please note at the time of this dictation, the patient was seen and physically examined by myself. REASON FOR CONSULTATION: Diarrhea, abdominal pain. HISTORY OF PRESENT ILLNESS: This is a 64-year-old male, who presented to the Emergency Room after having abdominal pain over the weekend persisting into Wednesday. He had some associated nausea and vomiting. On that morning, he ate a breakfast burrito that was then subsequently followed with nausea, vomiting, abdominal pain and explosive uncontrollable diarrhea that happened for 2 days. He has not had any since admission on Wednesday. He has had no further nausea, vomiting or diarrhea at this time. He does have a remote history of C. diff in the past that has come back negative on this hospitalization. He states he has issues with diarrhea ever since he had his gallbladder out and he has had to take Imodium on a more regular basis for this. He states prior to this explosive diarrhea, he was taking Imodium pretty regularly and he had not had a bowel movement in several days prior to all of this. 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 He was placed back on his Protonix and Carafate at that time. He had a colonoscopy back in 2012 at [place] that showed diverticulosis at that time. ALLERGIES: PENICILLIN. MEDICATIONS FROM HOME: Ambien, Lopressor, DuoNeb. PAST MEDICAL HISTORY: Hypertension, atrial fib, COPD, anxiety, MRSA of his left foot, history of an L3 fracture, depression. PAST SURGICAL HISTORY: Left shoulder surgery and right hand surgery. FAMILY HISTORY: Negative for any GI or female cancers. SOCIAL HISTORY: He is cutting back on his smoking; previously, he was smoking half a pack per day, he has less than that now. Prior to 2016, the patient had a pretty heavy alcohol use in the past; now, he states he rarely drinks at all. The patient currently is living [place] [address] CONSULTATION Name: KEL,INDRA LYLA Room: [address]#: [id number] Admission: 06/13/19 Attend Phys: Joel Dixon MD Discharge: Date of : 59 Report #: [id number] REVIEW OF SYSTEMS: Twelve-point review of systems is essentially negative except what is mentioned in the HPI. PHYSICAL EXAMINATION: VITAL SIGNS: Temperature 36.2, pulse 72, respirations 16, blood pressure 134/94. HEART: Regular rate and rhythm. LUNGS: Clear. ABDOMEN: Soft, positive bowel sounds in all 4 quadrants, with just some very slight tenderness noted in general throughout. LABORATORY DATA: Hemoglobin is 12.2, white count is 5.3, platelets are 72. GFR is 137, total bili 0.4, alkaline phosphatase 116, ALT 84, AST is 82. C. diff was negative, acute hepatitis panel was negative. CT showed hepatic steatosis, otherwise negative. IMPRESSION: 1. Diarrhea, now resolved. History of bile acid diarrhea, which he takes large amounts of Imodium to control. 2. Abdominal pain significantly improved. 3. Nausea and vomiting, resolved. 4. Thrombocytopenia. 5. Hepatic steatosis. 6. Alcohol abuse. PLAN: 1. We will start some Colestid. 2. Recent EGD in [place]. He was placed on Protonix and Carafate, we will resume. 3. No plans for any endoscopy studies at this time. Thank you for allowing us to participate in this patient's care. Please do not hesitate to call with any questions in regard to this consult. By: 0818 1059Calvin Perdue MD /garry
--- NOTE | ~2019-06-13 | EMS ---
[address] [address] EMS Patient Care Report Name: INDRA BEGUM LYLA [id number] Admission: 06/13/19 Attend Phys: Discharge: Date of : 59 Report #: [id number] THIS REPORT FOR: //name// Report Transmitted: 06/13/2019 17:25 EMS Care Summary [facility] Incident [id number] @ 06/13/2019 15:18 Incident Location [address] [place] [address] Patient INDRA WILSON Male, 64 Years 1955 Patient Address [address] [place] [address] Patient History Chronic Obstructive Pulmonary Disease (COPD),Atrial Fibrillation, Patient Allergies Penicillin, Patient Medications Prescription, Magnesium Oxide, Metoprolol, Chief Complaint Uncontrolled diarrhea Disposition Transported No Lights/Tebbetts Dispatch Reason Sick Person Transported To [facility] Narrative D- HEMS 32 dispatched on uncontrollable bowels at a local residence. CC- On EMS arrival, the pt was seated on his couch in front room. PT stated that he had uncontrollable diarrhea with stomach cramping. [address] [address] EMS Patient Care Report Name: INDRA BEGUM LYLA Room: [facility] JORDON Perkins#: [id number] Admission: 06/13/19 Attend Phys: Discharge: Date of : 59 Report #: [id number] H- Pt stated that he had been hospitalized approx 3 weeks prior due to a dx of "corkscrew esophagus". Pt stated that he had been hospitalized approx 3 times in the 6 months leading up to this event for multiple dxs. Pt stated that for this incident, that he had been having diarrhea for approx 4 days but was treating with Imodium. Pt stated that the Imodium had been working but that "cramping" had increased. Pt stated that he did not have an appetite for those 4 days as well and had not been eating properly. Pt stated that the morning of this incident, he had gone to [employer] and ordered food. Pt stated that he then vomited what he had eaten and "extreme diarrhea" had started. Pt stated that he had gotten so weak throughout the morning that he was unable to get up to use the restroom and had soiled himself multiple times. Pt had heavily saturated pants with a slight red, brown liquid coming from it. Pt stated that he had a hx of C-diff and that the symptoms he was experiencing "felt just like that". A- See "Assessment" Tab Initial Assessment-Airway patent, breathing spontaneous and non-labored, circulation weak and regular. Pt was NICE to PPTE. Skin flaky and dry, warm and pale. No bleeding or immediate life threats noted. R- Pt required further evaluation by a physician at a local ED, transport on cot, and IV access. T- Vitals and assessments obtained. EKG placed with Sinus Tach noted with PACs noted and confirmed with 12-lead. IV access obtained in LFA and fluids ran with 2 250cc boluses ran over 20 min. ETCO2 placed via NC @ 2LPM. Pt was assisted to feet and he was able to pivot from standing position onto cot. Pt was placed in position of comfort and secured to using straps provided and then secured into ambulance. Radio report given. Pt was continually monitored during transport. S- Pt remained on cot for duration of transport. Pt stated that he had not soiled himself since before EMS arrival. At receiving facility pt care was transferred to nursing staff with verbal report given. RTS Vladimir Quispe, ANGELICAP Initial Vitals @15:30P: 99,R: 16,BP: 98/70,GCS: 15,SpO2: 93,Revised Trauma: 12, @16:20P: 88,R: 18,BP: 124/89,GCS: 15,EtCO2: 31,SpO2: 95,Revised Trauma: 12, @16:00P: 95,R: 20,BP: 124/89,GCS: 15,EtCO2: 32,SpO2: 97,Revised Trauma: 12, @15:50P: 106,R: 28,BP: 125/91,GCS: 15,EtCO2: 13,SpO2: 92,Revised Trauma: 12,3-Lead ECG: Sinus Rhythm @16:05P: 86,R: 19,GCS: 15,EtCO2: 30,SpO2: 100,3-Lead ECG: Sinus Rhythm @15:41P: 105,R: 20,GCS: 15,3-Lead ECG: Sinus Tachycardia3-Lead Additional: [id number] [address] EMS Patient Care Report Name: INDRA BEGUM [facility]#: [id number] Admission: 06/13/19 Attend Phys: Discharge: Date of : 59 Report #: [id number] Assessments @15:28MENTAL:Person Oriented,Time Oriented,Place Oriented,Event Oriented,SKIN:Pale,Other,HEENT:Eyes: Left Pupil: 3-mm,Eyes: Right Pupil: 3-mm,LUNG SOUNDS:General: Diarrhea,Left Upper: Other,Right Upper: Other,ABDOMEN:General: Diarrhea,Left Upper: Other,Right Upper: Other,PELVIS//GI:Incontinence,EXTREMITIES:Left Arm: Weakness,Right Arm: Weakness,Left Leg: Weakness,Right Leg: Weakness,Capillary Refill: Left Upper: < 2 Sec,PULSE:Radial: 1+ Thready,NEURO:@16:06MENTAL:Person Oriented,Time Oriented,Place Oriented,Event Oriented,SKIN:Pale,Other,HEENT:Eyes: Left Pupil: 3-mm,Eyes: Right Pupil: 3-mm,Head/Face: No Abnormalities,Neck/Airway: No Abnormalities,LUNG SOUNDS:General: Diarrhea,Left Upper: Other,Right Upper: Other,ABDOMEN:General: Diarrhea,Left Upper: Other,Right Upper: Other,PELVIS//GI:No Abnormalities,EXTREMITIES:Left Arm: Weakness,Right Arm: Weakness,Left Leg: Weakness,Right Leg: Weakness,Capillary Refill: Left Upper: < 2 Sec,PULSE:Radial: 1+ Thready,NEURO:No Abnormalities, Impression Abdominal Pain/Problems Procedures @15:28ALS AssessmentResponse: UnchangedSucceeded@15:4112-Lead ECGResponse: UnchangedSucceeded@15:44Lactated Ringers 500cc (20 ga) Site: Forearm-LeftResponse: UnchangedSucceeded@15:413-Lead ECGResponse: UnchangedSucceeded@16:30 cc (20 ga) Site: Forearm-LeftResponse: UnchangedSucceeded@15:34Saline Lock 0cc (20 ga) Site: Antecubital-LeftResponse: UnchangedFailed@15:38Saline Lock 0cc (20 ga) Site: Forearm-LeftResponse: UnchangedFailed@15:48Oxygen FlowRate: 2 Device: CO2 Nasal Cannula Response: ImprovedSucceeded Timeline 15:17,Call Received 15:18,Dispatched 15:20,En Route 15:26,On Scene 15:27,At Patient 15:28,ALS Assessment,Response: UnchangedSucceeded, 15:30,BP: 98/70 M,PULSE: 99,RR: 16 R,SPO2: 93 Ox,ETCO2: ,BG: ,PAIN: ,GCS: 15, 15:34,Saline Lock 0cc 20 ga Site: Antecubital-Left,Response: UnchangedFailed, 15:38,Saline Lock 0cc 20 ga Site: Forearm-Left,Response: UnchangedFailed, 15:41,12-Lead ECG,Response: UnchangedSucceeded, 15:41,3-Lead ECG,Response: UnchangedSucceeded, 15:41,BP: / M,PULSE: 105,RR: 20 R,SPO2: Ox,ETCO2: ,BG: ,PAIN: ,GCS: 15, 15:44,Lactated Ringers 500cc 20 ga Site: Forearm-Left,Response: UnchangedSucceeded, 15:48,Oxygen FlowRate: 2 Device: CO2 Nasal Cannula Response: ImprovedSucceeded, 15:50,BP: 125/91 M,PULSE: 106,RR: 28 R,SPO2: 92 Ox,ETCO2: 13 ,BG: ,PAIN: ,GCS: [place] [address] EMS Patient Care Report Name: MUMTAZ BEGUMRY LYLA [id number] Admission: 06/13/19 Attend Phys: Discharge: Date of : 59 Report #: [id number] 15, 15:52,Depart Scene 16:00,BP: 124/89 M,PULSE: 95,RR: 20 R,SPO2: 97 Ox,ETCO2: 32 ,BG: ,PAIN: ,GCS: 15, 16:05,BP: / M,PULSE: 86,RR: 19 R,SPO2: 100 Ox,ETCO2: 30 ,BG: ,PAIN: ,GCS: 15, 16:20,BP: 124/89 M,PULSE: 88,RR: 18 R,SPO2: 95 Ox,ETCO2: 31 ,BG: ,PAIN: ,GCS: 15, 16:30, cc 20 ga Site: Forearm-Left,Response: UnchangedSucceeded, 16:32,At Destination 17:35,Call Closed Disclaimer v1.1 Copyright 2019 [employer] This EMS Care Summary contains data elements from the applicable legal record (which may be displayed differently). It is designed to provide pertinent information for the following purposes: continuity of care, clinical quality, and state data reporting. The complete legal record is available to ED staff and administrators of the receiving hospital in [facility]'s Patient Tracker. All data is provided "as is."
[~2019-06-13 16:41] MED LIST changes: +CLARITIN10 MG PO; +KEFLEX500 M1 PO; +LOPERAMIDE 2 MG2 M1 PO; +PHENAZOPYRIDIN100 M1 PO; +REMERON15 MG PO
[2019-06-13 16:45] VITALS: BP 115/86
[2019-06-13] MEDS ORDERED: ROBAXIN 750 MG750 MG PO (17:11)
[2019-06-13 18:07] LABS: ABSOLUTE EOSINOPHILS 0.5 thou/uL (0.0-0.7); ABSOLUTE LYMPHOCYTES 0.6 thou/uL (0.8-5.3); ABSOLUTE MONOCYTES 0.2 thou/uL (0.0-1.2); ABSOLUTE NEUTROPHILS 4.4 thou/uL (1.6-8.1); BASOPHILS 0.5 %; EOSINOPHILS 9.1 %; HEMATOCRIT 41.9 % (42.0-52.0); HEMOGLOBIN 14.1 gm/dL (14.0-18.0); LYMPHOCYTES 9.7 %; MCHC 33.7 g/dL (28.0-37.0); MONOCYTES 3.5 %; MPV 8.3 fl. (7.2-11.1); NUCLEATED RBCS 0 /100WBC; PLATELET COUNT* 85 thou/uL (150-400); POLYS 77.2 %; RBC 4.28 mil/uL (4.50-6.00); RDW-CV 17.6 % (10.5-14.5); WBC 5.7 thou/uL (4.0-11.0)
[2019-06-13 18:33] LABS: CALCIUM 8.1 mg/dL (8.5-10.1); CREATININE 0.8 mg/dL (0.6-1.3); POTASSIUM 4.3 mmol/L (3.5-5.1); TOTAL BILIRUBIN 0.7 mg/dL (<0.1-1.0); TOTAL PROTEIN 6.5 g/dL (6.4-8.2); TROPONIN-I LEVEL 0.16 ng/mL (<0.06)
[2019-06-13 19:39] VITALS: BP 120/80
[2019-06-13 19:57] VITALS: BP 120/81
[2019-06-13] MEDS ORDERED: PROTONIX40 M1 PO (20:16)
[2019-06-14] VITALS (7 sets, daily range): BP systolic 93–139; BP diastolic 63–86
[2019-06-14 00:20] LABS: URINE BILIRUBIN NEGATIVE (Negative); URINE BLOOD NEGATIVE (Negative); URINE CLARITY CLEAR; URINE COLOR YELLOW; URINE GLUCOSE-RANDOM NEGATIVE (Negative); URINE KETONES NEGATIVE (Negative); URINE LEUKOCYTES-REFLEX NEGATIVE (Negative); URINE NITRITE-REFLEX NEGATIVE (Negative); URINE PROTEIN NEGATIVE (Negative); URINE SPECIFIC GRAVITY 1.015 (1.005-1.030); URINE UROBILINOGEN 0.2 E.U./dl (0.2-1.0)
[2019-06-14 00:45] LABS: AMP/METHAMP Negative (Negative); BARBITURATES Negative (Negative); BENZODIAZEPINES Negative (Negative); COCAINE Negative (Negative); METHADONE Negative (Negative); OPIATES POSITIVE (Negative); PCP Negative (Negative); THC Negative (Negative)
[2019-06-14 02:56] LABS: HEMATOCRIT 38.1 % (42.0-52.0); HEMOGLOBIN 12.8 gm/dL (14.0-18.0); MCH 32.9 pg (26.0-34.0); MCHC 33.5 g/dL (28.0-37.0); MCV 98.1 fL (80.0-100.0); MPV 8.4 fl. (7.2-11.1); NUCLEATED RBCS 0 /100WBC; PLATELET COUNT* 76 thou/uL (150-400); RBC 3.88 mil/uL (4.50-6.00); RDW-CV 17.4 % (10.5-14.5); WBC 5.1 thou/uL (4.0-11.0)
[2019-06-14 03:08] LABS: CALCIUM 7.6 mg/dL (8.5-10.1); CREATININE 0.6 mg/dL (0.6-1.3); POTASSIUM 3.7 mmol/L (3.5-5.1)
[2019-06-14 04:16] LABS: ABSOLUTE EOSINOPHILS 0.9 thou/uL (0.0-0.7); ABSOLUTE LYMPHOCYTES 1.7 thou/uL (0.8-5.3); ABSOLUTE MONOCYTES 0.2 thou/uL (0.0-1.2); ABSOLUTE NEUTROPHILS 2.4 thou/uL (1.6-8.1)
[2019-06-14 04:24] LABS: ANISOCYTOSIS 1+; PLATELET ESTIMATE DECREASED
--- NOTE | 2019-06-14 05:53 | NUR ---
PT WAS ADMITTED TO ROOM 215 DURING THIS SHIFT; VSS, A+OX4, SINUS RHYTHM, RED BOTTOM (PICTURES TAKEN). HE IS ABLE TO COMMUNICATE HIS NEEDS TO STAFF EFFECTIVELY. HE HAS DENIED THE NEED FOR PAIN MEDICATION UP TO THIS TIME. SPECIAL CONTACT ISOLATION FOR POSSIBLE C. DIFF. (TESTING PENDING) MAINTAINED. HE HAS BEEN NPO SINCE MIDNIGHT FOR AN ABDOMINAL CT WITH ORAL CONTRAST LATER THIS MORNING.
--- NOTE | 2019-06-14 10:26 | EKG ---
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 : 1955 Requested By: Nate Torres Order Number: [id number] MD: Kashmir Bennett Measurements Intervals [place] Rate: 79 P: 59 AR: 159 QRS: -78 QRSD: 87 T: 67 QT: 373 QTc: 428 Interpretive Statements Sinus rhythm Left anterior fascicular block Low voltage, precordial leads Compared to ECG 07/30/2018 08:15 no change Electronically Signed On 06-14-2019 10:26:16 CDT by Kashmir Bennett [email or web address] <ELECTRONICALLY SIGNED> By: Kashmir Bennett MD, [facility] 06/14/19 1026 192 21 Kashmir Bennett MD, [facility] /EPI
[2019-06-14 11:10] LABS: ALBUMIN 2.8 g/dL (3.4-5.0); DIRECT BILIRUBIN 0.3 mg/dL (<0.1-0.3); TOTAL BILIRUBIN 0.6 mg/dL (<0.1-1.0); TOTAL PROTEIN 5.5 g/dL (6.4-8.2)
--- NOTE | 2019-06-14 11:25 | NUR ---
TOMASA DISCONTINUED THE PATIENTS IVF FROM HIS IV FOR HIM TO GO DOWNSTAIRS FOR HIS CT.
--- NOTE | 2019-06-14 12:00 | NUR ---
PATIENT RETURNED FROM CT - IVF RESTARTED. PATIENT REPORTED HE TAKES HYDROCODONE AT HOME AND AFTER REVIEW, IT IS NOT A CURRENT MEDICATION. RN TO PAGE THE PHYSICIAN TO INQUIRY ABOUT RESTARTING.
--- NOTE | 2019-06-14 12:15 | NUR ---
RN SPOKE TO DR. MCWILLIAMS REGARDING PAIN MEDICATION. AT HOME, PATIENT TAKES HYDROCODONE; HOWEVER, DR. MCWILLIAMS IS ENTERING OXYCODONE DUE TO PATIENTS ELEVATED LIVER ENZYMES.
--- NOTE | 2019-06-14 15:31 | NUR ---
Pt is A&O. Pt states that he recently moved to a duplex, continues to reside at home alone. Pt is independent with ADLs and IADLs. Pt stated that he sister does assist as needed. Pt primarily uses a cane, but also has a walker and wc. Pt has a home neb. Hx of [facility]. No hx of SNF. Hx of acute rehab. Goal is home at mt. Following.
--- NOTE | 2019-06-14 16:06 | NUR ---
ASSUMED PT CARE AT 0700, PT A&O X4, VSS, RA, DOCUMENTATION LIAISON TRACING SINUS RHYTHM WITH PVC, FULL ASSESSMENT CHARTED. PT EDUCATED ON NPO STATUS, CT OF ABDOMEN TO BE COMPLETED THIS AM. WILL CONT POC.
--- NOTE | 2019-06-14 16:27 | NUR ---
ASSUMED CARE OF PT AT APPROXIMATELY 1600. REPORT RECEIVED FROM Erinn TSAI, AGREE WITH PREVIOUS ASSESSMENT
--- NOTE | 2019-06-14 18:35 | NUR ---
PT PARTIALLY PROGRESSING TOWARDS GOALS. PT ATE 50% OF THE DINNER MEAL. WILL CONTINUE PLAN OF CARE.
[2019-06-15] VITALS: BP 99/69
[2019-06-15 04:00] VITALS: BP 134/95
[2019-06-15 04:27] LABS: ABSOLUTE EOSINOPHILS 1.4 thou/uL (0.0-0.7); ABSOLUTE LYMPHOCYTES 1.6 thou/uL (0.8-5.3); ABSOLUTE MONOCYTES 0.4 thou/uL (0.0-1.2); ABSOLUTE NEUTROPHILS 1.9 thou/uL (1.6-8.1); BASOPHILS 0.3 %; EOSINOPHILS 26.8 %; HEMATOCRIT 36.3 % (42.0-52.0); HEMOGLOBIN 12.2 gm/dL (14.0-18.0); LYMPHOCYTES 29.8 %; MCH 32.9 pg (26.0-34.0); MCHC 33.6 g/dL (28.0-37.0); MCV 98.1 fL (80.0-100.0); MPV 8.6 fl. (7.2-11.1); NUCLEATED RBCS 0 /100WBC; PLATELET COUNT* 72 thou/uL (150-400); POLYS 35.1 %; RDW-CV 17.4 % (10.5-14.5); WBC 5.3 thou/uL (4.0-11.0)
[2019-06-15 04:42] LABS: PREALBUMIN 14.5 mg/dL (18.0-35.7)
[2019-06-15 04:54] LABS: ALBUMIN 2.4 g/dL (3.4-5.0); CALCIUM 6.9 mg/dL (8.5-10.1); CREATININE 0.6 mg/dL (0.6-1.3); POTASSIUM 3.3 mmol/L (3.5-5.1); TOTAL BILIRUBIN 0.4 mg/dL (<0.1-1.0); TOTAL PROTEIN 5.3 g/dL (6.4-8.2)
[2019-06-15 07:00] VITALS: BP 140/88
[2019-06-15 07:12] LABS: HEPATITIS B SURFACE AG Negative (Negative)
--- NOTE | 2019-06-15 08:03 | NUR ---
PT IS ABLE TO COMMUNICATE HIS NEEDS TO STAFF EFFECTIVELY. CURRENT PAIN MEDICATION REGIMEN HAS BEEN ADEQUATE FOR CONTROLLING HIS PAIN UP TO THIS TIME. C. DIFF. TESTING CAME BACK NEGATIVE, BUT PT IS STILL RECEIVING TREATMENT FOR C. DIFF AT THIS TIME. SPECIAL ISOLATION MAINTAINED.
[2019-06-15 11:31] VITALS: BP 110/75
--- NOTE | 2019-06-15 11:56 | NUR ---
Spoke with , anticipate dc to home tomorrow, CM to follow to see if Pt will want HH. Per UR, Pt is out of network, in network hospitals are [facility], [facility], and [facility].
--- NOTE | 2019-06-15 12:17 | NUR ---
WOUND CARE NOTE: CONSULT RECEIVED FOR 'VERY RED BUTTOCKS' PATIENT PRESENTS WITH RED, BLANCHABLE, DENUDED SKIN TO BILATERAL MEDIAL BUTTOCKS AND SACRAL AREA. PATIENT WITH HISTORY OF C.DIFF, BUT NEGATIVE RESULT DURING THIS STAY. PATIENT ADMITS THAT DIARRHEA IS GETTING MUCH BETTER, STATES HE MAY GO HOME TOMORROW. PATIENT CURRENTLY WEARING BRIEF, EDUCATED ON CONCERNS OF WEARING BRIEF--HEAT/MOISTURE ON SKIN, COMMUNICATED UNDERSTANDING. HOWEVER, PATIENT STATES HE FEELS BETTER WITH BRIEF ON, STATES IT IS KIND OF A PADDING. COMPROMISE MADE, PATIENT WILLING TO REMOVE BRIEF WHEN HE GETS TO BED. WAFFLE CUSHION AND Z-GUARD BARRIER OINTMENT OBTAINED FOR PATIENT. EDUCATED ON Z-GUARD, COMMUNICATED UNDERSTANDING. RECOMMEND TURN Q2 HOURS WAFFLE CUSHION WHEN IN CHAIR Z-GUARD BARRIER OINTMENT BID AND PRN NO BRIEFS LIMIT LAYERS OF LINEN UNDER PATIENT LIMIT HOB <30 DEGREES KEEP AREA FREE FROM STOOL/URINE
[2019-06-15 15:35] VITALS: BP 116/71
[2019-06-15 21:08] VITALS: BP 130/79
[2019-06-16] VITALS: BP 133/78
[2019-06-16 04:00] VITALS: BP 128/83
--- NOTE | 2019-06-16 08:25 | NUR ---
PT IS ABLE TO COMMUNICATE HIS NEEDS TO STAFF EFFECTIVELY. CURRENT PAIN MEDICATION REGIMEN HAS BEEN ADEQUATE FOR CONTROLLING HIS PAIN UP TO THIS TIME. HE DID HAVE SOME RECURRENT NAUSEA, DIARRHEA, AND ABD PAIN THIS MORNING; MEDS GIVEN. C. DIFF. TESTING WAS NEGATIVE.
--- NOTE | 2019-06-16 08:30 | NUR ---
ASSUMED CARE AFTER REPORT APPROX 0730. OX4, ABLE TO COMMUNICATE NEEDS TO STAFF. REQUIRED INCONTINENCE CARE AT FIRST ENCOUNTER. SPECIAL EDUCATION INCLUSION TEACHER IN PLACE, SR, 94. O2 SAT 94% RA, AFTER COUGH/DEEP BREATHE. NO PAIN AT THIS TIME, NO NAUSEA, SOA, DIZZINESS OR OTHER DISTRESS. CALL LIGHT IN REACH. HOURLY ROUNDING FOR SAFETY AND PATIENT NEEDS.
[2019-06-16 09:15] VITALS: BP 128/83
[2019-06-16 11:56] VITALS: BP 106/63
[2019-06-16 13:30] LABS: CALCIUM 7.8 mg/dL (8.5-10.1); CREATININE 0.7 mg/dL (0.6-1.3); POTASSIUM 3.5 mmol/L (3.5-5.1)
--- NOTE | 2019-06-16 15:44 | NUR ---
YUMIKO spoke with Dr Cerda regarding dc planning; pt not ready to dc today. Plan for pt to be able to dc home; possibly with HH. Pt has history with [facility]. Pt insurance not in network with [facility] inpt rehab but if needed, could try [facility], [facility], [facility] or [facility]. SW to continue to follow to assist with safe dc planning if needs arise.
[2019-06-16 16:01] VITALS: BP 129/89
[2019-06-16 20:00] VITALS: BP 135/87
[2019-06-17] VITALS (7 sets, daily range): BP systolic 119–142; BP diastolic 80–86
[2019-06-17 04:14] LABS: HEMATOCRIT 38.4 % (42.0-52.0); HEMOGLOBIN 12.9 gm/dL (14.0-18.0); MCH 32.6 pg (26.0-34.0); MCHC 33.5 g/dL (28.0-37.0); MCV 97.3 fL (80.0-100.0); MPV 8.3 fl. (7.2-11.1); NUCLEATED RBCS 0 /100WBC; PLATELET COUNT* 109 thou/uL (150-400); RBC 3.94 mil/uL (4.50-6.00); RDW-CV 17.9 % (10.5-14.5); WBC 4.9 thou/uL (4.0-11.0)
[2019-06-17 04:30] LABS: APTT 30.7 Seconds (25.0-31.3)
[2019-06-17 04:34] LABS: ALBUMIN 2.8 g/dL (3.4-5.0); CALCIUM 8.8 mg/dL (8.5-10.1); CREATININE 0.6 mg/dL (0.6-1.3); MAGNESIUM 1.8 mg/dL (1.8-2.4); PHOSPHORUS* 3.6 mg/dL (2.5-4.9); POTASSIUM 3.9 mmol/L (3.5-5.1); TOTAL BILIRUBIN 0.5 mg/dL (<0.1-1.0); TOTAL PROTEIN 6.1 g/dL (6.4-8.2)
--- NOTE | 2019-06-17 04:37 | NUR ---
PT ALERT ORIENTED. UP WITH ASSIST AND WALKER. TELEMETRY SHOWS SR WITH INTERMIT 1ST DEGREE AVB. NS AT 100MLS/HR. VOIDS CLEAR YELLOW PER URINAL. PAIN PILL GIVEN FOR BACK PAIN. TURN Q 2 HRS
[2019-06-17 06:18] LABS: ABSOLUTE BASOPHILS 0.1 thou/uL (0.0-0.2); ABSOLUTE EOSINOPHILS 0.8 thou/uL (0.0-0.7); ABSOLUTE LYMPHOCYTES 1.4 thou/uL (0.8-5.3); ABSOLUTE MONOCYTES 0.4 thou/uL (0.0-1.2); ABSOLUTE NEUTROPHILS 2.2 thou/uL (1.6-8.1)
[2019-06-17 06:19] LABS: PLATELET ESTIMATE DECREASED
[2019-06-17 06:20] LABS: ANISOCYTOSIS 1+
[2019-06-17] MEDS ORDERED: MAGNESIUM400 MG PO (13:09)
[2019-06-17] MEDS ORDERED: IPRAT-ALBUT 0.5-3 ML INH (13:09)
[2019-06-17] MEDS ORDERED: COLESTID1 GM PO (13:09)
[2019-06-17] MEDS ORDERED: CARAFATE 1 GM TA1 G1 PO (13:09)
--- NOTE | 2019-06-17 13:55 | NUR ---
Received order from physician to arrange d/c home with home health. Per previous CM note, pt has used [facility] in the past and wants to use again. Faxed orders to [facility] and called to confirm receipt. No other needs identified.
--- NOTE | 2019-06-17 14:23 | NUR ---
Received order from physician to arrange home health. Per previous CM note, pt has history of home health from [facility]. Called [facility] and they report pt has never been on service with them and they are not in network with pt's insurance. Called [facility]. They are in network with insurance, but will need to verify insurance benefits from Wednesday. Faxed referral. They will f/u with case management on Wednesday re: acceptance.
--- NOTE | 2019-06-17 15:05 | NUR ---
THIS RN HAS REVIEWED AND AGREES WITH THE ASSESSMENT AND CHARTING OF SARAH RANDOLPH.
--- NOTE | 2019-06-17 15:20 | NUR ---
RECEIVED PT FROM TOMASA FOSTER. PT VITALS STABLE, PT NORMAL SINUS RHYTHM WITH INTERMITTENT 1ST DEGREE BLOCK ON TELE. PT VOIDING, LAST BM LOOSE X2 ON 06/16/19. SPECIMEN OF STOOL ORDERED BUT NEVER COLLECTED (NO BM). PT ATE BREAKFAST AND LUNCH. PT ON HIGH FALL RISK DUE TO WEAKNESS AND FALLS REPORTED WITHIN THE LAST 90 DAYS. PT ADHERED TO FALL PRECAUTIONS, PT TOOK SCHEDULED MEDS. REPORTED PAIN OF 5 IN THE AM AND TOOK PAIN MEDS. DISCHARGE ORDERS PRESENT. DISCHARGE INSTRUCTIONS VERIFIED INCLUDING MEDICATION LIST VERIFICATION. HARD SCRIPTS AND MEDICATION INFORMATION GIVEN TO PT WITH DISCHARGE INSTRUCTIONS. EDUCATION ADDRESSED, IV REMOVED WITH NO SIGNS OF INFILTRATION OR EXTRAVASATION. PICTURE TAKEN OF WOUND ON SACRUM AND BUTTOCKS. PERSONAL BELONGINGS GATHERED AND SENT WITH PT. PATIENT PUSHED TO THE LOBBY IN A WHEELCHAIR FOR PICKUP BY SISTER AT 1520.
== END 2019-06-17 15:18 | disposition home health service (06) | DRG 432 ==
LOC: M.ERS 16:41 → M.TBA-ER 18:29 → M.ERS 18:29 → M.2W 19:29 → M.TBA-ER 19:29 → M.2W 19:53 → M.TBA-ER 19:53 → M.2W 21:16
PROVIDERS: Emergency Medicine; Family Medicine; ADMIT Internal Medicine
DX: K70.30 Alcoholic cirrhosis of liver without ascites (principal); E43 Unspecified severe protein-calorie malnutrition; Z68.1 Body mass index [BMI] 19.9 or less, adult; K52.9 Noninfective gastroenteritis and colitis, unspecified; I10 Essential (primary) hypertension; I48.91 Unspecified atrial fibrillation; J44.9 Chronic obstructive pulmonary disease, unspecified; F41.9 Anxiety disorder, unspecified; F32.9 Major depressive disorder, single episode, unspecified; D69.6 Thrombocytopenia, unspecified; K76.0 Fatty (change of) liver, not elsewhere classified; F10.10 Alcohol abuse, uncomplicated; F17.210 Nicotine dependence, cigarettes, uncomplicated; N40.0 Benign prostatic hyperplasia without lower urinary tract symptoms; Z91.19 Patient's noncompliance with other medical treatment and regimen; Z87.81 Personal history of (healed) traumatic fracture; Z86.14 Personal history of Methicillin resistant Staphylococcus aureus infection; Z88.0 Allergy status to penicillin; Z82.49 Family history of ischemic heart disease and other diseases of the circulatory system; Z83.3 Family history of diabetes mellitus; Z83.6 Family history of other diseases of the respiratory system

== ENCOUNTER 2019-09-21 08:52 | Inpatient (IN) | payer OTHER ==
[~2019-09-21] VITALS: Ht 182.9 cm; Wt 66.5 kg
[~2019-09-21 08:52] MED LIST changes: +CARAFATE 1 GM TA1 G1 PO; +COLESTID1 GM PO; +IPRAT-ALBUT 0.5-3 ML INH; +MAGNESIUM400 MG PO; +ROBAXIN 750 MG750 MG PO
[2019-09-21 08:54] VITALS: BP 127/81
[2019-09-21 09:50] LABS: HEMATOCRIT 42.3 % (42.0-52.0); HEMOGLOBIN 13.8 gm/dL (14.0-18.0); MCH 32.9 pg (26.0-34.0); MCHC 32.5 g/dL (28.0-37.0); MCV 101.3 fL (80.0-100.0); MPV 7.4 fl. (7.2-11.1); NUCLEATED RBCS 0 /100WBC; PLATELET COUNT* 360 thou/uL (150-400); RBC 4.18 mil/uL (4.50-6.00); WBC 16.2 thou/uL (4.0-11.0)
[2019-09-21 09:54] LABS: PROTIME 9.9 Seconds (9.20-11.50)
[2019-09-21 10:01] LABS: CALCIUM 8.7 mg/dL (8.5-10.1); CREATININE 1.3 mg/dL (0.6-1.3); POTASSIUM 4.2 mmol/L (3.5-5.1)
[2019-09-21 10:02] LABS: ALBUMIN 3.6 g/dL (3.4-5.0); TOTAL BILIRUBIN 0.3 mg/dL (<0.1-1.0); TOTAL PROTEIN 7.6 g/dL (6.4-8.2)
[2019-09-21 10:47] LABS: URINE BLOOD NEGATIVE (Negative); URINE CLARITY CLEAR; URINE COLOR YELLOW; URINE GLUCOSE-RANDOM NEGATIVE (Negative); URINE KETONES 2+ (Negative); URINE LEUKOCYTES-REFLEX NEGATIVE (Negative); URINE NITRITE-REFLEX NEGATIVE (Negative); URINE PROTEIN NEGATIVE (Negative); URINE SPECIFIC GRAVITY >= 1.030 (1.005-1.030); URINE UROBILINOGEN 0.2 E.U./dl (0.2-1.0)
[2019-09-21 10:52] LABS: ICTOTEST (BILI CONFIRMATORY) Negative (Negative); URINE BILIRUBIN 1+ (Negative)
[2019-09-21 11:54] LABS: ABSOLUTE BASOPHILS 0.3 thou/uL (0.0-0.2); ABSOLUTE LYMPHOCYTES 0.5 thou/uL (0.8-5.3); ABSOLUTE MONOCYTES 0.5 thou/uL (0.0-1.2); ABSOLUTE NEUTROPHILS 14.9 thou/uL (1.6-8.1); PLATELET ESTIMATE ADEQUATE
--- NOTE | 2019-09-21 12:09 | NUR ---
REPORT GIVEN TO TOMASA TRIANA WHO IS TO ASSUME PT CARE INPATIENT NURSE.
[2019-09-21 12:10] VITALS: BP 117/77
[2019-09-21 13:12] VITALS: BP 119/77
--- NOTE | 2019-09-21 16:01 | EKG ---
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 : 1955 Requested By: Solomon Mcdonough Order Number: [id number] MD: Rafa Barker Measurements Intervals [place] Rate: 142 P: 78 [place]: 115 QRS: 261 QRSD: 106 T: 48 QT: 292 QTc: 449 Interpretive Statements Sinus tachycardia Consider RVH w/ secondary repol abnormality Inferior infarct, age indeterminate possible Possible anterolateral infarct, old Artifact in lead(s) I,II,III,aVR,aVL,aVF Compared to ECG 06/13/2019 19:22:02 Myocardial infarct finding now present Sinus rate has increased Electronically Signed On 09-21-2019 16:00:53 REAL ESTATE LOAN OFFICER by Rafa Barker [email or web address] <ELECTRONICALLY SIGNED> By: Rafa Barker MD, [facility] 09/21/19 1600 0857 Rafa Barker MD, [facility] /EPI
--- NOTE | 2019-09-21 16:19 | NUR ---
RECIEVIED REPORT FROM YIN RN IN ER OF EXPECTED ADMISSION AT 1205- DX: SEPSIS, UTI, AFIB WITH RVR, DEHYDRATION- PT ARRIVED TO ROOM 220 VIA CART AT 1240- AX1 TO BED- FINANCIAL SALES ASSISTANT PLACED ORDERED, TRACING SR- PT NOTED TO HAVE BEEN PLACED ON IV CARDIZEM IN ER PRIOR TO ADMISSION AND NOTED TO CONVERT TO SR- PT A&O X4- CONTINENT OF B/B- A X1 WITH TRANSFERS- LCTA, CONGESTION NOTED- VS 97.9 20 119/77 86 100% ON 2L VIA NC- ABD SOFT/ROUND/NON-TENDER, BS X4 QUADS- LAST BM REPORTED X2 DAYS AGO- IV NOTED TO LEFT FA INTACT, IV FLUUIDS AND IV CARDIZEM AT 5ML/HR INFUSSING PRESCIBEB- LEFT BUTTOCKS NOTED WITH OPEN AREA, EXCORATION NOTED TO INNER THIGHS/GROIN AND BOTTOM-MG NOTED AT 1.1 AND IS CURRENTLY BEING REPLACED PER PROTOCOL- TRAMADOL AND TYLENOL X1 GIVEN R/T C/O THROAT PAIN- LACTIC NOTED AT 5.1 ON ADMISSION AND CURRENTLY DOWN TO 2.6- CALL LIGHT AND PERSONAL BELONGINGS WITH IN REACH- PT MAKES NEEDS KNOWN- ALL NEEDS MET AT THIS TIME-WCTM
[2019-09-21 17:06] VITALS: BP 101/60
[2019-09-21 20:00] VITALS: BP 100/57
[2019-09-22] VITALS: BP 112/71
[2019-09-22 04:00] VITALS: BP 118/79
[2019-09-22 07:58] VITALS: BP 105/67
--- NOTE | 2019-09-22 09:08 | NUR ---
ASSUMED CARE OF PT THIS AM AROUND 0715- PRODUCTION CELL LEADER IN PLACE ORDERED, TRACING SR WITH 1ST DEGREE- UPON ASSESSMENT PT NOTED TO BE RESTING IN BED, WATCHING TV- PT A&O X4- CONTINENT OF BOWEL, OAKES IN PLACE D/D CLEAR YELLOW URINE- A X1 WITH TRANSFERS- LCTA, RESP EVEN AND UN-LABORED- CONGESTED COUGH NOTED- VSS, O2 STA 92% ON RA- ABD SOFT/ROUND/NON-TENDER, BS X4 QUADS- LAST BM REPORTED 09/21/19- IV NOTED TO LEFT FA AND RIGHT WRIST INTACT, IVF INFUSSING PRESCIBED- MG REPLACED PER PROTOCOL WITH REDRAW TO FOLLOW- IV ABT GIVEN THIS AM PRESCIBED- POOR PO INTAKE NOTED THIS AM WITH BREAKFAST R/T THROAT/ESOPHAGUS PAIN, THROAT NOTED TO BE RED WITH A FEW TINY WHITE PATCHES NOTED- NOTIFIED OF C/O PAIN ALONG WITH ASSESSMENT FINDINGS, AND PRN TYLENOL GIVEN THIS AM AT 0830- NO NEW ORDERS RECEIVED AT THIS TIME- CALL LIGHT AND PERSONAL BELONGINGS WITH IN REACH- HOURLY ROUNDS IN PLACE R/T SAFETY/NEEDS- ALL NEEDS MET AT THIS TIME-WCTM
--- NOTE | 2019-09-22 11:11 | NUR ---
Pt is A&O. Resides at home alone. Pt states that he has been doing well at home, independent and active. Pt has a walker, cane and wc at home. Hx of [facility]. No hx of SNF. Hx of acute rehab. Pt stated "there's something wrong with my throat, I hope they can figure out what it is." Goal is home at [place]. Following.
[2019-09-22 12:13] VITALS: BP 88/59
[2019-09-22 16:28] VITALS: BP 112/74
[2019-09-22 20:00] VITALS: BP 116/78
[2019-09-23] VITALS: BP 126/82
[2019-09-23 04:00] VITALS: BP 116/76
--- NOTE | 2019-09-23 06:25 | NUR ---
PT A+O X4. PT TRACING SR 1D ON MONITOR. PT REPORTED FEELING WEAK AND REQUESTED PT CONSULT. AND WOULD LIKE A WALKER AND TO GET UP IN THE CHAIR TODAY. WILL PASS ONTO DAY SHIFT. CALL LIGHT IN REACH. HOURLY ROUNDING FOR SAFETY.
[2019-09-23 08:00] VITALS: BP 121/74
[2019-09-23 12:03] VITALS: BP 107/68
[2019-09-23 14:00] LABS: ABSOLUTE BASOPHILS 0.1 thou/uL (0.0-0.2); ABSOLUTE EOSINOPHILS 1.6 thou/uL (0.0-0.7); ABSOLUTE LYMPHOCYTES 1.2 thou/uL (0.8-5.3); ABSOLUTE MONOCYTES 0.4 thou/uL (0.0-1.2); ABSOLUTE NEUTROPHILS 4.6 thou/uL (1.6-8.1); BASOPHILS 1.3 %; EOSINOPHILS 20.1 %; HEMATOCRIT 33.8 % (42.0-52.0); LYMPHOCYTES 15.4 %; MCH 33.5 pg (26.0-34.0); MCHC 34.3 g/dL (28.0-37.0); MCV 97.5 fL (80.0-100.0); MONOCYTES 5.5 %; MPV 7.6 fl. (7.2-11.1); NUCLEATED RBCS 0 /100WBC; POLYS 57.7 %; RBC 3.47 mil/uL (4.50-6.00); RDW-CV 15.5 % (10.5-14.5)
[2019-09-23 14:03] LABS: HEMOGLOBIN 11.6 gm/dL (14.0-18.0); PLATELET COUNT* 183 thou/uL (150-400)
[2019-09-23 16:52] VITALS: BP 115/72
[2019-09-23 20:00] VITALS: BP 127/77
[2019-09-24] VITALS: BP 121/82
--- NOTE | 2019-09-24 01:21 | NUR ---
PT IS A +O X 4. REPORTS CP/ESOPHAGUS GONE. PT REPORTED THAT "I REUSED MY STRAIGHT CATHETERS @ HOME. THATS HOW I GOT A UTI." PT ALSO REPORTED THAT HE USED TO O2 @ HS 2 HOME "BUT DOESNT HAVE IT ANY MORE." EDUCATED PT TO DICUSS ACCESS TO MEDICAL EQUIPMENT WITH DR AND CASE MANAGEMENT PRIOR TO DISCHARGE. PT ALSO REPORTED BOTH WRISTS "SORE FROM IVS." IVS APPEAR PATENT AND FLUSH WELL. NO S+S OF INFILTRATION. CALL LIGHT IN REACH. HOURLY ROUNDING FOR SAFETY.
[2019-09-24 04:00] VITALS: BP 121/58
[2019-09-24 04:40] LABS: HEMATOCRIT 33.8 % (42.0-52.0); HEMOGLOBIN 11.6 gm/dL (14.0-18.0); MCH 33.7 pg (26.0-34.0); MCHC 34.4 g/dL (28.0-37.0); MCV 98.1 fL (80.0-100.0); MPV 7.8 fl. (7.2-11.1); RBC 3.44 mil/uL (4.50-6.00); RDW-CV 15.9 % (10.5-14.5); WBC 7.6 thou/uL (4.0-11.0)
[2019-09-24 05:23] LABS: ALBUMIN 2.5 g/dL (3.4-5.0); CREATININE 0.6 mg/dL (0.6-1.3); POTASSIUM 3.2 mmol/L (3.5-5.1); TOTAL BILIRUBIN 0.5 mg/dL (<0.1-1.0); TOTAL PROTEIN 5.9 g/dL (6.4-8.2)
[2019-09-24 12:00] VITALS: BP 109/72
[2019-09-24 16:00] VITALS: BP 129/93
--- NOTE | 2019-09-24 19:12 | NUR ---
ASSUMED PT CARE AT 0730. ASSESSMENT COMPLETED CHARTED. ABLE TO MAKE NEEDS KNOWN. UP WITH 1 ASSIST. C/O LEFT WRIST PAIN AND GAVE PRN PAIN MEDS PER EMAR. NOTIFIED DR OF CONTINUED PAIN IN LEFT WRIST, N.N.O. IV FLUIDS PER EMAR. 2L O2. WILL CONTINUE TO MONITOR.
[2019-09-24 20:00] VITALS: BP 130/79
--- NOTE | 2019-09-24 20:00 | NUR ---
RECEIVED REPORT AND ASSUMED CARE OF PT, ASSESSMENT COMPLETED. PT PLEASANT. C/O LT WRIST PAIN. AREA RED AND EDEMATOUS. DISCUSSED GOUT/INFLAMMATION. WILL GIVE PO PAIN MEDS REQUESTED. O2 ON AT 1L/NC, SITTING UP IN BED, NO SOA NOTED. TELEMETRY ON SHOWING SR WITH 1ST AVB. WILL CONT TO MONITOR AND ASSIST NEEDED.
[2019-09-25 00:50] VITALS: BP 109/64
[2019-09-25 05:00] VITALS: BP 112/70
--- NOTE | 2019-09-25 06:13 | NUR ---
AWAKE MOST OF NIGHT DUE TO PAIN INTO LT WRIST. PO MEDS GIVEN BUT PT STATES NOT HELPING AT ALL. NO CHANGE IN ASSESSMENT. TELEMETRY SHOWING SR WITH 1ST AVB. HS GOAL OF SAFETY ACHIEVED BUT NOT REST/COMFORT. HOURLY ROUNDING OBSERVED.
[2019-09-25 08:00] VITALS: BP 129/78
--- NOTE | 2019-09-25 10:50 | EKG ---
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: : 1955 Requested By: Susanne Wheeler Order Number: [id number] MD: Kashmir Bennett Measurements Intervals [place] Rate: 63 P: 43 MO: 201 QRS: -30 QRSD: 90 T: 49 QT: 428 QTc: 439 Interpretive Statements Sinus rhythm Left axis deviation Baseline wander in lead(s) V1,V2 Compared to ECG 09/21/2019 08:57:40 Sinus tachycardia no longer present Electronically Signed On 09-25-2019 10:50:10 METAL FURNITURE GLAZIER by Kashmir Bennett [email or web address] <ELECTRONICALLY SIGNED> By: Kashmir Bennett MD, [facility] 09/25/19 1050 1106 1106 Kashmir Bennett MD, [facility] /EPI
[2019-09-25 13:06] VITALS: BP 109/68
--- NOTE | 2019-09-25 13:17 | NUR ---
WOUND NURSE: PATIENT SEEN TO ADDRESS DARK RED, MACULAR RASH ON BILATERAL BUTTOCKS AND PERINEUM. RECOMMEND AND APPLIED PHYTOPLEX AF MOISTURE BARRIER TOPICALLY TO AFFECTED AREA. THERE IS NO OPEN WOUND IDENTIFIED.
--- NOTE | 2019-09-25 14:13 | 2DMMODE ---
[place] [address] 2 D/M-MODE ECHOCARDIOGRAM Name: INDRA BEGUM LYLA Room: [address] IN [facility]#: [id number] Admission: 09/21/19 Attend Phys: Reese Pinzon Discharge: Date of : 59 Date of Service: 09/25/19 1412 Report #: [id number] THIS REPORT FOR: //name// APPROVED REPORT Study performed: 09/25/2019 10:46:19 EXAM: Comprehensive 2D, Doppler, and color-flow Echocardiogram Patient Location: In-Patient Room #: 220 Status: routine BSA: 1.84 HR: 65 bpm BP: 129/78 mmHg Rhythm: NSR Other Information Study Quality: Good Indications Atrial Fibrillation Sepsis 2D Dimensions IVSd: 10.21 (7-11mm) LVOT Diam: 23.56 (18-24mm) LVDd: 43.83 mm PWd: 9.20 (7-11mm) Ascending Ao: 38.42 (22-36mm) LVDs: 21.23 (25-40mm) Aortic Root: 35.22 mm Volumes Left Atrial Volume (Systole) LA ESV Index: 31.20 mL/m2 Aortic Valve AoV Peak Darwin.: 0.90 m/s AO Peak Gr.: 3.27 mmHg LVOT Max P.04 mmHg AO Mean Gr.: 2.03 mmHg LVOT Mean P.06 mmHg LVOT Max V: 0.72 m/s AO V2 VTI: 17.30 cm LVOT Mean V: 0.48 m/s GRANT (VTI): 3.93 cm2 LVOT V1 VTI: 15.60 cm Mitral Valve E/A Ratio: 1.89 MV Decel. Time: 169.68 [place] [address] 2 D/M-MODE ECHOCARDIOGRAM Name: INDRA BEGUM LYLA Room: [address] IN [facility]#: [id number] Admission: 09/21/19 Attend Phys: Reese Pinzon Discharge: Date of : 59 Date of Service: 09/25/19 1412 Report #: [id number] MV E Max Darwin.: 1.07 m/s MV PHT: 49.21 ms MVA (PHT): 4.47 cm2 TDI E/Lateral E': 8.23 E/Medial E': 8.92 Medial E' Darwin.: 0.12 m/s Lateral E' Darwin.: 0.13 m/s Pulmonary Valve PV Peak Darwin.: 0.64 m/s PV Peak Gr.: 1.62 mmHg Tricuspid Valve RAP Estimate: 5.00 mmHg TR Peak Gr.: 22.49 mmHg RVSP: 27.00 mmHg PA Pressure: 27.00 mmHg Left Ventricle The left ventricle is normal size. There is normal LV segmental wall motion. There is normal left ventricular wall thickness. Left ventricular systolic function is normal. The left ventricular ejection fraction is within the normal range. LVEF is 65-70%. The left ventricular diastolic function is normal. Right Ventricle The right ventricle is normal size. The right ventricular systolic function is normal. Atria Left atrium is mildly dilated. The right atrium size is normal. Aortic Valve The aortic valve is normal in structure. No aortic regurgitation is present. There is no aortic valvular stenosis. Mitral Valve The mitral valve is normal in structure. Trace mitral regurgitation. No evidence of mitral valve stenosis. Tricuspid Valve The tricuspid valve is normal in structure. Trace tricuspid regurgitation. Pulmonic Valve The pulmonary valve is normal in structure. [place] [address] 2 D/M-MODE ECHOCARDIOGRAM Name: INDRA BEGUM LYLA Room: [address]#: [id number] Admission: 09/21/19 Attend Phys: Reese Pinzon Discharge: Date of : 59 Date of Service: 09/25/19 1412 Report #: [id number] valvular regurgitation. Great Vessels Aortic root is mildly dilated. IVC is normal in size and collapses >50% with inspiration. Pericardium There is no pericardial effusion. <Conclusion> LVEF is 65-70%. Left atrium is mildly dilated. <ELECTRONICALLY SIGNED> By: Kashmir Bennett MD, FACC 09/25/191411 11 11 Kashmir Bennett MD, FACC /INF
[2019-09-25 16:00] VITALS: BP 120/77
[2019-09-25 20:00] VITALS: BP 133/78
--- NOTE | 2019-09-25 20:08 | NUR ---
assumed pt care at 0730, full assesment done as charted. pt a/o x4, c/o left hand pain, the hand is red and swollen, new meds ordered, hand elevated and ice pack provided. pt reports some relief today. up with assist, to chair this am, wu in place, dependent to drainage. VSS, SR on the monitor. fall precautions in place. pt calls appropriatly for needs. report given to Viraj RANDOLPH
[2019-09-26] VITALS: BP 132/69
[2019-09-26 04:00] VITALS: BP 137/70
--- NOTE | 2019-09-26 04:14 | NUR ---
Pt is aox4, running NSR on telemetry, respirations are even and unlabored. Pt is not in acute distress at this time.
[2019-09-26 04:45] LABS: HEMATOCRIT 31.6 % (42.0-52.0); HEMOGLOBIN 10.7 gm/dL (14.0-18.0); MCH 33.6 pg (26.0-34.0); MCHC 33.9 g/dL (28.0-37.0); MPV 8.3 fl. (7.2-11.1); RBC 3.19 mil/uL (4.50-6.00); RDW-CV 15.5 % (10.5-14.5); WBC 6.9 thou/uL (4.0-11.0)
[2019-09-26 04:47] LABS: CALCIUM 7.7 mg/dL (8.5-10.1); CREATININE 0.9 mg/dL (0.6-1.3); POTASSIUM 3.6 mmol/L (3.5-5.1)
[2019-09-26 08:00] VITALS: BP 132/82
[2019-09-26] MEDS ORDERED: BACTRIM DS TAB1 EACH PO (11:27)
[2019-09-26] MEDS ORDERED: HYDROCODON-ACE1 EAC7 PO ×2 (11:32→14:29)
[2019-09-26 12:15] VITALS: BP 107/73
[2019-09-26] MEDS ORDERED: ASA81BEC PO (14:01)
[2019-09-26] MEDS ORDERED: IPRAT-ALBUT 0.5-3 ML INH (14:11)
[2019-09-26 14:22] VITALS: BP 107/73
== END 2019-09-26 15:02 | disposition home or self-care (01) | DRG 872 ==
LOC: M.ERS 08:52 → M.2W 10:51 → M.TBA-ER 10:51 → M.2W 12:49
PROVIDERS: Family Medicine; ADMIT Internal Medicine
DX: A41.9 Sepsis, unspecified organism (principal); N39.0 Urinary tract infection, site not specified; L03.114 Cellulitis of left upper limb; I10 Essential (primary) hypertension; I48.91 Unspecified atrial fibrillation; J44.9 Chronic obstructive pulmonary disease, unspecified; F41.9 Anxiety disorder, unspecified; E86.0 Dehydration; R31.9 Hematuria, unspecified; K74.60 Unspecified cirrhosis of liver; F10.10 Alcohol abuse, uncomplicated; D53.9 Nutritional anemia, unspecified; B37.9 Candidiasis, unspecified; Z88.0 Allergy status to penicillin; Z79.899 Other long term (current) drug therapy

== ENCOUNTER 2020-02-21 18:57 | Inpatient (IN) | payer OTHER ==
[~2020-02-21] VITALS: Ht 182.9 cm; Wt 62.6 kg
--- NOTE | ~2020-02-21 | PROC ---
[address] [address] PROCEDURE REPORT Name: INDRA BEGUM Room: [address] IN M.R.#: [id number] Admission: 02/21/20 Attend Phys: Pebbles Lara Discharge: 02/25/20 Date of : 59 Report #: [id number] THIS REPORT FOR: //name// cc: Jose Chang MD, Matthew D MD ~ THIS REPORT FOR: //name// For GI report, please see the Provation report in Perceptive 7 content. By: 07Medical Records Staff XUAN /RONI
--- NOTE | ~2020-02-21 | CON ---
[address] [address] CONSULTATION Name: KELINDRA LYLA Room: [address] IN .R.#: [id number] Admission: 02/21/20 Attend Phys: Pebbles Lara Discharge: Date of : 59 Report #: [id number] THIS REPORT FOR: //name// cc: Jose Chang MD, Matthew D MD ~ THIS REPORT FOR: //name// CC: Jose Pinzon DATE OF SERVICE: 02/22/2020 HISTORY OF PRESENT ILLNESS: The patient is a 64-year-old gentleman. The patient has a past medical history significant for COPD, atrial fibrillation on chronic anticoagulation, anxiety, depression and alcohol abuse. The patient presents for evaluation of a 3-day history of abdominal pain, nausea, vomiting. The patient reports these symptoms are particularly prominent earlier in the week. These seemed to have resolved briefly, again they returned about 3 days back. The patient denies similar episodes in the past. He reports he has had a cholecystectomy several years back. PAST SURGICAL HISTORY: Left shoulder surgery, cholecystectomy. PAST MEDICAL HISTORY: Hypertension, atrial fibrillation, COPD, anxiety, alcohol abuse and depression. SOCIAL HISTORY: The patient is an active smoker, half pack per day smoking. Denies significant recreational drug use. Remote history of alcohol abuse. REVIEW OF SYSTEMS: Comprehensive 10-point review of systems is negative except for what was mentioned in the HPI. PHYSICAL EXAMINATION: VITAL SIGNS: Temperature 36.9, pulse rate 73, respirations 18, blood pressure 105/69, pulse oximetry 97%. GENERAL: The patient is alert, awake, oriented x 3. HEENT: Pupils are equal, round, reactive to light and accommodation. Mucous membranes are moist. There is no congestion. LUNGS: Clear to auscultation bilaterally. CARDIOVASCULAR: Rate and rhythm regular, S1, S2 present. ABDOMEN: Soft. There is no distention, guarding or rigidity. EXTREMITIES: Warm, well perfused. There is no edema. SKIN: Warm and dry. LABORATORY DATA: Hemoglobin 12.8, hematocrit 35.8, platelet count ____, WBC count ____. Sodium 138, potassium 4.0, chloride 104, bicarbonate 28, BUN 8, [place] [address] CONSULTATION Name: INDRA BEGUM LYLA Room: [address] IN [facility]#: [id number] Admission: 02/21/20 Attend Phys: Pebbles Lara Discharge: Date of : 59 Report #: [id number] creatinine 0.9, total bilirubin 0.5, AST 37, ALT 36, alkaline phosphatase 72. IMAGING: CT abdomen and pelvis, Gallbladder surgically absent. Prominence of common bile duct distal common bile duct appears to be 3 small dense structures likely representing stones, largest one measuring 5 mm. Mild intra and extrahepatic biliary ductal dilation, no evidence of pancreatitis. ASSESSMENT AND PLAN: Pleasant 64-year-old gentleman presenting with abdominal pain, found to have common bile duct stones on CT scan. We will proceed with endoscopic retrograde cholangiopancreatography, sphincterotomy and stone extraction. Further recommendations can be done after the test. By: [id number] Montemayor MD /nt
--- NOTE | ~2020-02-21 | EMS ---
[place] [address] EMS Patient Care Report Name: INDRA BEGUM [facility] [id number] Admission: 02/21/20 Attend Phys: Discharge: Date of : 59 Report #: [id number] THIS REPORT FOR: //name// Report Transmitted: 02/21/2020 18:59 EMS Care Summary [facility] Incident [id number] @ 02/21/2020 17:48 Incident Location [address] [place] [address] Patient INDRA BEGUM Male, 64 Years 1955 Patient Address [address] [place] [address] Patient History Chronic Obstructive Pulmonary Disease (COPD),Atrial Fibrillation,Alcohol Abuse, Patient Allergies Penicillin allergy, Chief Complaint Diarrhea Disposition Transported No Lights/[place] Dispatch Reason Abdominal Pain/Problems Transported To [facility] Narrative Dispatch: [facility] was dispatched to a local residence for a patient with abdominal pain. [facility] responded from the station, but was delayed going en route due to taking COVID-19 isolation precautions since there was positive screening questions. [address] [address] EMS Patient Care Report Name: INDRA BEGUM LYLA Room: [facility]#: [id number] Admission: 02/21/20 Attend Phys: Discharge: Date of : 59 Report #: [id number] Chief Complaint: Upon arrival to the scene, the patient, (Indra Begum) was found seated upright on his couch. He stated that he has had diarrhea for six days and just couldn't take it anymore. He stated that he was at [facility] for a couple days for the same thing, but he stated that they did not diagnose him with anything. Indra stated he was also having some abdominal cramping. History of Present Illness: Indra goes to the hospital frequently for the same issue, and reportedly, he often does not get diagnosed with anything. Indra is an everyday smoker, but denies drinking alcohol anymore. Indra stated that he does not know why he did not receive a diagnoses from his last trip to the hospital, but he is tired of feeling the way he does. Indra stated that he did not attempt to take anything for the pain or the cramping. Assessment; Primary Assessment - Indra had a patent airway, his respiratory effort was not noted to be labored, pulses were equal and present. His skin was pink, warm, and dry. No disability was noted. Secondary Assessment - See assessment section for further information. Reason for Ambulance Transport: Indra felt the desire for transport to the hospital. Treatments: Assessment was performed. Vital signs were obtained. IV access was attempted twice and unsuccessful. 3-lead EKG was obtained showing a sinus rhythm. Summary of Call: Indra was taken to the ambulance and loaded without incident. Non-emergency transport to the hospital began. During transport, no changes in condition were noted. Report was called to the receiving facility. Upon arrival to the hospital, Indra was unloaded and taken into the hospital. He was transferred to the bed, report was given to nursing staff, signatures were obtained, and patient care was transferred. Initial Vitals @18:20P: 82,R: 20,BP: 108/64,Pain: 7/10,GCS: 15,Glucose: 89,SpO2: 94,Revised Trauma: 12, @18:15P: 100,R: 16,Pain: 7/10,GCS: 15,SpO2: 95, @18:40P: 116,R: 16,BP: 116/81,Pain: 7/10,GCS: 15,SpO2: 98,Revised Trauma: 12, @18:50P: 111,R: 16,BP: 104/62,GCS: 15,SpO2: 100,Revised Trauma: 12, [place] [address] EMS Patient Care Report Name: INDRA BEGUM LYLA Room: [facility]#: [id number] Admission: 02/21/20 Attend Phys: Discharge: Date of : 59 Report #: [id number] Assessments @18:31MENTAL:Person Oriented,Time Oriented,Place Oriented,Event Oriented,SKIN:HEENT:LUNG SOUNDS:General: Diarrhea,Left Lower: Tenderness,Left Upper: Tenderness,Right Lower: Tenderness,Right Upper: Tenderness,ABDOMEN:General: Diarrhea,Left Lower: Tenderness,Left Upper: Tenderness,Right Lower: Tenderness,Right Upper: Tenderness,PELVIS//GI:EXTREMITIES:Capillary Refill: Right Upper: < 2 Sec,PULSE:Radial: 2+ Normal,NEURO:@18:50MENTAL:Event Oriented,Person Oriented,Time Oriented,Place Oriented,SKIN:HEENT:Eyes: Left Pupil: 3-mm,Eyes: Right Pupil: 3-mm,LUNG SOUNDS:Left Upper: Tenderness,Right Lower: Tenderness,Right Upper: Tenderness,Left Lower: Tenderness,General: No Abnormalities,ABDOMEN:Left Upper: Tenderness,Right Lower: Tenderness,Right Upper: Tenderness,Left Lower: Tenderness,General: No Abnormalities,PELVIS//GI:EXTREMITIES:PULSE:NEURO: Impression Diarrhea Procedures @18:30ALS AssessmentResponse: UnchangedSucceeded@18:30Normal Saline (.9% NaCl) 0cc (20 ga) Site: Forearm-LeftResponse: UnchangedFailed@18:30Normal Saline (.9% NaCl) 0cc (20 ga) Site: Forearm-RightResponse: UnchangedFailed Timeline 17:48,Call Received 17:48,Dispatched 17:54,En Route 18:04,On Scene 18:04,At Patient 18:15,BP: / M,PULSE: 100,RR: 16 R,SPO2: 95 Ox,ETCO2: ,BG: ,PAIN: 7,GCS: 15, 18:19,Depart Scene 18:20,BP: 108/64 M,PULSE: 82,RR: 20 R,SPO2: 94 Ox,ETCO2: ,B,PAIN: 7,GCS: 15, 18:30,ALS Assessment,Response: UnchangedSucceeded, 18:30,Normal Saline (.9% NaCl) 0cc 20 ga Site: Forearm-Left,Response: UnchangedFailed, 18:30,Normal Saline (.9% NaCl) 0cc 20 ga Site: Forearm-Right,Response: UnchangedFailed, 18:40,BP: 116/81 M,PULSE: 116,RR: 16 R,SPO2: 98 Ox,ETCO2: ,BG: ,PAIN: 7,GCS: 15, 18:50,BP: 104/62 M,PULSE: 111,RR: 16 R,SPO2: 100 Ox,ETCO2: ,BG: ,PAIN: ,GCS: 15, 18:53,At Destination 19:55,[place] [address] EMS Patient Care Report Name: KELINDRA PINTO LYLA Room: [facility]#: [id number] Admission: 02/21/20 Attend Phys: Discharge: Date of : 59 Report #: [id number] Disclaimer v1.1 Copyright 2020 [employer] This EMS Care Summary contains data elements from the applicable legal record (which may be displayed differently). It is designed to provide pertinent information for the following purposes: continuity of care, clinical quality, and state data reporting. The complete legal record is available to ED staff and administrators of the receiving hospital in [employer]'s Patient Tracker. All data is provided "as is."
--- NOTE | ~2020-02-21 | PROC ---
[address] [address] PROCEDURE REPORT Name: INDRA BEGUM Room: [address] IN M.R.#: [id number] Admission: 02/21/20 Attend Phys: Pebbles Lara Discharge: 02/25/20 Date of : 59 Report #: [id number] THIS REPORT FOR: //name// cc: Jose Chang MD, Matthew D MD ~ THIS REPORT FOR: //name// For GI report, please see the Provation report in Perceptive 7 content. By: 0659Medical Records Staff XUAN /RONI
[~2020-02-21 18:57] MED LIST changes: +ASA81BEC PO
[2020-02-21 19:01] VITALS: BP 116/86
[2020-02-21] MEDS ORDERED: XARELTO20 MG PO (19:16)
[2020-02-21 19:45] LABS: HEMATOCRIT 35.8 % (42.0-52.0); HEMOGLOBIN 12.2 gm/dL (14.0-18.0); MCH 33.5 pg (26.0-34.0); MCHC 34.2 g/dL (28.0-37.0); MCV 97.8 fL (80.0-100.0); MPV 8.1 fl. (7.2-11.1); NUCLEATED RBCS 0 /100WBC; PLATELET COUNT* 118 thou/uL (150-400); RBC 3.66 mil/uL (4.50-6.00); RDW-CV 17.4 % (10.5-14.5); WBC 4.8 thou/uL (4.0-11.0)
[2020-02-21 20:03] LABS: CALCIUM 7.8 mg/dL (8.5-10.1); CREATININE 0.9 mg/dL (0.6-1.3)
[2020-02-21 20:08] LABS: ALBUMIN 3.2 g/dL (3.4-5.0); TOTAL BILIRUBIN 0.5 mg/dL (<0.1-1.0)
[2020-02-21 20:11] LABS: ABSOLUTE EOSINOPHILS 0.8 thou/uL (0.0-0.7); ABSOLUTE LYMPHOCYTES 0.7 thou/uL (0.8-5.3); ABSOLUTE MONOCYTES 0.6 thou/uL (0.0-1.2); ABSOLUTE NEUTROPHILS 2.7 thou/uL (1.6-8.1); ANISOCYTOSIS 1+; PLATELET ESTIMATE DECREASED
[2020-02-21 20:50] LABS: URINE BILIRUBIN NEGATIVE (Negative); URINE BLOOD NEGATIVE (Negative); URINE CLARITY CLEAR; URINE COLOR YELLOW; URINE GLUCOSE-RANDOM NEGATIVE (Negative); URINE KETONES NEGATIVE (Negative); URINE LEUKOCYTES-REFLEX NEGATIVE (Negative); URINE NITRITE-REFLEX NEGATIVE (Negative); URINE PROTEIN NEGATIVE (Negative); URINE UROBILINOGEN 0.2 E.U./dl (0.2-1.0)
[2020-02-21 22:31] VITALS: BP 133/82
[2020-02-21 23:00] VITALS: BP 127/74
[2020-02-22 08:25] VITALS: BP 105/69
--- NOTE | 2020-02-22 14:21 | EKG ---
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 : 1955 Requested By: Anna Treviño Order Number: [id number] MD: Kashmir Bennett Measurements Intervals [place] Rate: 97 P: 66 GA: 190 QRS: -65 QRSD: 81 T: 70 QT: 329 QTc: 418 Interpretive Statements Sinus rhythm Left axis deviation Compared to ECG 09/24/2019 11:06:54 rate has increased Electronically Signed On 02-22-2020 14:19:24 CDT by Kashmir Bennett [email or web address] <ELECTRONICALLY SIGNED> By: Kashmir Bennett MD, [facility] 02/22/20 1419 1922 21 Kashmir Bennett MD, [facility] /EPI
[2020-02-22 16:00] VITALS: BP 142/82
[2020-02-22 21:00] VITALS: BP 127/78
[2020-02-23 04:48] LABS: ABSOLUTE EOSINOPHILS 0.1 thou/uL (0.0-0.7); ABSOLUTE LYMPHOCYTES 0.8 thou/uL (0.8-5.3); ABSOLUTE MONOCYTES 0.5 thou/uL (0.0-1.2); ABSOLUTE NEUTROPHILS 1.9 thou/uL (1.6-8.1); BASOPHILS 0.4 %; EOSINOPHILS 2.6 %; HEMATOCRIT 32.1 % (42.0-52.0); LYMPHOCYTES 23.4 %; MCHC 34.3 g/dL (28.0-37.0); MCV 99.1 fL (80.0-100.0); MONOCYTES 14.3 %; MPV 8.5 fl. (7.2-11.1); NUCLEATED RBCS 0 /100WBC; PLATELET COUNT* 107 thou/uL (150-400); POLYS 59.3 %; RBC 3.24 mil/uL (4.50-6.00); RDW-CV 17.1 % (10.5-14.5); WBC 3.3 thou/uL (4.0-11.0)
[2020-02-23 04:59] LABS: CALCIUM 7.1 mg/dL (8.5-10.1); CREATININE 0.7 mg/dL (0.6-1.3); POTASSIUM 3.8 mmol/L (3.5-5.1)
[2020-02-23 07:21] VITALS: BP 109/67
[2020-02-23 08:00] LABS: ALBUMIN 2.6 g/dL (3.4-5.0); DIRECT BILIRUBIN 0.1 mg/dL (<0.1-0.3); TOTAL BILIRUBIN 0.2 mg/dL (<0.1-1.0); TOTAL PROTEIN 5.9 g/dL (6.4-8.2)
[2020-02-23 13:13] VITALS: BP 129/79
[2020-02-23 16:00] VITALS: BP 95/68
[2020-02-23 19:35] VITALS: BP 116/80
[2020-02-24 00:20] VITALS: BP 128/80
[2020-02-24 03:42] LABS: ABSOLUTE LYMPHOCYTES 1.4 thou/uL (0.8-5.3); ABSOLUTE MONOCYTES 0.6 thou/uL (0.0-1.2); ABSOLUTE NEUTROPHILS 2.3 thou/uL (1.6-8.1); BASOPHILS 0.5 %; EOSINOPHILS 18.5 %; HEMATOCRIT 32.2 % (42.0-52.0); LYMPHOCYTES 25.8 %; MCH 33.4 pg (26.0-34.0); MCV 98.2 fL (80.0-100.0); MONOCYTES 11.6 %; NUCLEATED RBCS 0 /100WBC; PLATELET COUNT* 145 thou/uL (150-400); POLYS 43.6 %; RBC 3.28 mil/uL (4.50-6.00); RDW-CV 17.3 % (10.5-14.5); WBC 5.3 thou/uL (4.0-11.0)
[2020-02-24 03:56] LABS: PREALBUMIN 12.4 mg/dL (18.0-35.7)
[2020-02-24 04:08] LABS: ALBUMIN 2.5 g/dL (3.4-5.0); CALCIUM 6.7 mg/dL (8.5-10.1); CREATININE 0.7 mg/dL (0.6-1.3); POTASSIUM 3.2 mmol/L (3.5-5.1); TOTAL BILIRUBIN 0.2 mg/dL (<0.1-1.0); TOTAL PROTEIN 5.6 g/dL (6.4-8.2)
[2020-02-24 05:07] LABS: INR 1.1; PROTIME 11.3 Seconds (9.20-11.50)
[2020-02-24 05:20] LABS: ESR (SEDRATE) 3 mm/hr (0-20)
[2020-02-24 07:40] VITALS: BP 133/93
[2020-02-24 14:08] LABS: IgA 527 mg/dL (61-437); IgG 727 mg/dL (603-1613); IgM 55 mg/dL (20-172)
[2020-02-24 16:00] VITALS: BP 118/80
[2020-02-24 20:00] VITALS: BP 121/78
[2020-02-25] VITALS: BP 123/78
[2020-02-25 04:00] VITALS: BP 137/86
[2020-02-25 05:56] LABS: HEPATITIS B SURFACE AG Negative (Negative)
[2020-02-25 07:50] VITALS: BP 112/78
[2020-02-25 10:28] VITALS: BP 112/78
== END 2020-02-25 14:20 | disposition home or self-care (01) | DRG 444 ==
LOC: M.ERS 18:57 → M.TBA-ER 21:11 → M.ORTHSURG 21:11
PROVIDERS: Internal Medicine; Internal Medicine Gastroenterology; Physician Assistant; ADMIT Internal Medicine
PROC: 0F7D8DZ Dilation of Pancreatic Duct with Intraluminal Device, Via Natural or Artificial Opening Endoscopic (ICD-10-PCS; 2020-02-22)
PROC: 0FPD8DZ Removal of Intraluminal Device from Pancreatic Duct, Via Natural or Artificial Opening Endoscopic (ICD-10-PCS; principal; 2020-02-24)
PROC: 0FC98ZZ Extirpation of Matter from Common Bile Duct, Via Natural or Artificial Opening Endoscopic (ICD-10-PCS; principal; 2020-02-24)
PROC: 0F798ZZ Dilation of Common Bile Duct, Via Natural or Artificial Opening Endoscopic (ICD-10-PCS; principal; 2020-02-24)
DX: K80.50 Calculus of bile duct without cholangitis or cholecystitis without obstruction (principal); E43 Unspecified severe protein-calorie malnutrition; Z68.1 Body mass index [BMI] 19.9 or less, adult; F32.9 Major depressive disorder, single episode, unspecified; F41.9 Anxiety disorder, unspecified; F17.210 Nicotine dependence, cigarettes, uncomplicated; I10 Essential (primary) hypertension; I48.91 Unspecified atrial fibrillation; N40.0 Benign prostatic hyperplasia without lower urinary tract symptoms; K21.0 Gastro-esophageal reflux disease with esophagitis; K22.0 Achalasia of cardia; F10.21 Alcohol dependence, in remission; R13.14 Dysphagia, pharyngoesophageal phase; Z79.899 Other long term (current) drug therapy; Z88.0 Allergy status to penicillin; Z91.041 Radiographic dye allergy status; Z79.01 Long term (current) use of anticoagulants; Z90.49 Acquired absence of other specified parts of digestive tract

== ENCOUNTER 2020-03-27 07:26 | Inpatient (IN) | payer OTHER ==
[~2020-03-27] VITALS: Ht 182.9 cm; Wt 67.6 kg
--- NOTE | ~2020-03-27 | EMS ---
[place] [address] EMS Patient Care Report Name: INDRA BEGUM Room: [facility] Gregorio#: [id number] Admission: 03/27/20 Attend Phys: Discharge: Date of : 59 Report #: [id number] THIS REPORT FOR: //name// Report Transmitted: 03/27/2020 07:42 EMS Care Summary [facility] Incident [id number] @ 03/27/2020 06:34 Incident Location [address] [place] [address] Patient INDRA BEGUM Male, 65 Years 1955 Patient Address [address] [place] [address] Patient History Chronic Obstructive Pulmonary Disease (COPD),Atrial Fibrillation,Alcohol Abuse, Patient Allergies Penicillin allergy,Iodine, Patient Medications Other, Chief Complaint Abdominal discomfort Disposition Transported No Lights/[place] Dispatch Reason Sick Person Transported To [facility] Narrative Dispatched: Med 1 was toned for a male experiencing gallbladder pain. Chief Complaint/Condition: The patient stated that he has had nausea, vomiting, and diarrhea develop 7 days ago along with abdominal discomfort[place] [address] EMS Patient Care Report Name: INDRA BEGUM LYLA Room: [facility]#: [id number] Admission: 03/27/20 Attend Phys: Discharge: Date of : 59 Report #: [id number] complaint today was the abdominal comfort. He was found seated in his living room without any distress. Strong odor of alcohol noted on patient. He admitted to alcohol use. History of Present Illness/Injury: According to the patient, he had been experiencing pain again in the area where his gallbladder was removed along with GI symptoms for one week. The patient admitted to alcohol use, cigarette smoking, and soda consumption without any food or water intake. Patient stated he is, "drinking for the pain." He had no other complaints. Assessment: The patient was a male in his 60's, A/Ox4, GCS 15. Airway patent, breathing clear, equal, and regular. CMS present x4. Skin pink, warm, and dry. See section for further. Reason for Ambulance: The patient requested transport to [place] for further evaluation. Treatments: 12 lead/EKG showing sinus with artifact. IV therapy attempted without success. Summary: Med 1 arrived on scene and made patient contact. Assessment performed. The patient was assisted onto the stretcher, secured, and placed in Med 1. Transport initiated and vitals/12 lead performed en route. The patient did not present with any distress throughout entire contact despite reports of sharp abdominal pain (x7 days) where his gallbladder used to be located. The patient did admit to being an alcoholic and wanting help for his dependence. IV attempted without success. Report called to [place] with no further orders. The patient was delivered to ED room 11 upon arrival and sheet transferred to bed. Signatures obtained and paperwork gathered. Med 1 cleared the facility and returned. Initial Vitals @07:00GCS: 15, @06:59R: 18,BP: 130/84,GCS: 15,Revised Trauma: 12, @07:12P: 93,R: 22,BP: 126/84,GCS: 15,SpO2: 93,Revised Trauma: 12, @06:51P: 83,R: 20,GCS: 15,SpO2: 94, @07:17P: 83,R: 18,BP: 126/84,GCS: 15,SpO2: 94,Revised Trauma: 12, @07:06R: 20,BP: 125/85,GCS: 15,Glucose: 60,SpO2: 91,Revised Trauma: 12, Assessments @06:44MENTAL:Time Oriented,Person Oriented,Place Oriented,Event Oriented,SKIN:HEENT:LUNG SOUNDS:General: Nausea,General: Diarrhea,Left Lower: Other,Left Lower: Tenderness,ABDOMEN:General: Nausea,General: Diarrhea,Left Lower: Other,Left Lower: Tenderness,PELVIS//GI:EXTREMITIES:PULSE:Radial: 2+ Normal,NEURO:@07:10MENTAL:Event Oriented,Place Oriented,Time Oriented,Person Oriented,SKIN:HEENT:LUNG SOUNDS:Left Lower: Other,ABDOMEN:Left Lower: [place] [address] EMS Patient Care Report Name: INDRA BEGUM LYLA [id number] Admission: 03/27/20 Attend Phys: Discharge: Date of : 59 Report #: [id number] Other,PELVIS//GI:EXTREMITIES:Right Leg: Other,PULSE:Radial: 2+ Normal,NEURO: Impression Alcohol use Procedures @07:08Saline Lock 0cc (20 ga) Site: Forearm-LeftResponse: ImprovedSucceeded@06:44ALS AssessmentResponse: UnchangedSucceeded@07:0012-Lead ECGResponse: UnchangedSucceeded Timeline 06:33,Call Received 06:34,Dispatched 06:37,En Route 06:43,On Scene 06:44,At Patient 06:44,ALS Assessment,Response: UnchangedSucceeded, 06:49,Depart Scene 06:51,BP: / M,PULSE: 83,RR: 20 R,SPO2: 94 Ox,ETCO2: ,BG: ,PAIN: ,GCS: 15, 06:59,BP: 130/84 M,PULSE: ,RR: 18 R,SPO2: Ox,ETCO2: ,BG: ,PAIN: ,GCS: 15, 07:00,12-Lead ECG,Response: UnchangedSucceeded, 07:00,BP: / M,PULSE: ,RR: R,SPO2: Ox,ETCO2: ,BG: ,PAIN: ,GCS: 15, 07:06,BP: 125/85 M,PULSE: ,RR: 20 R,SPO2: 91 Ox,ETCO2: ,B,PAIN: ,GCS: 15, 07:08,Saline Lock 0cc 20 ga Site: Forearm-Left,Response: ImprovedSucceeded, 07:12,BP: 126/84 M,PULSE: 93,RR: 22 R,SPO2: 93 Ox,ETCO2: ,BG: ,PAIN: ,GCS: 15, 07:17,BP: 126/84 M,PULSE: 83,RR: 18 R,SPO2: 94 Ox,ETCO2: ,BG: ,PAIN: ,GCS: 15, 07:22,At Destination 08:11,Call Closed Disclaimer v1.1 Copyright 2020 [employer] This EMS Care Summary contains data elements from the applicable legal record (which may be displayed differently). It is designed to provide pertinent information for the following purposes: continuity of care, clinical quality, and state data reporting. The complete legal record is available to ED staff and administrators of the receiving hospital in [facility]'s Patient Tracker. All data is provided "as is."
[2020-03-27 07:26] VITALS: BP 121/78
[~2020-03-27 07:26] MED LIST changes: +XARELTO20 MG PO
[2020-03-27 07:49] LABS: HEMATOCRIT 41.6 % (42.0-52.0); HEMOGLOBIN 14.2 gm/dL (14.0-18.0); MCH 32.6 pg (26.0-34.0); MCHC 34.1 g/dL (28.0-37.0); MCV 95.5 fL (80.0-100.0); MPV 7.7 fl. (7.2-11.1); NUCLEATED RBCS 0 /100WBC; PLATELET COUNT* 69 thou/uL (150-400); RBC 4.36 mil/uL (4.50-6.00); RDW-CV 18.1 % (10.5-14.5)
[2020-03-27 08:06] LABS: CALCIUM 8.1 mg/dL (8.5-10.1); CREATININE 0.8 mg/dL (0.6-1.3); POTASSIUM 3.5 mmol/L (3.5-5.1)
[2020-03-27 08:10] LABS: ALBUMIN 3.5 g/dL (3.4-5.0); TOTAL BILIRUBIN 0.7 mg/dL (<0.1-1.0); TOTAL PROTEIN 8.2 g/dL (6.4-8.2)
[2020-03-27 08:53] LABS: ABSOLUTE EOSINOPHILS 0.8 thou/uL (0.0-0.7); ABSOLUTE LYMPHOCYTES 1.6 thou/uL (0.8-5.3); ABSOLUTE MONOCYTES 0.2 thou/uL (0.0-1.2); ABSOLUTE NEUTROPHILS 2.6 thou/uL (1.6-8.1); PLATELET ESTIMATE ADEQUATE
[2020-03-27 12:16] LABS: URINE BLOOD NEGATIVE (Negative); URINE CLARITY CLEAR; URINE COLOR YELLOW; URINE GLUCOSE-RANDOM NEGATIVE (Negative); URINE KETONES 2+ (Negative); URINE LEUKOCYTES-REFLEX NEGATIVE (Negative); URINE NITRITE-REFLEX NEGATIVE (Negative); URINE PROTEIN TRACE (Negative); URINE SPECIFIC GRAVITY 1.025 (1.005-1.030); URINE UROBILINOGEN 0.2 E.U./dl (0.2-1.0)
[2020-03-27 12:17] LABS: ICTOTEST (BILI CONFIRMATORY) Negative (Negative); URINE BILIRUBIN 2+ (Negative)
[2020-03-27 12:31] LABS: AMP/METHAMP Negative (Negative); BARBITURATES Negative (Negative); BENZODIAZEPINES Negative (Negative); COCAINE Negative (Negative); METHADONE Negative (Negative); OPIATES Negative (Negative); PCP Negative (Negative); THC Negative (Negative)
[2020-03-27 15:25] VITALS: BP 110/75
[2020-03-27 15:40] VITALS: BP 126/80
--- NOTE | 2020-03-27 17:07 | EKG ---
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 : 1955 Requested By: Jose Bowling Order Number: [id number] MD: Rafa Barker Measurements Intervals [place] Rate: 95 P: 70 CA: 196 QRS: 36 QRSD: 102 T: 69 QT: 385 QTc: 484 Interpretive Statements Sinus rhythm Low voltage, extremity and precordial leads Nonspecific T abnrm, anterolateral leads Borderline prolonged QT interval Compared to ECG 02/21/2020 19:22:59 Low QRS voltage now present ST (T wave) deviation now present Myocardial infarct finding now present Electronically Signed On 03-27-2020 17:06:10 CDT by Rafa Barker [email or web address] <ELECTRONICALLY SIGNED> By: Rafa Barker MD, [facility] 03/27/20 1706 5 5 Rafa Barker MD, [facility] /EPI
[2020-03-27 19:50] VITALS: BP 126/73
[2020-03-28 00:32] VITALS: BP 105/69
[2020-03-28 04:10] VITALS: BP 135/77
--- NOTE | 2020-03-28 04:10 | NUR ---
ASSUMED CARE OF PT AT 1900. PT IS ALERT AND ORIENTED. VSS. PERRLA. UP WITH 1 ASSIST. PT IS IN SINUS RYTHM ON THE TELEMETRY. PT IS RESTING COMFORTABLY IN BED. RESPIRATIONS ARE EVEN AND NONLABORED. WILL CONTINUE TO MONITOR PT.
--- NOTE | 2020-03-28 07:42 | NUR ---
Nutrition: consult for malnutrition; not noted in H&P. Pt is underweight with BMI 18.2. Wt is within UBW range of 135-140 lb. LFT's high, albumin WNL. Meds reviewed. Assess at mild risk, will send Ensure Clear while on clear liquid diet; f/u 04/01.
[2020-03-28 08:00] VITALS: BP 141/87
[2020-03-28 12:05] VITALS: BP 85/52
[2020-03-28 17:31] VITALS: BP 100/64
--- NOTE | 2020-03-28 19:00 | NUR ---
ASSUMED PT CARE AT 0730. ASSESSMENT COMPLETED CHARTED. PT SLEEPING MOST OF THE DAY. C/O IN LUQ OF ABD AND GAVE PRN PAIN MEDS PER EMAR. PT REQUESTING ATIVAN FOR ANXIETY ONCE TODAY. PT HAD A COUPLE LOOSE BOWEL MOVEMENTS. PT RESTING IN BED AT THIS TIME. WILL CONTINUE TO MONITOR.
[2020-03-28 20:00] VITALS: BP 88/59
[2020-03-29] VITALS: BP 99/60
[2020-03-29 04:00] VITALS: BP 115/74
[2020-03-29 04:49] LABS: HEMATOCRIT 34.4 % (42.0-52.0); MCH 33.6 pg (26.0-34.0); MCHC 34.4 g/dL (28.0-37.0); MCV 97.8 fL (80.0-100.0); MPV 8.8 fl. (7.2-11.1); RBC 3.51 mil/uL (4.50-6.00); RDW-CV 17.7 % (10.5-14.5); WBC 3.4 thou/uL (4.0-11.0)
[2020-03-29 05:07] LABS: HEMOGLOBIN 11.8 gm/dL (14.0-18.0)
[2020-03-29 05:11] LABS: ALBUMIN 2.5 g/dL (3.4-5.0); CALCIUM 6.5 mg/dL (8.5-10.1); CREATININE 0.7 mg/dL (0.6-1.3); POTASSIUM 3.4 mmol/L (3.5-5.1); TOTAL BILIRUBIN 0.5 mg/dL (<0.1-1.0); TOTAL PROTEIN 5.9 g/dL (6.4-8.2)
[2020-03-29 05:15] LABS: MAGNESIUM 0.7 mg/dL (1.8-2.4)
--- NOTE | 2020-03-29 06:52 | NUR ---
Pt complains of abdominal pain, pain meds given with partial relief (see mar). Pt CIWA scored 3. Pt received 1x ativan PO per pt request, states he is anxious. Pt sinus rhythm, 1st degree on tele. Around 0500, lab called for critical result, platelet 49, DR fashion show director notified. Pt critical magnesium 0.7, Pt has ongoing electrolyte replacement per protocol. Will continue to monitor.
[2020-03-29 07:30] VITALS: BP 100/58
[2020-03-29 11:47] VITALS: BP 109/72
[2020-03-29 13:25] LABS: MAGNESIUM 2.6 mg/dL (1.8-2.4); POTASSIUM 3.9 mmol/L (3.5-5.1)
[2020-03-29 16:26] VITALS: BP 114/70
--- NOTE | 2020-03-29 19:02 | NUR ---
PT.KNOWN FROM PREVIOUS ADMISSIONS. NORMALLY LIVES ALONE. STATED HE HAS BEEN STAYING WITH HIS SON,MAC. LISTED HIS ADDRESS [address] [place] [address]. SAID ABD.PAIN AND NAUSEA GOT WORSE AGAIN TODAY. PT.USES A WALKER TO AMBULATE. DRIVES,SHOPS. ADMITS TO DRINKING ALCOHOL. CM WILL FOLLOW.
[2020-03-29 20:00] VITALS: BP 120/69
[2020-03-30] VITALS: BP 139/92
[2020-03-30 03:51] LABS: HEMATOCRIT 35.4 % (42.0-52.0); HEMOGLOBIN 12.2 gm/dL (14.0-18.0); MCH 33.7 pg (26.0-34.0); MCHC 34.6 g/dL (28.0-37.0); MCV 97.4 fL (80.0-100.0); MPV 9.3 fl. (7.2-11.1); RBC 3.64 mil/uL (4.50-6.00); RDW-CV 17.7 % (10.5-14.5); WBC 5.6 thou/uL (4.0-11.0)
[2020-03-30 04:00] VITALS: BP 129/89
[2020-03-30 04:14] LABS: ALBUMIN 2.5 g/dL (3.4-5.0); CALCIUM 7.4 mg/dL (8.5-10.1); CREATININE 0.7 mg/dL (0.6-1.3); MAGNESIUM 1.5 mg/dL (1.8-2.4); POTASSIUM 3.9 mmol/L (3.5-5.1); TOTAL PROTEIN 5.8 g/dL (6.4-8.2)
--- NOTE | 2020-03-30 06:50 | NUR ---
Pt aox3, disoriented to time, behavior is impulsive. Running SR w/ occasional PACs. Respirations are clear on auscultation, even and unlabored on room air. Pt has had multiple watery BMs throughout night. Stool sample was sent to lab to r/o c-diff. Per Dr. Herzog 4mg loperamide was ordered and administered. Mg was low at 1.5 this AM and PO replacement was administered with morning meds. Pt is medically stable at this time.
[2020-03-30 07:30] VITALS: BP 131/83
[2020-03-30 16:50] VITALS: BP 103/64
[2020-03-30 20:00] VITALS: BP 123/78
--- NOTE | 2020-03-31 06:24 | NUR ---
Shift uneventful. Per Dr. Johnson, rectal tube was inserted and probiotic was ordered to address frequent diarrhea x4 days and excoriation. Test result for c-diff is still pending. Pt is aox4, but still intermittently impulsive. M/S status, S1S2 on auscultation. Respirations are even and unlabored on room air. Pt is medically stable at this time.
[2020-03-31 08:00] VITALS: BP 150/100
[2020-03-31 12:18] VITALS: BP 77/51
--- NOTE | 2020-03-31 15:01 | NUR ---
I ASSUMED CARE OF THE PATIENT AT 0700. HE IS ALERT AND ORIENTED X4 AND IS ON BEDREST. BED ALARM IS ON. BED IS IN THE LOW LOCKED POSITION AND CALL LIGHT IS IN REACH. HOURLY ROUNDING IS COMPLETE AND PATIENT NEEDS ARE MET. HE IS TOLERATING FOOD/DRINK. HE USES HIS URINAL. CIWA WAS 7 AND PRN MEDS WERE USED. BARRIER CREAM WAS APPLIED AND RECTAL TUBE IS IN PLACE. BLOOD SUGAR IS MONITORED. PATIENT WAS CHANGED TO TELE STATUS. REPORT GIVEN TO TRACY AT 1400.
[2020-03-31 15:59] VITALS: BP 118/64
[2020-03-31 20:00] VITALS: BP 124/71
[2020-04-01] VITALS (7 sets, daily range): BP systolic 78–168; BP diastolic 51–86
[2020-04-01 05:58] LABS: HEMATOCRIT 33.4 % (42.0-52.0); HEMOGLOBIN 11.4 gm/dL (14.0-18.0); MCH 33.4 pg (26.0-34.0); MCHC 34.1 g/dL (28.0-37.0); MCV 97.8 fL (80.0-100.0); MPV 8.4 fl. (7.2-11.1); RBC 3.42 mil/uL (4.50-6.00); RDW-CV 17.5 % (10.5-14.5); WBC 5.8 thou/uL (4.0-11.0)
[2020-04-01 06:09] LABS: ALBUMIN 2.5 g/dL (3.4-5.0); CALCIUM 7.9 mg/dL (8.5-10.1); CREATININE 0.9 mg/dL (0.6-1.3); MAGNESIUM 1.5 mg/dL (1.8-2.4); POTASSIUM 3.7 mmol/L (3.5-5.1); TOTAL BILIRUBIN 0.5 mg/dL (<0.1-1.0); TOTAL PROTEIN 5.8 g/dL (6.4-8.2)
--- NOTE | 2020-04-01 09:17 | NUR ---
ASSUMED CARE OF PATIENT THIS AM AT 0730. PATIENT IS ALERT AND ORIENTED X 4. HE C/O LEFT UPPER ABD PAIN. TELE SHOWS NSR. HE CONTINUES TO HAVE DIARRHEA. PATIENT STATES HE FEELS THAT IT HAS DECREASED. TELE SHOWS CONTINUED SR. HE HAS BEEN ENCOURAGED TO TURN Q 2 HR. PATIENT KEPT NPO FOR ORDERED TESTS.
--- NOTE | 2020-04-01 14:25 | NUR ---
WOUND NURSE: PATIENT SEEN TO ADDRESS REDDENED BUTTOCKS, NO SKIN BREAKDOWN NOTE AT TIME OF THIS ASSESSMENT. PRESENTS A PINKISH RED MACULAR RASH INVOLVING BILATERAL BUTTOCKS. SUSPECT INCONTINENCE ASSOCIATED DERMATITIS RESULTING FROM BOWEL INCONTINENCE. PATIENT HAS A RECTAL TUBE IN PLACE. APPLIED PHYTOPLEX AF MOISTURE BARRIER OINTMENT. PATIENT INSTUCTED ON MEASURES TO AVOID BREAKDOWN AND PROMOTE HEALING OF RASH. PATIENT STATES HE UNDERSTANDS.
[2020-04-02] VITALS: BP 124/75
[2020-04-02 04:36] VITALS: BP 132/81
--- NOTE | 2020-04-02 06:36 | NUR ---
ASSUMED CARE OF PT AFTER REPORT AT 1930. PT A&OX4. VSS. PHYSICAL ASSESSMENT COMPLETED AND CHARTED. PT ON O2 AT 2L NC. PT TRACING SR ON TELE. PT COMPLANIED OF ABDOMINAL PAIN-MED GIVEN PER DEC. PT BP WAS 78/51-DR SMITH MADE AWARE WITH ORDERS MADE. PT ABLE TO SLEEP WELL ON BED. CALL LIGHT WITHIN REACH.
[2020-04-02 08:00] VITALS: BP 124/74
--- NOTE | 2020-04-02 08:00 | NUR ---
ASSUMED CARE OF PATIENT THIS MORNING FROM NIGHT NURSE. PT IS DOING WITH NO CO OF PAIN OR NAUSEA AT THIS TIME. HE WAS EDUCATED ON FALL SAFETY AND USING THE CALL LIGHT FOR ASSISTANCE. WILL CONTINUE TO MONITOR. BED IN LOWEST POSITION AND CALL LIGHT IN REACH.
--- NOTE | 2020-04-02 11:04 | NUR ---
cm sent referral to tam at [facility]. [phone].
[2020-04-02 11:35] VITALS: BP 82/59
[2020-04-02 16:45] VITALS: BP 136/83
[2020-04-02 20:00] VITALS: BP 105/71
[2020-04-03] VITALS (7 sets, daily range): BP systolic 114–138; BP diastolic 41–90
--- NOTE | 2020-04-03 06:51 | NUR ---
ASSUMED CARE OF PT AFTER REPORT AT 1930. PT A&OX4. VSS. PHYSICAL ASSESSMENT COMPLETED AND CHARTED. PT ON RA. PT TRACING SR ON TELE. PT TURNED TO SIDES. PT COMPLAINED OF ABDOMINAL PAIN-MED GIVEN PER MAR. PT ABLE TO SLEEP WELL ON BED. CALL LIGHT WITHIN REACH.
--- NOTE | 2020-04-03 07:50 | NUR ---
ASSUMED CARE OF PATIENT THIS MORNING FROM NIGHT NURSE. PT IS DOING WELL WITH MILD CO OF PAIN WELL CONTROLLED WITH PO PAIN MEDICATIONS. HE WAS EDUCATED ON FALL SAFETY AND USING THE CALL LIGHT FOR ASSISTANCE. BED IN LOWEST POSITION AND CALL LIGHT IN REACH. WILL CONTINUE TO MONITOR.
--- NOTE | 2020-04-03 09:50 | NUR ---
CM left message for Marcie at [facility], updated to contact this CM once auth received. Following. [facility] p:[phone]
[2020-04-04] VITALS: BP 138/81
[2020-04-04 08:00] VITALS: BP 128/82
--- NOTE | 2020-04-04 08:00 | NUR ---
ASSUMEDCARE OF PT FROM NIGHT NURSE. PT IS DOING WELL WITH MILD CO OF PAIN AND ANXIETY WELL CONTROLLED WITH PO PAIN MEDICATIONS. HE HAS NO CO OF NAUSEA. HE WAS EDUCATED ON POC, FALL SAFETY AND DISEASE PROCESS. BED IN LOWEST POSITION AND CALL LIGHT IS IN REACH, WILL CONTINUE TO MONITOR.
[2020-04-04 12:00] VITALS: BP 102/61
--- NOTE | 2020-04-04 12:02 | NUR ---
YUMIKO called Marcie with [facility] to follow up on status of referral. Pt referral still pending insurance auth but Marcie hopeful to receive auth today and will inform CM when auth is received. Covid test pending; SW to fax results as soon as received. YUMIKO to continue to follow to assist with finalizing safe dc plan.
[2020-04-04 15:55] VITALS: BP 104/64
[2020-04-04] MEDS ORDERED: AMITRIPTYLINE H25 M4 PO (17:55)
[2020-04-04] MEDS ORDERED: BENTYL 10 MG CA10 MG PO (17:56)
[2020-04-04] MEDS ORDERED: FAMOTIDINE20 MG PO (17:57)
[2020-04-04] MEDS ORDERED: FLORANEX TABLE1 EACH PO (17:57)
[2020-04-04] MEDS ORDERED: ATIVAN1 M1 PO (17:59)
[2020-04-04 18:02] VITALS: BP 104/64
--- NOTE | 2020-04-04 18:45 | NUR ---
PT WAS DISCHARGED TO [facility] WITH WHEELCHAIR VAN. HE WAS GIVEN DISCHARGE INSTRUCTIONS AND A LIST OF HOME MEDICATIONS. I CALLED TO ATTEMPT TO GIVE REPORT MORE THEN 10 TIMES AND EVEN REQUESTED TO SPEAK TO SOMEONE ELSE AND REQUESTED A CALL BACK FROM THE MEME ANSWERING THE PHONE. DID NOT GIVE REPORT.
--- NOTE | 2020-04-21 08:28 | CON ---
[address] [address] CONSULTATION Name: MUMTAZ BEGUMRY LYLA Room: [address]#: [id number] Admission: 03/27/20 Attend Phys: Merly Dunn MD Discharge: 04/04/20 Date of : 59 Report #: [id number] THIS REPORT FOR: //name// cc: Jose Chang MD, Matthew D MD ~ THIS REPORT FOR: //name// CC: Merly Chang DATE OF SERVICE: 03/29/2020 HISTORY OF PRESENT ILLNESS: This is a pleasant 65-year-old gentleman with past medical history significant for COPD, atrial fibrillation on chronic anticoagulation, anxiety, depression and alcohol abuse. The patient was seen previously in the first week of February for choledocholithiasis. The patient presents to the hospital for evaluation of nausea and vomiting. The patient reports generalized abdominal pain, inability to take p.o. The patient also reports that he has begun drinking again. The patient reports about 10-pound weight loss in the last 1 year. He denies any hematemesis, hematochezia or diarrhea. PAST MEDICAL HISTORY: Chronic anticoagulation, atrial fibrillation, COPD, hypertension, depression, anxiety. PAST SURGICAL HISTORY: Left shoulder surgery, cholecystectomy. SOCIAL HISTORY: The patient has half pack per day history of smoking. He reported a remote history of alcohol abuse, but began drinking again, takes about 3 drinks each day 3 times a week. FAMILY HISTORY: Negative for colon cancer or Enrique related neoplasia. REVIEW OF SYSTEMS: A comprehensive 10-point review of systems is negative except for what was mentioned in the HPI. PHYSICAL EXAMINATION: VITAL SIGNS: Temperature 36.7, pulse rate 72, respirations 19, blood pressure 114/70. GENERAL: The patient is alert, awake, oriented x 3. HEENT: Pupils are equal, round, reactive to light and accommodation. Mucous membranes are moist. There is no congestion. LUNGS: Clear to auscultation bilaterally. CARDIOVASCULAR: Rate and rhythm regular, S1, S2 present. ABDOMEN: Soft. There is no distention, guarding or rigidity. EXTREMITIES: Warm, well perfused. [place] [address] CONSULTATION Name: INDRA BEGUM LYLA Room: [address]#: [id number] Admission: 03/27/20 Attend Phys: Merly Dunn MD Discharge: 04/04/20 Date of : 59 Report #: [id number] SKIN: Warm and dry. LABORATORY DATA: Hemoglobin 11.8, hematocrit 34.4, platelet count 49, WBC count 3.4. Sodium 140, potassium 3.9, chloride 104, bicarbonate 31, BUN 8, creatinine 0.7, total bilirubin 0.5, AST 77, ALT 56, alkaline phosphatase 85. IMAGING: Abdomen and pelvis CT fails to demonstrate any inflammatory mass, ascites, bowel obstruction. No acute process, suspicious as infiltration of the liver. ASSESSMENT AND PLAN: 1. This is a 65-year-old gentleman presenting with malaise, nausea, vomiting and loss of appetite. I would recommend getting a gastric emptying test to evaluate this further. The patient may have gastroparesis. 2. Thrombocytopenia. I suspect the patient has long-term liver damage secondary to his alcohol abuse and his thrombocytopenia may be related to underlying cirrhosis. We can continue to monitor ____ platelet count go above 50. I can consider getting a liver biopsy to establish diagnosis. 3. Fatty liver, likely related to alcoholic steatohepatitis, but there is a strong suspicion for underlying cirrhosis. Thank you for this consultation. <ELECTRONICALLY SIGNED> By: Lester Montemayor MD 04/21/20 0828 [id number] Montemayor MD /nt
== END 2020-04-04 18:08 | DRG 897 ==
LOC: M.ERS 07:26 → M.2W 10:21 → M.TBA-ER 10:21 → M.2W 15:58
PROVIDERS: Emergency Medicine Emergency Medical Services; ADMIT Internal Medicine; ATTEND Internal Medicine
DX: F10.229 Alcohol dependence with intoxication, unspecified (principal); E44.0 Moderate protein-calorie malnutrition; K21.9 Gastro-esophageal reflux disease without esophagitis; J44.9 Chronic obstructive pulmonary disease, unspecified; I48.91 Unspecified atrial fibrillation; N40.0 Benign prostatic hyperplasia without lower urinary tract symptoms; M19.90 Unspecified osteoarthritis, unspecified site; E16.2 Hypoglycemia, unspecified; K76.0 Fatty (change of) liver, not elsewhere classified; D69.6 Thrombocytopenia, unspecified; F17.210 Nicotine dependence, cigarettes, uncomplicated; R74.0 Nonspecific elevation of levels of transaminase and lactic acid dehydrogenase [LDH]; Z90.49 Acquired absence of other specified parts of digestive tract; Z88.0 Allergy status to penicillin; Z91.041 Radiographic dye allergy status; Z68.20 Body mass index [BMI] 20.0-20.9, adult; Z20.828 Contact with and (suspected) exposure to other viral communicable diseases

== ENCOUNTER 2020-04-26 04:51 | Inpatient (IN) | payer OTHER ==
[~2020-04-26] VITALS: Ht 182.9 cm; Wt 59.0 kg
--- NOTE | ~2020-04-26 | EMS ---
[place] [address] EMS Patient Care Report Name: INDR[facility] BEGUM [id number] Admission: 04/26/20 Attend Phys: Discharge: Date of : 59 Report #: [id number] THIS REPORT FOR: //name// Report Transmitted: 04/26/2020 05:38 EMS Care Summary [facility] Incident [id number] @ 04/26/2020 04:01 Incident [address] [place] [address] Patient INDRA BEGUM Male, 65 Years 1955 Patient Address [address] [place] [address] Patient History Chronic Obstructive Pulmonary Disease (COPD),Atrial Fibrillation,Alcohol Abuse, Patient Allergies Penicillin allergy,Iodine, Patient Medications Other, Chief Complaint Patient cannot keep any food down. Disposition Transported No Lights/[place] Reason Sick Person Transported To [facility] Narrative Dispatch: [facility] was dispatched to a local residence for a patient who was unable to "keep any of his food down." [facility] responded from the station and arrived [place] [address] EMS Patient Care Report Name: INDRA BEGUM LYLA Room: [facility]#: [id number] Admission: 04/26/20 Attend Phys: Discharge: Date of : 59 Report #: [id number] Chief Complaint: The patient, (Indra Begum) was complaining of diarrhea that started on Wednesday after being constipated. No distress was noted, and there were no life threats present. History of Present Illness: Indra called 911 due to him trying to eat food, but would vomit when he would eat. Indra stated that he was unsure of why this was going on, but he wanted to be evaluated at the hospital. Indra frequently utilizes 911 care and transport for this chronic issue, and waits several days before calling 911. Assessment: Primary Assessment - Indra had a patent airway, his respiratory effort was not noted to be labored. His skin was pink, warm, and dry. Radial pulses were present. No disability was noted. Secondary Assessment - See assessment section for further information. Reason for Ambulance Transport: Indra requested transport to the hospital. Treatments: Assessment was performed. Vital signs were obtained. Summary of Call: Indra was assisted to the cot, he sat down, was covered with a blanket, and all seat belts were applied. He was taken to the ambulance and loaded without incident. Non-emergency transport began. During transport, no changes in patient condition were noted. Report was called to receiving facility. Upon arrival to the receiving facility, Indra was unloaded and taken inside. Report was given to nursing staff, signatures were obtained and patient care was transferred. Initial Vitals @04:18P: 98,R: 16,BP: 140/82,Pain: 0/10,GCS: 15,SpO2: 99,Revised Trauma: 12, Assessments @04:07MENTAL:Person Oriented,Time Oriented,Event Oriented,Place Oriented,SKIN:HEENT:LUNG SOUNDS:General: Diarrhea,ABDOMEN:General: Diarrhea,PELVIS//GI:EXTREMITIES:Capillary Refill: Left Upper: < 2 Sec,PULSE:Radial: 2+ Normal,NEURO:@04:16MENTAL:Place Oriented,Person Oriented,Time Oriented,Event Oriented,SKIN:HEENT:LUNG SOUNDS:General: Diarrhea,ABDOMEN:General: Diarrhea,PELVIS//GI:EXTREMITIES:PULSE:NEURO: [place] [address] EMS Patient Care Report Name: INDRA BEGUM LYLA Room: [facility]#: [id number] Admission: 04/26/20 Attend Phys: Discharge: Date of : 59 Report #: [id number] Diarrhea Procedures @04:19ALS AssessmentResponse: UnchangedSucceeded Timeline 04:01,Call Received 04:01,Dispatched 04:03,En Route 04:07,On Scene 04:07,At Patient 04:14,Depart Scene 04:18,BP: 140/82 M,PULSE: 98,RR: 16 R,SPO2: 99 Ox,ETCO2: ,BG: ,PAIN: 0,GCS: 15, 04:19,ALS Assessment,Response: UnchangedSucceeded, 04:48,At Destination 05:45,Call Closed Disclaimer v1.1 Copyright 2020 [employer] This EMS Care Summary contains data elements from the applicable legal record (which may be displayed differently). It is designed to provide pertinent information for the following purposes: continuity of care, clinical quality, and state data reporting. The complete legal record is available to ED staff and administrators of the receiving hospital in [employer]'s Patient Tracker. All data is provided "as is."
[~2020-04-26 04:51] MED LIST changes: +AMITRIPTYLINE H25 M4 PO; +ATIVAN1 M1 PO; +BENTYL 10 MG CA10 MG PO; +FAMOTIDINE20 MG PO
[2020-04-26 04:53] VITALS: BP 140/77
[2020-04-26 05:29] LABS: ABSOLUTE LYMPHOCYTES 1.4 thou/uL (0.8-5.3); ABSOLUTE MONOCYTES 1.1 thou/uL (0.0-1.2); ABSOLUTE NEUTROPHILS 4.9 thou/uL (1.6-8.1); BASOPHILS 0.6 %; EOSINOPHILS 0.5 %; HEMATOCRIT 32.8 % (42.0-52.0); HEMOGLOBIN 11.3 gm/dL (14.0-18.0); LYMPHOCYTES 18.8 %; MCH 32.8 pg (26.0-34.0); MCHC 34.5 g/dL (28.0-37.0); MCV 95.1 fL (80.0-100.0); MPV 6.5 fl. (7.2-11.1); NUCLEATED RBCS 0 /100WBC; PLATELET COUNT* 256 thou/uL (150-400); POLYS 65.1 %; RBC 3.45 mil/uL (4.50-6.00); RDW-CV 16.5 % (10.5-14.5); WBC 7.6 thou/uL (4.0-11.0)
[2020-04-26 05:38] LABS: CALCIUM 7.5 mg/dL (8.5-10.1); CREATININE 1.6 mg/dL (0.6-1.3); POTASSIUM 3.7 mmol/L (3.5-5.1)
[2020-04-26 05:49] LABS: ALBUMIN 2.9 g/dL (3.4-5.0); TOTAL BILIRUBIN 0.3 mg/dL (<0.1-1.0); TOTAL PROTEIN 6.7 g/dL (6.4-8.2)
--- NOTE | 2020-04-26 06:16 | NUR ---
DERRICK NOTIFIED UPON PT RETURN FROM CT. PT WAS NOT CONNECTED TO MONITOR HE WAS NOT PRIOR TO CT
[2020-04-26 06:34] LABS: URINE BLOOD NEGATIVE (Negative); URINE CLARITY CLEAR; URINE COLOR YELLOW; URINE GLUCOSE-RANDOM 1+ (Negative); URINE KETONES 1+ (Negative); URINE LEUKOCYTES-REFLEX NEGATIVE (Negative); URINE NITRITE-REFLEX NEGATIVE (Negative); URINE PROTEIN NEGATIVE (Negative); URINE SPECIFIC GRAVITY >= 1.030 (1.005-1.030); URINE UROBILINOGEN 0.2 E.U./dl (0.2-1.0)
[2020-04-26 06:36] LABS: ICTOTEST (BILI CONFIRMATORY) Negative (Negative); URINE BILIRUBIN 1+ (Negative)
[2020-04-26 08:18] LABS: AMP/METHAMP Negative (Negative); BARBITURATES Negative (Negative); BENZODIAZEPINES Negative (Negative); COCAINE Negative (Negative); METHADONE Negative (Negative); OPIATES Negative (Negative); PCP Negative (Negative); THC Negative (Negative)
[2020-04-26 09:17] VITALS: BP 129/79
[2020-04-26 09:30] VITALS: BP 110/75
--- NOTE | 2020-04-26 13:25 | EKG ---
[place] [address] ELECTROCARDIOGRAM REPORT Name: INDRA BEGUM LYLA Room: [address]R.#: [id number] Admission: 04/26/20 Attend Phys: Susanne martinez Sa Discharge: Date of : 59 Date of Service: 04/26/20 0523 Report #: [id number] THIS REPORT FOR: //name// [facility] ED Test Date: 2020-04-26 Test Time: 05:23:21 Pat Name: INDRA BEGUM Department: Room: [facility] Gender: M Transfer Driver: ERNIE : 1955 Requested By: Jose Bowling Order Number: [id number] MD: Rafa Barker Measurements Intervals [place] Rate: 95 P: 55 MN: 220 QRS: -36 QRSD: 84 T: 58 QT: 353 QTc: 444 Interpretive Statements Sinus rhythm Prolonged MN interval Left axis deviation Low voltage, precordial leads RSR' in V1 or V2, probably normal variant Nonspecific T abnormalities, anterior leads Compared to ECG 03/27/2020 08:16:11 First degree AV block now present Left-axis deviation now present RSR' in V1 or V2 now present T-wave abnormality now present Electronically Signed On 04-26-2020 13:25:15 CDT by Rafa Barker [email or web address] <ELECTRONICALLY SIGNED> By: Rafa Barker MD, [facility] 04/26/20 1325 0523 Rafa Barker MD, [facility] /EPI
[2020-04-26 16:00] VITALS: BP 96/58
--- NOTE | 2020-04-26 18:00 | NUR ---
PT. ADMITTED TO ROOM AROUND 0930. VSS, SR ON MONITOR, DENIES PAIN, C/O OF NAUSEA, AOX4. ADMISSION INTERVENTIONS COMPLETED. CALL LIGHT, PERSONAL BELONINGS AND URINAL PLACED AT BEDSIDE. PT. IN BED, WATCHING TV, IN NO APPARENT DISCOMFORT, AT SHIFT CHANGE.
[2020-04-26 19:50] VITALS: BP 109/73
[2020-04-27] VITALS: BP 116/71
[2020-04-27 02:06] LABS: GLYCOHEMOGLOBIN (HGB A1C) 4.8 % (4.8-5.6)
[2020-04-27 04:00] VITALS: BP 119/79
[2020-04-27 08:00] VITALS: BP 123/77
[2020-04-27 08:03] LABS: HEMATOCRIT 32.6 % (42.0-52.0); HEMOGLOBIN 11.2 gm/dL (14.0-18.0); MCH 32.5 pg (26.0-34.0); MCHC 34.2 g/dL (28.0-37.0); MPV 6.8 fl. (7.2-11.1); RBC 3.43 mil/uL (4.50-6.00); RDW-CV 16.7 % (10.5-14.5); WBC 7.6 thou/uL (4.0-11.0)
[2020-04-27 08:32] LABS: ALBUMIN 2.6 g/dL (3.4-5.0); CALCIUM 7.5 mg/dL (8.5-10.1); MAGNESIUM 1.2 mg/dL (1.8-2.4); POTASSIUM 3.8 mmol/L (3.5-5.1); TOTAL BILIRUBIN 0.5 mg/dL (<0.1-1.0); TOTAL PROTEIN 5.9 g/dL (6.4-8.2)
[2020-04-27 11:27] VITALS: BP 123/81
[2020-04-27 15:30] VITALS: BP 124/84
--- NOTE | 2020-04-27 18:37 | NUR ---
PT. AOX4, VSS, PAIN UNDER CONTROL, IMPROVED NAUSEA. UP WITH PT USING WALKER, TOLERATED WELL. PO INTAKE ADEQUATE, IVF D/ARTURO. CALL LIGHT AND PERSONAL BELONGINGS PLACED WITHIN REACH. PT. IN BED, WATCHING TV, IN NO APPARENT DISTRESS AT TIME OF SHIFT CHANGE.
[2020-04-27 19:20] VITALS: BP 121/73
[2020-04-28] VITALS: BP 126/71
[2020-04-28 04:34] VITALS: BP 157/70
[2020-04-28 07:45] VITALS: BP 120/80
[2020-04-28 12:17] VITALS: BP 113/69
[2020-04-28 16:51] VITALS: BP 120/78
--- NOTE | 2020-04-28 18:58 | NUR ---
pt. vss, aox4, pain and nausea under control, sr on monitor. assisted pt to bedroom, stb assist. call light and personal belongings placed within reach. pt. in bed, resting with eyes closed, at time of shift change, no apparent distress noted.
[2020-04-28 20:00] VITALS: BP 130/70
[2020-04-29] VITALS (8 sets, daily range): BP systolic 86–143; BP diastolic 56–90
--- NOTE | 2020-04-29 07:58 | NUR ---
PT A+OX4. PRN PAIN AND ANXIETY MEDICATION GIVEN. PT FINALLY ABLE TO FALL ASLEEP. MAG REPLACEMENT EFFECTIVE. CALL LIGHT IN REACH. HOURLY ROUNDING FOR SAFETY.
[2020-04-29] MEDS ORDERED: BENTYL 10 MG CA10 MG PO (08:33)
[2020-04-29] MEDS ORDERED: PANCRELIPASE PO (08:33)
[2020-04-29] MEDS ORDERED: AMITRIPTYLINE H25 M2 PO (08:33)
--- NOTE | 2020-04-29 16:48 | NUR ---
YUMIKO faxed referral and dc orders/med list to pt preference and history of HH: [facility]. Pt was set to dc today but then had blood pressure issues so dc was delayed until tomorrow. [facility] ph [phone]
[2020-04-30 04:00] VITALS: BP 152/100
--- NOTE | 2020-04-30 06:29 | NUR ---
Pt alert and oriented. VSS on RA. Meds given per emar. Pt slept well this shift. Pain Meds given this shift. Muscle relaxant given this shift. Pt on STB to the bathroom. Pt voided 900ml out via urinals. SR on the monitor. Call light within reach. Hourly roundings made. Will conitune to monitor.
[2020-04-30 08:00] VITALS: BP 111/79
[2020-04-30 12:11] VITALS: BP 100/71
--- NOTE | 2020-04-30 13:26 | NUR ---
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
== END 2020-04-30 14:22 | disposition home health service (06) | DRG 392 ==
LOC: M.ERS 04:51 → M.2W 06:48 → M.TBA-ER 06:48 → M.2W 09:11
PROVIDERS: Emergency Medicine Emergency Medical Services; Internal Medicine; ADMIT Family Medicine; ATTEND Family Medicine
DX: R11.2 Nausea with vomiting, unspecified (principal); F10.239 Alcohol dependence with withdrawal, unspecified; K21.9 Gastro-esophageal reflux disease without esophagitis; N40.0 Benign prostatic hyperplasia without lower urinary tract symptoms; F17.210 Nicotine dependence, cigarettes, uncomplicated; K76.0 Fatty (change of) liver, not elsewhere classified; I48.91 Unspecified atrial fibrillation; K22.0 Achalasia of cardia; I95.9 Hypotension, unspecified; J44.9 Chronic obstructive pulmonary disease, unspecified; S16.1XXA Strain of muscle, fascia and tendon at neck level, initial encounter; X58.XXXA Exposure to other specified factors, initial encounter; Y90.9 Presence of alcohol in blood, level not specified; Z20.828 Contact with and (suspected) exposure to other viral communicable diseases; Y93.89 Activity, other specified; Y92.89 Other specified places as the place of occurrence of the external cause; Y99.8 Other external cause status; Z88.0 Allergy status to penicillin; Z91.041 Radiographic dye allergy status; Z79.01 Long term (current) use of anticoagulants; Z79.899 Other long term (current) drug therapy